=== PATIENT | female | born 1970 ===

== ENCOUNTER 2017-02-28 10:36 | Emergency (ER) | payer BC ==
[2017-02-28 10:37] VITALS: BMI 26.6
--- NOTE | 2017-02-28 11:01 | ED PDOC ---
Arrival/HPI - General Historian: Patient - History of Present Illness Time/Duration: 24 hours Symptom Course: Intermittent Quality: Stabbing, Cramping Severity Level: 8 Context: Standing, Walking - General Chief Complaint: Abdominal Pain Time Seen by Provider: 02/28/17 10:41 - History of Present Illness Narrative History of Present Illness (Text): 02/28/17 11:10 46 yo F w h/o pancreatic CA s/p Whipple procedure May 2016 presented to ER with c/o BRBPR and lower abdominal pain. Patient states she was discharged from [facility] on Saturday after having endoscopically clipped gastric wall tear. Patient was well following discharge until yesterday when she started having sharp, occasionally cramping lower abdominal pain and BRBPR. Last BM was last night, which reportedly contained small bright red clots and mucus. Patient denies CP, SOB, fevers, chills, melena, hematemesis, dizziness, confusion. Patient denies previous colonoscopy. (Felisha Redd) Past Medical History - Provider Review Nursing Documentation Reviewed: Yes - Travel History Have you recently traveled outside [place] w/in the past 3 mons?: No - Infectious Disease Hx of Infectious Diseases: None - Tetanus Immunization Tetanus Immunization: Unknown - Past Medical History Past Medical History: No Previous - Pulmonary Hx Asthma: Yes - Endocrine/Metabolic Other/Comment: Pancreatic CA - s/p chemo - Hematological/Oncological Hx Cancer: Yes (Pancreatic CA) - Psychiatric Hx Depression: No Hx Emotional Abuse: No Hx Physical Abuse: No Hx Substance Use: No - Past Surgical History Past Surgical History: No Previous - Surgical History Hx Section: Yes - Anesthesia Hx Anesthesia: Yes Hx Anesthesia Reactions: No Hx Malignant Hyperthermia: No - Suicidal Assessment Feels Threatened In Home Enviroment: No Family/Social History - Physician Review Nursing Documentation Reviewed: Yes Family/Social History: Diabetes, CAD/MA Smoking Status: Current Some Days Smoker Hx Alcohol Use: No Hx Substance Use: No Hx Substance Use Treatment: No Allergies/Home Meds Allergies/Adverse Reactions: Allergies No Known Allergies Allergy (Verified 02/28/17 11:03) Review of Systems - Physician Review All systems were reviewed & negative as marked: Yes - Review of Systems Constitutional: Fatigue. absent: Fevers Eyes: absent: Vision Changes ENT: absent: Hearing Changes Respiratory: absent: SOB, Cough, Sputum Cardiovascular: Edema (BL LEs). absent: Chest Pain Gastrointestinal: Abdominal Pain (lower), Hematochezia. absent: Constipation, Diarrhea, Nausea, Vomiting, Hematemesis Genitourinary Female: absent: Dysuria Skin: absent: Rash, Skin Lesions Neurological: absent: Headache, Dizziness, Focal Weakness Endocrine: absent: Diaphoresis, Polyuria, Polydipsia Hemo/Lymphatic: absent: Adenopathy, Easy Bleeding, Easy Bruising Psychiatric: absent: Anxiety, Depression Physical Exam Temperature: Afebrile Blood Pressure: Normal Pulse: Regular Respiratory Rate: Normal Appearance: Positive for: Well-Appearing, Comfortable Pain Distress: Mild Mental Status: Positive for: Alert and Oriented X 3 - Systems Exam Head: Present: Atraumatic, Normocephalic Pupils: Present: PERRL. No: Sluggish Extroacular Muscles: Present: EOMI. No: Gaze Palsy Mouth: Present: Moist Mucous Membranes Nose (External): Present: Atraumatic. No: Abrasion Nose (Internal): Present: Normal Inspection Neck: Present: Normal Range of Motion. No: Meningeal Signs, JVD Respiratory/Chest: Present: Clear to Auscultation, Good Air Exchange. No: Respiratory Distress, Accessory Muscle Use Cardiovascular: Present: Regular Rate and Rhythm, Normal S1, S2 Abdomen: Present: Tenderness (lower abdomen), Normal Bowel Sounds, Scars. No: Distention, Peritoneal Signs, Rebound, Guarding Upper Extremity: Present: Normal Inspection. No: Cyanosis, Edema Lower Extremity: Present: Edema (1+ BL LE pitting ). No: CALF TENDERNESS, Cyanosis, Toan's Sign Neurological: Present: GCS=15, CN II-XII Intact, Speech Normal Skin: Present: Warm, Dry. No: Rashes Psychiatric: Present: Alert, Oriented x 3, Normal Insight, Normal Concentration Vital Signs Temp Pulse Resp BP Pulse Ox 02/28/17 15:44 94 H 16 93/53 L 99 02/28/17 11:43 79 18 104/65 100 02/28/17 10:56 98.9 F 86 18 95/67 L 100 02/28/17 10:37 98.2 F 83 18 105/58 L 97 Medical Decision Making Re-evaluation Time: 15:02 Reassessment Condition: Re-examined, Improved - Lab Interpretations I have reviewed the lab results: Yes - RAD Interpretation [facility] Examiner: Radiologist - EKG Interpretation Interpreted by ED Physician: Yes Type: 12 lead EKG ED Course and Treatment: Patient seen and examined with resident Came up with treatment and disposition plan with resident A 46 year old female with rectal bleeding and lower abdominal pain. In agreement with resident note, which includes further HPI details. (AuroraantionetteColeman) 02/28/17 11:30 46 yo F w h/o pancreatic cancer s/p whipple presented with BRBPR and lower abdominal pain. Labs, EKG, CT A/P with IV and PO contrast, EKG, Type and Screen. IV protonix, IVF. Records requested from [facility]. Called GI, Dr. Turner for evaluation. 02/28/17 11:[address] Turner in ER. Requests CT A/P with PO and IV contrast if kidney function ok on labwork. 02/28/17 13:34 Patient re-evaluated. Denies abdominal pain at this time. Patient refuses CT A/P , states she recently had one done at [facility], requests transfer to [facility] since they have not yet sent us her old records. [facility] contacted, awaiting call back from potential accepting physician (Dr. Quezada as per patient). 02/28/17 14:14 Patient re-examined. NAD. Denies any further abd pain. Denies BRBPR since this AM, had small BM, normal formed. Currently drinking PO contrast. Patient agreeable to admission here and potential transfer at a later time if [facility] physician cannot be contacted. 02/28/17 14:[address] Quezada at [facility], where the patient was recently admitted. Case discussed in-depth. He recommends outpatient GI followup with the patient's deaf interpreter at [facility]. Patient agreeable with plan, finishing PO contrast for CT A/P. 02/28/17 18:[address] Turner regarding CT results. (see full report). Concerned re: colonoscopy prep given uncertain location of recent gastric bleed/tear. Willing to do flex sig if family is agreeable. Spoke with patient and her , who is at bedside. They prefer to see GI in AM in office. Patient denies any abdominal pain currently, abdomen is soft, nontender, nondistended, no rebound, guarding or rigidity. Patient able to tolerate PO intake without abdominal pain, nausea, or any problems. Patient and extensively counseled regarding need for immediate GI followup, continue iron and protonix meds given at [facility] (patient states she has all prescriptions and does not want new ones). Patient also instructed to maintain clear liquid diet, as suggested by Dr. Turner until she can followup with GI in the office. Patient counseled to return to ER immediately if she starts having rectal bleeding again, fevers, chills, CP, SOB, or any concerning symptoms. Patient and her are agreeable and request discharge. (Felisha Redd) - Lab Interpretations Lab Results: 02/28/17 12:00 02/28/17 12:00 Lab Results 02/28/17 12:00: WBC 6.6, RBC 2.79 L, Hgb 8.6 L, Hct 26.0 L, MCV 93.2, MCH 30.8, MCHC 33.1, RDW 18.6 H, Plt Count 159, MPV 11.9 H, Gran % 80.0 H, Lymph % (Auto) 11.8 L, Pine % (Auto) 7.4 H, Eos % (Auto) 0.8 L, Baso % (Auto) 0.0, Gran # 5.30 , Lymph # 0.8 L, Pine # 0.5, Eos # 0.1, Baso # 0.00, Sodium 136, Potassium 3.8, Chloride 107, Carbon Dioxide 24, Anion Gap 9 L, BUN 11, Creatinine 0.6, Est GFR ( Amer) > 60, Est GFR (Non-Af Amer) > 60, Random Glucose 97, Calcium 7.6 L, Magnesium 2.0, Iron 56, TIBC 212 L, % Saturation 26, Ferritin Pending, Total Bilirubin 2.7 H, AST 94 H, ALT 45, Alkaline Phosphatase 148 H, Troponin I < 0.01 , Total Protein 6.5, Albumin 2.2 L, Globulin 4.3, Albumin/Globulin Ratio 0.5 L, Blood Type O POSITIVE, Antibody Screen Negative, BBK History Checked No verified bt - RAD Interpretation Narrative RAD Interpretations (Text): 02/28/17 18:11 CT A/P with PO and IV contrast Vrad read -- marked hepatic steatosis and hepatosplenomegaly. Findings could be associated with chronic liver disease such as cirrhosis or liver failure. There is also mild ascites identified. There is fluid and edema in the mesentery and retroperitoneum, this could be in relation to liver failure although sequela of pancreatitis are also a consideration. Pancreas itself does not show any direct inflammatory changes. Please correlate with amylase and lipase level. Postsurgical changes. There is moderate thickening of the colonic loops as described. Presence of mild colitits cannot be excluded. Please correlate clinically. Bilateral ovarian cysts as described. Please followup with sonogram to ensure stability. (Felisha Redd) Radiology Orders: 02/28/17 13:01 ABD PELVIS PO & IV CONTRAST [CT] Stat - EKG Interpretation EKG Interpretation (Text): 02/28/17 14:15 NSR 83bpm, No St-T wave abnormalities. (Felisha Redd) - Medication Orders Current Medication Orders: Discontinued Medications Sodium Chloride (Sodium Chloride 0.9%) 1,000 mls @ 999 mls/hr IV .Q1H1M STA Stop: 02/28/17 12:18 Last Admin: 02/28/17 11:58 Dose: 999 MLS/HR eMAR Start Stop Document 02/28/17 11:58 MMA (Rec: 02/28/17 11:58 [facility] [id number]) Intravenous Solution Start Date 02/28/17 Start Time 11:58 End Date 02/28/17 End time 12:58 Total Infusion Time 60 Iohexol (Omnipaque 240 (50 Ml)) Confirm Administered Dose 50 ml .ROUTE .STK-MED ONE Stop: 02/28/17 13:06 Iohexol (Omnipaque 350 100 Ml) Confirm Administered Dose 350 mg .ROUTE .STK-MED ONE Stop: 02/28/17 13:12 Pantoprazole Sodium (Protonix Inj) 40 mg IVP STAT STA Stop: 02/28/17 11:19 Last Admin: 02/28/17 11:57 Dose: 40 MG IVP Administration Document 02/28/17 11:57 MMA (Rec: 02/28/17 11:58 MMA [id number]) Charges for Administration # of IVP Administrations 1 Pantoprazole Sodium (Protonix Inj) 40 mg IVP STAT STA Stop: 02/28/17 18:40 Disposition/Present on Arrival - Present on Arrival Any Indicators Present on Arrival: No History of DVT/PE: No History of Uncontrolled Diabetes: No Urinary Catheter: No History of Decub. Ulcer: No History Surgical Site Infection Following: None - Disposition Have Diagnosis and Disposition been Completed?: Yes Disposition Time: 18:39 Patient Plan: Discharge - Disposition Diagnosis: Abdominal pain Disposition: HOME/ ROUTINE Patient Problems: Current Active Problems Problem Status Diagnosed Abdominal pain Acute Condition: STABLE Discharge Instructions (ExitCare): Abdominal Pain (ED) Print Language: S[place]ORE[place] Additional Instructions: Please followup with your primary care physician within 1-3 days. Please followup with your deaf interpreter at [facility] within 1-3 days. Please maintain a clear liquid diet until you followup with your deaf interpreter. Referrals: Nagi Damon MD [Primary Care Provider] - Follow up with primary Forms: WORK NOTE, MTDTS
[2017-02-28 11:03] VITALS: TEMP 98.9
[2017-02-28] MEDS ORDERED: Sodium Chloride 0.9% 1,000 ML IV STA (11:18)
[2017-02-28 12:08] LABS: ADD MANUAL DIFF? NO
[2017-02-28 12:16] LABS: EOS # 0.1 (0.0-0.7); EOS % 0.8 % (1.5-5.0); LYMPH # 0.8 (1.2-3.4); LYMPH % 11.8 % (22.0-35.0); MEAN CELL VOLUME 93.2 fL (80.0-105.0); MEAN CORPUSCULAR HEMOGLOBIN 30.8 pg (25.0-35.0); MEAN CORPUSCULAR HGB CONC 33.1 g/dl (31.0-37.0); MEAN PLATELET VOLUME 11.9 fl (7.0-11.0); MONO # 0.5 (0.1-0.6); MONO % 7.4 % (1.0-6.0); PLATELET COUNT 159 10^3/uL (120.0-450.0); RED CELL DISTRIBUTION WIDTH 18.6 % (11.5-14.5); WHITE BLOOD COUNT 6.6 10^3/ul (4.5-11.0)
[2017-02-28 12:23] LABS: ALB/GLOB RATIO 0.5 (1.1-1.8); ALKALINE PHOSPHATASE 148 U/L (38-133); ALT/SGPT 45 U/L (7-56); AST/SGOT 94 U/L (15-39); BILIRUBIN,TOTAL 2.7 mg/dL (0.2-1.3); BLOOD UREA NITROGEN 11 mg/dL (7-21); CALCIUM 7.6 mg/dL (8.4-10.5); CARBON DIOXIDE 24 mmol/L (21-33); CHLORIDE 107 mmol/L (98-107); GFR AFRICAN-AMERICAN > 60; GLUCOSE,RANDOM 97 mg/dL (70-110); POTASSIUM 3.8 mmol/L (3.6-5.0); SODIUM 136 mmol/L (132-148); TOTAL PROTEIN 6.5 g/dL (5.8-8.3)
[2017-02-28 12:31] LABS: IRON 56 ug/dL (45-180)
[2017-02-28 12:45] LABS: TROPONIN I < 0.01 ng/mL
[2017-02-28] MEDS ORDERED: Iohexol 240 (50 ml) ONE (13:05)
[2017-02-28] MEDS ORDERED: Iohexol 350 MG/100 ML VIAL ONE (13:11)
--- NOTE | 2017-02-28 14:55 | CP.PCM.CON ---
History of Present Illness - History of Present Illness History of Present Illness: Seen and examined earlier this afternoon in the ER with family at bedside. Request for consult is for BRBPR. HPI: This is a 46 year old female with history of Pancreatic Cancer, s/p chemotherapy, s/p Whipple in 05/2016 at [facility] comes to the ER with complaints of BRBPR and lower abdominal pain. Her daughter is at the bedside reports that it started started yesterday, noted small amount of blood with stool and today she had another episode with mucous and bloody stool. She has pain lower abdomen to her back. She was recently at [facility] for gastric wall tear which was endocopically clipped. Patient never had colonoscopy. She denies SOB, CP, N/V, fever chills, dizziness. PMH: Pancreatic Cancer, s/p chemo, Gastric wall tear s/p clipping, Asthma SHX: Whipple (05/2016), EGD for gastric wall tear, FHX: DM, CAD Social (+) smoking, denies ETOH, drugs MEDS: reviewed as per MAR ALLERGIES: NKDA ROS: systems reviewed with positive findings, see HPI Past Patient History - Infectious Disease Hx of Infectious Diseases: None - Tetanus Immunizations Tetanus Immunization: Unknown - Past Social History Smoking Status: Current Some Days Smoker - PULMONARY Hx Asthma: Yes - ENDOCRINE/METABOLIC Other/Comment: Pancreatic CA - s/p chemo - HEMATOLOGICAL/ONCOLOGICAL Hx Cancer: Yes (Pancreatic CA) - PSYCHIATRIC Hx Depression: No Hx Emotional Abuse: No Hx Physical Abuse: No Hx Substance Use: No - SURGICAL HISTORY Hx Section: Yes - ANESTHESIA Hx Anesthesia: Yes Hx Anesthesia Reactions: No Hx Malignant Hyperthermia: No Meds Allergies/Adverse Reactions: Allergies Allergy/AdvReac Type Severity Reaction Status Date / Time No Known Allergies Allergy Verified 02/28/17 11:03 Physical Exam - Constitutional Appears: No Acute Distress - Head Exam Head Exam: NORMAL INSPECTION - Eye Exam Eye Exam: Normal appearance, PERRL. absent: Scleral icterus - ENT Exam ENT Exam: Mucous Membranes Moist - Neck Exam Neck exam: Positive for: Normal Inspection - Respiratory Exam Respiratory Exam: Clear to Auscultation Bilateral, NORMAL BREATHING PATTERN. absent: Respiratory Distress - Cardiovascular Exam Cardiovascular Exam: +S1, +S2 - GI/Abdominal Exam GI & Abdominal Exam: Normal Bowel Sounds, Soft, Tenderness (bilat lower abodmen) . absent: Guarding, Rebound - Extremities Exam Extremities exam: Positive for: normal inspection, pedal pulses present. Negative for: calf tenderness, pedal edema - Neurological Exam Neurological exam: Alert, Oriented x3 - Skin Skin Exam: Dry, Warm Results - Vital Signs Recent Vital Signs: Last Vital Signs Temp 98.9 F 02/28/17 10:56 Pulse 79 02/28/17 11:43 Resp 18 02/28/17 11:43 BP 104/65 02/28/17 11:43 Pulse Ox 100 02/28/17 11:43 - Labs Result Diagrams: 02/28/17 12:00 02/28/17 12:00 Labs: Laboratory Results - last 24 hr 02/28/17 12:00 WBC 6.6 RBC 2.79 L Hgb 8.6 L Hct 26.0 L MCV 93.2 MCH 30.8 MCHC 33.1 RDW 18.6 H Plt Count 159 MPV 11.9 H Gran % 80.0 H Lymph % (Auto) 11.8 L [place] % (Auto) 7.4 H Eos % (Auto) 0.8 L Baso % (Auto) 0.0 Gran # 5.30 Lymph # 0.8 L [place] # 0.5 Eos # 0.1 Baso # 0.00 Sodium 136 Potassium 3.8 Chloride 107 Carbon Dioxide 24 Anion Gap 9 L BUN 11 Creatinine 0.6 Est GFR ( Amer) > 60 Est GFR (Non-Af Amer) > 60 Random Glucose 97 Calcium 7.6 L Magnesium 2.0 Iron 56 TIBC 212 L % Saturation 26 Total Bilirubin 2.7 H AST 94 H ALT 45 Alkaline Phosphatase 148 H Troponin I < 0.01 Total Protein 6.5 Albumin 2.2 L Globulin 4.3 Albumin/Globulin Ratio 0.5 L Blood Type O POSITIVE Antibody Screen Negative BBK History Checked No verified bt Assessment & Plan - Assessment and Plan (Free Text) Assessment: ASSESSMENT: 46 year old female with PMH of Pancreatic cancer s/p Whipple and chemo, recent gastric wall tear with endoscopic clipping comes with c/o BRBPR and lower abdominal pain. R/O Colitis R/O Diverticular bleed R/O angiodysplasia R/O Hemorrhoids H/O Asthma PLAN: request for ct scan abdomen and pelvis with oral and IV contrast, renal functions stable monitor H/H, bleeding NPO, continue IVF Request records form [facility] for review may benefit from colonoscopy in view of bleeding but will await to review ct scan A&P. Thank you for this consult and for allowing us to participate in y our patients care, will make further recommendations after review of ct scan and based upon patient clinical course. Seen and discussed with Dr. Turner. Spoke to ER Resident.
[2017-02-28 15:45] VITALS: BP 93/53; PULSE 94; RESP 16; O2SAT 99
--- NOTE | 2017-02-28 15:45 | CARD ---
APPROVED REPORT EKG Measurement Heart [id number] <Conclusion> Normal sinus rhythm Normal ECG
--- NOTE | 2017-03-01 07:37 | CT ---
PROCEDURE: CT Abdomen and Pelvis with contrast HISTORY: rectal bleed, h/o pancreatic CA s/p whipple COMPARISON: None. TECHNIQUE: Contrast dose: Radiation dose: Total exam DLP = 100 mL Omnipaque 350 mGy-cm. This CT exam was performed using one or more of the following dose reduction techniques: Automated exposure control, adjustment of the mA and/or kV according to patient size, and/or use of iterative reconstruction technique. FINDINGS: LOWER THORAX: Unremarkable LIVER: Extensive hepatic steatosis. No mass. No biliary dilatation. Biliary stents are noted. Hepatomegaly. Liver measures 22.2 cm craniocaudal. GALLBLADDER AND BILE DUCTS: Status post cholecystectomy. PANCREAS: Status post Whipple procedure. Pancreatic tail and distal body appear intact. No fluid/ edema surrounding residual pancreatic tissue. SPLEEN: Splenomegaly. The spleen measures 14.6 cm greatest dimension. No mass. ADRENALS: Unremarkable. No mass. KIDNEYS AND URETERS: Unremarkable. No hydronephrosis. No solid mass. VASCULATURE: Unremarkable. No aortic aneurysm. BOWEL: Mild circumferential mural thickening involving hepatic flexure, transverse, descending and rectosigmoid colon, sparing the ascending colon to the level of the flexure. Nonspecific but may indicate infectious or inflammatory colitis. No evidence of bowel obstruction. Status post partial gastrectomy with gastrojejunostomy. APPENDIX: Unremarkable PERITONEUM: Mild ascites with fluid in the pericolic gutters and about the liver and spleen. Nonspecific. There is edema of the small bowel mesenteric. There are numerous shotty subcentimeter nodes seen within the small bowel mesenteric common nonspecific. LYMPH NODES: Few mildly enlarged retroperitoneal nodes. No pelvic lymphadenopathy. BLADDER: Unremarkable. REPRODUCTIVE: Unremarkable uterus. Left ovarian cyst, 2.5 x 3.7 cm. BONES: No acute fracture. OTHER FINDINGS: None. IMPRESSION: Status post Whipple procedure. Extensive hepatic steatosis. Two biliary stents. Hepatosplenomegaly. Mild ascites. Edema within the small bowel mesentery as well as numerous subcentimeter mesenteric lymph nodes, nonspecific. Circumferential mural thickening of the colon from the hepatic flexure to the rectosigmoid colon. Consistent with nonspecific colitis. Additional nonacute findings as above. Preliminary interpretation of this examination was reported by Therio at 6:09 p.m. on 02/28/2017. There is concurrence of this report with the preliminary interpretation.
== END 2017-02-28 19:18 | disposition home or self-care (01) ==
LOC: ED 10:36
DX: R10.30 Lower abdominal pain, unspecified (principal); F17.210 Nicotine dependence, cigarettes, uncomplicated
CPT/HCPCS: 74177; 80053; 82728; 83735; 84466; 84484; 85025; 86850; 86900; 93005; 96361; 96374; 99283; C9113; J7040; Q9966; Q9967

== ENCOUNTER 2017-03-19 14:48 | Inpatient (IN) | payer BC ==
[2017-03-19] MEDS ORDERED: Morphine 2 mg/ml ISec IVP STA (15:49)
--- NOTE | 2017-03-19 15:56 | ED PDOC ---
Arrival/HPI - General Chief Complaint: Medical Clearance Time Seen by Provider: 03/19/17 14:49 Historian: Patient - History of Present Illness Narrative History of Present Illness (Text): 03/19/17 15:49 A 46 year old female, whose past medical history includes pancreatic cancer s/p whipple in 2016, presents to the emergency department complaining of progressively worsening lower extremity swelling over the past 7-10 days. Patient notes an increase in abdominal girth, as well, abdominal pain radiating to her back. Patient reports she was recently seen at [facility] for elevated ammonia levels. Family states they noticed patient appeared jaundice 2 days ago. Patient was seen by PMD today who found patients blood pressure to be low and sent her in for further evaluation and treatment. Patient denies any fever, chills, nausea, vomiting, diarrhea, urinary symptoms, chest pain, shortness of breath or any other complaints. PMD: Dr. Damon Time/Duration: Other (7-10 days) Symptom Course: Worsening Quality: Other Context: Home Past Medical History - Provider Review Nursing Documentation Reviewed: Yes - Infectious Disease Hx of Infectious Diseases: None - Tetanus Immunization Tetanus Immunization: Unknown - Past Medical History Past Medical History: No Previous - Pulmonary Hx Asthma: Yes - Endocrine/Metabolic Other/Comment: Pancreatic CA - s/p chemo - Hematological/Oncological Hx Cancer: Yes (Pancreatic CA) - Gastrointestinal Other/Comment: Pancreatic Cancer. Liver Problems (Pt states new problem and is unclear as to what is going on). - Psychiatric Hx Depression: No Hx Emotional Abuse: No Hx Physical Abuse: No Hx Substance Use: No - Past Surgical History Past Surgical History: No Previous - Surgical History Hx Section: Yes (x2) Other/Comment: Whipple Surgery - Anesthesia Hx Anesthesia: Yes Hx Anesthesia Reactions: No Hx Malignant Hyperthermia: No - Suicidal Assessment Feels Threatened In Home Enviroment: No Family/Social History - Physician Review Nursing Documentation Reviewed: Yes Family/Social History: No Known Family HX Smoking Status: Current Some Days Smoker Hx Alcohol Use: No Hx Substance Use: No Hx Substance Use Treatment: No Allergies/Home Meds Allergies/Adverse Reactions: Allergies No Known Allergies Allergy (Verified 03/19/17 15:12) Home Medications: Home Meds Medication Instructions Recorded Confirmed Ferrous Sulfate [Feosol] 325 mg PO DAILY 03/19/17 03/19/17 Furosemide [Lasix] 40 mg PO DAILY 03/19/17 03/19/17 Lactulose [Generlac] 30 ml PO Q12 03/19/17 03/19/17 Lipase/Protease/Amylase [Zenpep Dr 5,000 unit PO TID 03/19/17 03/19/17 10,000 Units Capsule] Ondansetron 4 mg PO Q6 03/19/17 03/19/17 Pantoprazole [Protonix] 40 mg PO DAILY 03/19/17 03/19/17 Spironolactone [Aldactone] 0.5 tab PO DAILY 03/19/17 03/19/17 Sucralfate [Carafate] 1 gm PO Q6 03/19/17 03/19/17 Review of Systems - Physician Review All systems were reviewed & negative as marked: Yes - Review of Systems Constitutional: absent: Fevers, Night Sweats Respiratory: absent: SOB Cardiovascular: absent: Chest Pain Gastrointestinal: Abdominal Pain (radiating to back), Other (Abdominal girth). absent: Diarrhea, Nausea, Vomiting Genitourinary Female: absent: Dysuria, Frequency, Hematuria, Urine Output Changes Musculoskeletal: Other (Bilateral lower extremity swelling) Skin: Other (Jaundice) Physical Exam Vital Signs Reviewed: Yes Vital Signs Temp Pulse Resp BP Pulse Ox 03/19/17 15:57 86 18 102/61 99 03/19/17 14:53 98.2 F 95 H 18 100/58 L 99 Temperature: Afebrile Blood Pressure: Hypotensive Pulse: Tachycardic Respiratory Rate: Normal Appearance: Positive for: Comfortable, Other (Jaundiced 46 y.o. female) Pain Distress: None Mental Status: Positive for: Alert and Oriented X 3 - Systems Exam Head: Present: Atraumatic, Normocephalic Pupils: Present: PERRL Conjunctiva: Present: Other (scleral icterus) Mouth: Present: Moist Mucous Membranes Pharnyx: Present: Normal. No: ERYTHEMA, EXUDATE Neck: Present: Normal Range of Motion Respiratory/Chest: Present: Clear to Auscultation, Good Air Exchange. No: Respiratory Distress, Accessory Muscle Use Cardiovascular: Present: Regular Rate and Rhythm, Normal S1, S2. No: Murmurs Abdomen: Present: Distention (Mild distension), Normal Bowel Sounds. No: Tenderness, Peritoneal Signs Back: Present: Normal Inspection Upper Extremity: Present: Normal Inspection. No: Cyanosis, Edema Lower Extremity: Present: Normal Inspection, Edema (+2 edema bilaterally) Neurological: Present: GCS=15, CN II-XII Intact, Speech Normal Skin: Present: Warm, Dry, Normal Color. No: Rashes Psychiatric: Present: Alert, Oriented x 3, Normal Insight, Normal Concentration Medical Decision Making ED Course and Treatment: 03/19/17 15:49 Impression: A 46 year old female with worsening lower extremity swelling. Patient notes abdominal girth, abdominal pain radiating to back and jaundice. Plan: -- Chest xray -- Labs -- Blood and Urine culture -- Urinalysis -- Morphine -- Reassess and disposition Prior Visits: Notes and results from previous visits were reviewed. Patient last seen in the ED on 02/28/17 for abdominal pain. Progress Notes: 03/19/17 17:15 Patient pancreatic cancer with recurrence of jaundice now as well as edema. Will need GI and oncology eval. Labs showing anemia with bili up to 8.7 - will need to be admitted for further eval and treatment. Case was previously discussed with Dr. Damon who sent the patient to the ED. Case endorsed to resident Dr. Whitmore for admission orders. - Lab Interpretations Lab Results: 03/19/17 15:58 03/19/17 15:52 Lab Results 03/19/17 16:10: Urine Color Dark yellow, Urine Appearance Sl cloudy, Urine pH 6.0, Ur Specific [place] 1.025, Urine Protein 30 H, Urine Glucose (UA) Negative , Urine Ketones 15 H, Urine Blood Negative, Urine Nitrate Positive H, Urine Bilirubin Large H, Urine Urobilinogen 1.0 H, Ur Leukocyte Esterase Trace H, Urine RBC Tntc, Urine WBC 0 - 2, Ur Epithelial Cells 1 - 3, Urine Bacteria Mod 03/19/17 15:58: WBC 7.5, RBC 2.38 L, Hgb 7.8 L, Hct 22.8 L, MCV 95.8, MCH 32.8, MCHC 34.2, RDW 20.7 H, Plt Count 177, MPV 10.8, Gran % 79.2 H, Lymph % (Auto) 12.3 L, [place] % (Auto) 8.0 H, Eos % (Auto) 0.4 L, Baso % (Auto) 0.1, Gran # 5.93 , Lymph # 0.9 L, [place] # 0.6, Eos # 0.0, Baso # 0.01 03/19/17 15:52: Sodium 136, Potassium 3.9, Chloride 101, Carbon Dioxide 27, Anion Gap 12, BUN 9, Creatinine 0.7, Est GFR ( Amer) > 60, Est GFR (Non- Af Amer) > 60, Random Glucose 85, Calcium 7.3 L, Total Bilirubin 8.7 H, Direct Bilirubin Pending, AST 134 H, ALT 51, Alkaline Phosphatase 141 H, Total Protein 6.8, Albumin 2.0 L, Globulin 4.7, Albumin/Globulin Ratio 0.4 L, Amylase < 30 L, Lipase < 10 L 03/19/17 15:52: PT 22.0 H, INR 2.04 H, APTT 46.9 H I have reviewed the lab results: Yes - RAD Interpretation Radiology Orders: 03/19/17 15:15 CHEST PORTABLE [RAD] Stat - Medication Orders Current Medication Orders: Discontinued Medications Ceftriaxone Sodium (Rocephin 1 Gram Ivpb) 1 gm in 100 mls @ 200 mls/hr IV ONCE STA PRN Reason: Protocol Stop: 03/19/17 17:13 Last Admin: 03/19/17 16:56 Dose: 200 mls/hr Morphine Sulfate (Morphine) 2 mg IVP STAT STA Stop: 03/19/17 15:50 Last Admin: 03/19/17 16:21 Dose: 2 mg - Scribe Statement The provider has reviewed the documentation as recorded by the Dylanibdequan Chance Provider Scribe Attestation: All medical record entries made by the Dylanibdequan were at my direction and personally dictated by me. I have reviewed the chart and agree that the record accurately reflects my personal performance of the history, physical exam, medical decision making, and the department course for this patient. I have also personally directed, reviewed, and agree with the discharge instructions and disposition. Disposition/Present on Arrival - Present on Arrival Any Indicators Present on Arrival: No History of DVT/PE: No History of Uncontrolled Diabetes: No Urinary Catheter: No History of Decub. Ulcer: No History Surgical Site Infection Following: None - Disposition Have Diagnosis and Disposition been Completed?: Yes Diagnosis: Jaundice, Urinary tract infection Disposition: HOSPITALIZED Disposition Time: 16:40 Patient Plan: Admission Condition: FAIR Referrals: Nagi Damon MD [Primary Care Provider] - Follow up with primary
[2017-03-19 16:09] LABS: ADD MANUAL DIFF? NO
[2017-03-19 16:15] LABS: BASO # 0.01 K/mm3 (0.0-2.0); BASO % 0.1 % (0.0-3.0); EOS % 0.4 % (1.5-5.0); GRAN # 5.93 (1.4-6.5); GRAN % 79.2 % (50.0-68.0); LYMPH # 0.9 (1.2-3.4); LYMPH % 12.3 % (22.0-35.0); MEAN CELL VOLUME 95.8 fL (80.0-105.0); MEAN CORPUSCULAR HEMOGLOBIN 32.8 pg (25.0-35.0); MEAN CORPUSCULAR HGB CONC 34.2 g/dl (31.0-37.0); MEAN PLATELET VOLUME 10.8 fl (7.0-11.0); MONO # 0.6 (0.1-0.6); PLATELET COUNT 177 10^3/uL (120.0-450.0); RED CELL DISTRIBUTION WIDTH 20.7 % (11.5-14.5); WHITE BLOOD COUNT 7.5 10^3/ul (4.5-11.0)
[2017-03-19 16:23] LABS: INR 2.04 (0.93-1.08); PARTIAL THROMBOPLASTIN TIME 46.9 Seconds (23.7-30.8)
[2017-03-19 16:28] LABS: URINE BILIRUBIN LARGE (NEGATIVE); URINE BLOOD NEGATIVE (NEGATIVE); URINE GLUCOSE (UA) NEGATIVE (NEGATIVE); URINE KETONE 15 mg/dL (NEGATIVE); URINE LEUKOCYTE ESTERASE TRACE Leu/uL (NEGATIVE); URINE PROTEIN 30 mg/dL (<30 mg/dL)
[2017-03-19 16:29] LABS: HEMATOCRIT 22.8 % (36.0-48.0)
[2017-03-19 16:30] LABS: ALB/GLOB RATIO 0.4 (1.1-1.8); ALKALINE PHOSPHATASE 141 U/L (38-133); ALT/SGPT 51 U/L (7-56); AST/SGOT 134 U/L (15-39); BILIRUBIN,TOTAL 8.7 mg/dL (0.2-1.3); BLOOD UREA NITROGEN 9 mg/dL (7-21); CALCIUM 7.3 mg/dL (8.4-10.5); CARBON DIOXIDE 27 mmol/L (21-33); CHLORIDE 101 mmol/L (98-107); GFR AFRICAN-AMERICAN > 60; GLUCOSE,RANDOM 85 mg/dL (70-110); POTASSIUM 3.9 mmol/L (3.6-5.0); SODIUM 136 mmol/L (132-148); TOTAL PROTEIN 6.8 g/dL (5.8-8.3)
[2017-03-19 16:30] LABS: URINE APPEARANCE SL CLOUDY (CLEAR); URINE COLOR DARK YELLOW (YELLOW)
[2017-03-19 16:33] LABS: AMYLASE < 30 U/L (35-125); LIPASE < 10 U/L (23-300)
[2017-03-19 16:42] LABS: URINE BACTERIA MOD (NEG); URINE RBC TNTC /hpf (0-2); URINE WBC 0 - 2 /hpf (0-6)
[2017-03-19] MEDS ORDERED: cefTRIAXone 1 gm 1 GM/100 ML BAG IV STA (16:44)
[2017-03-19] MEDS: Morphine 2 mg/ml ISec IVP PRN (18:35)
--- NOTE | 2017-03-19 19:23 | US ---
EXAM: US Abdomen Complete CLINICAL HISTORY: 46 years old, female; Pain; Abdominal pain; Generalized; Prior surgery; Surgery date: 6+ months; Surgery type: Whipple; Additional info: R/O cirrhosis TECHNIQUE: Real-time ultrasound of the abdomen (complete) with image documentation. EXAM DATE/TIME: 03/19/2017 6:08 PM COMPARISON: CT - ABD PELVIS PO IV CONTRAST 02/28/2017 4:57:45 PM FINDINGS: Liver: There is diffuse increased echogenicity to the liver. Liver is enlarged.There is hepatopedal flow in the main portal vein. There is color flow in hepatic veins. Gallbladder: Gallbladder is surgically absent. Common bile duct: Common bile duct measures 5 mm in diameter. Pancreas: Pancreas is obscured by bowel gas. Kidneys: Kidneys are unremarkable. Spleen: Spleen is at lower 17.6 cm in length. Aorta: Aorta and inferior vena cava are not well demonstrated. Inferior vena cava: See above. Free fluid: There is ascites in all 4 quadrants of the abdomen, greatest in the right upper quadrant. IMPRESSION: Hepatosplenomegaly; fatty infiltration the liver; ascites; cholecystectomy, no ductal dilatation, biliary stent seen on CT 02/28/17 not definitely identified; nonvisualization of pancreas Patient was not tender over the gallbladder
[2017-03-19] MEDS: Albumin Human 25% (25 gm/100 ml) IV SCH (19:31)
[2017-03-19 20:56] VITALS: BMI 27.4
--- NOTE | 2017-03-19 21:46 | CP.PCM.HP ---
<Golden Whitmore - Last Filed: 03/20/17 09:46> History of Present Illness - History of Present Illness History of Present Illness: HPI: Patient is a 46yo female with past medical history of Pancreatic Ca s/p whipple, gastric wall tear s/p repair and asthma that presents c/o yellowing of her skin and eyes. Patient reports that 4 weeks prior she began to notice swelling of her legs. She reported having been prescribed diuretics for the leg swelling however noted no improvement. Shortly thereafter she was admitted to [facility] for abdominal pain and reportedly had a "slight tear in the lining of my stomach." She reports that this was surgically repaired and she was subsequently discharged home. Shortly after being discharged home, she reported having abdominal pain and coming to [facility] for evaluation at which point a CT abd/pelvis was done and she reported being discharged home. Patient reported that last Saturday she was found to be confused and altered by her family and was taken to [facility] where she was treated for hepatic encephalopathy. She was subsequently discharged on lactulose and instructed to follow up with her PMD, Dr. Damon. Today, she presents on recommendation of her PMD for further workup of her jaundice and worsening lower extremity edema. Denies chest pain, palpitations, SOB, nausea, vomiting, fever, chills, cough. 12 point ROS as per HPI above, otherwise negative PMHx: Pancreatic Ca, gastric wall tear, asthma PSHx: Whipple (06/02), , repair of gastric wall tear Allergies: NKDA Medications: Reviewed and as per chart Family Hx: DM, CAD Social Hx: Former tobacco use (quit 1yr ago), denies alcohol and illicit drug use Present on Admission - Present on Admission Any Indicators Present on Admission: No Past Patient History - Infectious Disease Hx of Infectious Diseases: None - Tetanus Immunizations Tetanus Immunization: Unknown - Past Social History Smoking Status: Former Smoker - CARDIAC Hx Cardiac Disorders: No - PULMONARY Hx Respiratory Disorders: Yes Hx Asthma: Yes - NEUROLOGICAL Hx Neurological Disorder: No - HEENT Hx HEENT Problems: No - RENAL Hx Chronic Kidney Disease: No - ENDOCRINE/METABOLIC Hx Endocrine Disorders: No - HEMATOLOGICAL/ONCOLOGICAL Hx Blood Disorders: Yes Hx Anemia: Yes (current) Hx Cancer: Yes (pancrratic cancer) - INTEGUMENTARY Hx Dermatological Problems: No - MUSCULOSKELETAL/RHEUMATOLOGICAL Hx Falls: No - GASTROINTESTINAL Hx Gastrointestinal Disorders: Yes Hx Gall Bladder Disease: Yes (biliary stent) Hx Pancreatitis: Yes (pancreatic cancer) - GENITOURINARY/GYNECOLOGICAL Hx Genitourinary Disorders: No - PSYCHIATRIC Hx Psychophysiologic Disorder: Yes Hx Depression: Yes - SURGICAL HISTORY Hx Surgeries: Yes (whipple, x2, abd internal clamp) Hx Cholecystectomy: (biliary stent) - ANESTHESIA Hx Anesthesia: Yes Hx Anesthesia Reactions: No Hx Malignant Hyperthermia: No Meds Allergies/Adverse Reactions: Allergies Allergy/AdvReac Type Severity Reaction Status Date / Time No Known Allergies Allergy Verified 03/19/17 15:12 Physical Exam - Constitutional Appears: Non-toxic, No Acute Distress - Head Exam Head Exam: ATRAUMATIC, NORMAL INSPECTION, NORMOCEPHALIC - Eye Exam Additional comments: EOMI, PERRLA icteric sclera - ENT Exam ENT Exam: Mucous Membranes Moist - Neck Exam Neck exam: Positive for: Normal Inspection - Respiratory Exam Respiratory Exam: Clear to Auscultation Bilateral. absent: Rales, Rhonchi, Wheezes - Cardiovascular Exam Cardiovascular Exam: RRR, +S1, +S2. absent: Gallop, Rubs - GI/Abdominal Exam GI & Abdominal Exam: Distended (mild distention), Soft. absent: Firm, Guarding , Rebound, Tenderness Additional comments: hepatomegaly - Extremities Exam Extremities exam: Positive for: pedal edema (2+ pitting edema), pedal pulses present. Negative for: tenderness - Neurological Exam Neurological exam: Alert, CN II-XII Intact, Oriented x3 - Psychiatric Exam Psychiatric exam: Normal Affect, Normal Mood - Skin Skin Exam: Dry, Intact, Warm Additional comments: jaundice Results - Vital Signs Recent Vital Signs: Last Vital Signs Temp 98.1 F 03/19/17 19:20 Pulse 88 03/19/17 19:54 Resp 20 03/19/17 20:26 BP 95/50 L 03/19/17 19:54 Pulse Ox 98 03/19/17 19:54 - Labs Result Diagrams: 03/20/17 06:00 03/20/17 06:00 Labs: Laboratory Results - last 24 hr 03/19/17 16:42 Ammonia 39 H Assessment & Plan - Assessment and Plan (Free Text) Plan: 1. Jaundice -EKG reviewed; normal sinus rhythm, no acute ST-T wave changes -CXR reviewed -Elevated bilirubin, AST, ALKP, Ammonia, INR -Abdominal US pending -CT abd/pelvis pending -CA19-9 Pending -Continue lactulose; will titrate to 2-3 bowel movement per day -Pending: hepatitis panel, serum alcohol, HIRO, anti-SMA, Anti-Mitochondrial ab, ceruloplasmin, ferritin, transferrin -GI consulted - Dr. Turner 2. History of pancreatic ca -CT abd/pelvis pending -CA19-9 Pending -Heme/onc consulted - Dr. Smith 3. Anemia -Iron, Ferritin, TIBC pending -B12, folate pending -Will continue to monitor H/H closely 4. GI/DVT prophylaxis -Protonix/SCD's Patient discussed with attending, Dr. Damon - Date & Time Date: 03/19/17 Time: 21:53 <Nagi Damon - Last Filed: 03/22/17 09:01> Results - Vital Signs Recent Vital Signs: Last Vital Signs Temp 98.2 F 03/21/17 19:49 Pulse 90 03/21/17 19:49 Resp 20 03/21/17 19:49 BP 119/71 03/21/17 19:49 Pulse Ox 97 03/21/17 16:00 - Labs Result Diagrams: 03/21/17 06:30 03/21/17 06:30 Labs: Laboratory Results - last 24 hr 03/20/17 03/20/17 06:00 07:38 HIRO Screen Negative HIRO Titer TEST NOT PERFORMED HIRO Titer 2 TEST NOT PERFORMED HIRO Pattern TEST NOT PERFORMED HIRO Pattern 2 TEST NOT PERFORMED Anti-Mitochondrial Ab Negative Anti-Smooth Muscle Ab Negative Blood Type O POSITIVE Antibody Screen Negative Crossmatch See Detail BBK History Checked Patient has bt Attending/Attestation - Attestation I have personally seen and examined this patient.: Yes I have fully participated in the care of the patient.: Yes I have reviewed all pertinent clinical information: Yes Notes (Text): 03/22/17 09:01 Medical record note made by the resident after discussion with my direction and input after the patient was personally seen and examined by me. I have reviewed the chart and agree that the record accurately reflects by personal performance of the history, physical exam, data review, and medical decision-making, in the course for the patient. I have also personally directed the plan of care.
[2017-03-19 22:24] LABS: RETIC% 2.43 % (0.5-1.5)
[2017-03-19 22:26] LABS: IRON 100 ug/dL (45-180)
[2017-03-19 22:29] LABS: ALCOHOL SERUM < 10 mg/dL (0-10)
[2017-03-20 06:23] LABS: ADD MANUAL DIFF? NO
[2017-03-20 06:27] LABS: BASO # 0.01 K/mm3 (0.0-2.0); BASO % 0.1 % (0.0-3.0); EOS % 0.5 % (1.5-5.0); GRAN # 5.83 (1.4-6.5); GRAN % 78.5 % (50.0-68.0); LYMPH % 13.4 % (22.0-35.0); MEAN CELL VOLUME 96.2 fL (80.0-105.0); MEAN CORPUSCULAR HEMOGLOBIN 32.7 pg (25.0-35.0); MEAN PLATELET VOLUME 10.1 fl (7.0-11.0); MONO # 0.6 (0.1-0.6); MONO % 7.5 % (1.0-6.0); PLATELET COUNT 142 10^3/uL (120.0-450.0); RED CELL DISTRIBUTION WIDTH 20.9 % (11.5-14.5); WHITE BLOOD COUNT 7.4 10^3/ul (4.5-11.0)
[2017-03-20 06:37] LABS: HEMATOCRIT 20.3 % (36.0-48.0)
[2017-03-20] MEDS ORDERED: Sodium Chloride 0.9% 1,000 ML IV SCH (06:45)
[2017-03-20 06:46] LABS: ALB/GLOB RATIO 0.5 (1.1-1.8); ALKALINE PHOSPHATASE 99 U/L (38-133); ALT/SGPT 50 U/L (7-56); AST/SGOT 127 U/L (15-39); BILIRUBIN,TOTAL 10.6 mg/dL (0.2-1.3); BLOOD UREA NITROGEN 11 mg/dL (7-21); CALCIUM 7.5 mg/dL (8.4-10.5); CARBON DIOXIDE 28 mmol/L (21-33); CHLORIDE 104 mmol/L (98-107); GFR AFRICAN-AMERICAN > 60; GLUCOSE,RANDOM 80 mg/dL (70-110); POTASSIUM 3.9 mmol/L (3.6-5.0); SODIUM 137 mmol/L (132-148); TOTAL PROTEIN 6.5 g/dL (5.8-8.3)
[2017-03-20] MEDS ORDERED: Barium Sulfate Susp 2.1% w/v, 2.0% w/w 450 mL Bottle PO ONE (07:17)
[2017-03-20] MEDS ORDERED: Iohexol 350 MG/100 ML VIAL ONE (08:28)
[2017-03-20] MEDS: Amylase/Lipase/Protease 5,000 U ECC PO SCH ×3 (08:31→18:41)
--- NOTE | 2017-03-20 08:36 | RAD ---
HISTORY: jaundice COMPARISON: No prior. FINDINGS: LUNGS: No active pulmonary disease. PLEURA: No significant pleural effusion identified, no pneumothorax apparent. CARDIOVASCULAR: Normal heart size. Left anterior Port-A-Cath -tip estimated right atrium. OSSEOUS STRUCTURES: No significant abnormalities. VISUALIZED UPPER ABDOMEN: Normal. OTHER FINDINGS: None. IMPRESSION: No active disease.
[2017-03-20] MEDS: Morphine 2 mg/ml ISec IVP PRN ×3 (10:00→20:51)
--- NOTE | 2017-03-20 10:53 | CON ---
DATE: 03/20/2017 REASON FOR CONSULTATION: History of pancreatic cancer, status post gastric wall tear and severe anem ia. HISTORY OF PRESENT ILLNESS: The patient is a 46-year-old female with past medical history significan t for pancreatic cancer, status post Whipple in 06/2016. Subsequently, also received adjuvant chemot herapy, but no radiation. Recently, the patient was seen by her oncologist at [place] and was noted t o have a low hemoglobin. She was discovered to have a gastric wall tear, status post repair. Now pr esents to the PMD with complaints of bilateral lower extremity swelling and noted to be jaundiced. S he was subsequently admitted and now being worked up for her severe anemia as well as elevation of to grace bilirubin. She denies any abdominal pain. She does complain of abdominal swelling and increased girth as well as bilateral lower extremity swelling. She has been recently found to be confused and altered mental status, and was taken to [facility] where she was treated for hepatic encephalopathy, subsequently discharged on lactulose. She does deny any nausea, vomiting, diarrhea. Denies any weight loss, but she has gained about 20 pounds of water weight. PAST MEDICAL HISTORY: As above. Significant for pancreatic cancer, gastric wall tear, asthma. PAST SURGICAL HISTORY: Significant for a Whipple's procedure in 2016, repair of gastric wall. ALLERGIES: No known drug allergies. MEDICATIONS: As per the chart. FAMILY HISTORY: Positive for diabetes, coronary artery disease. SOCIAL HISTORY: Positive for smoking in the past. Denies any alcohol or illicit drug use. REVIEW OF SYSTEMS: As per the HPI. PHYSICAL EXAMINATION: VITAL SIGNS: Reveal a temperature of 98.1, pulse of 88, respiratory rate of 20, and a blood pressure of 95/50. GENERAL: The patient is a middle-aged female sitting up in bed, in no acute distress. She is obviously jaundiced. HEAD AND NECK: Normocephalic, atraumatic. EYES: Pupils equal, round, reactive to light and accommodation. There is marked pallor. There is a lso icterus. NECK: Supple with no adenopathy, no JVD, no thyromegaly. LUNGS: Decreased breath sounds bilaterally at the bases. CARDIOVASCULAR: S1, S2 is heard. ABDOMEN: Ascites is palpable. EXTREMITIES: She has bilateral 3+ pitting edema. LABORATORY DATA: Reveal a white count of 7.4, hemoglobin 6.9, hematocrit 20.3, MCV of 96.2 and a karin telet count of 142. Chemistries reveal a BUN and creatinine of 11 and 0.7. Her total bilirubin is e levated at 10.6, AST is 127. Ammonia is high at 59. CA 19-9 is pending. Her iron studies are also pending. Coag studies reveal INR of 2.0. Tox report is negative for alcohol. Her UA is positive fo r leukocyte esterase as well as nitrites. ASSESSMENT AND PLAN: Middle-aged female with recent history of pancreatic cancer, status post resect ion with Whipple procedure, status post adjuvant chemotherapy. [facility] Also, the patient is currently getting a CT scan to rule out any active bleed ing as her hemoglobin has once again dropped to 6.9. Transfuse 2 units of PRBC. Hemolysis workup is also in process. She will need a complete staging workup once again to rule out recurrent disease. GI is also on consult. Thank you for this very complicated patient. Rajiv Smith MD cc: [id number] TT: 03/20/2017 10:52:49 Confirmation # [id number] Dictation # [id number] frances
[2017-03-20 11:02] LABS: TRANSFERRIN 83.33 mg/dL (206-381)
[2017-03-20] MEDS: Albumin Human 25% (25 gm/100 ml) IV SCH ×2 (11:22→18:41)
[2017-03-20] MEDS: Pantoprazole 40 mg EC Tab PO SCH (11:23)
--- NOTE | 2017-03-20 11:25 | CP.PCM.PN ---
<Golden Whitmore - Last Filed: 03/20/17 11:19> Subjective - Date & Time of Evaluation Date of Evaluation: 03/20/17 Time of Evaluation: 11:19 - Subjective Subjective: Medicine progress note - Golden Whitmore PGY 1 Patient seen and examined at bedside. No acute overnight events or new complaints. Discussed current workup/plan with patient in detail. Hgb was noted to be 6.9 this morning. Discussed with patient need for transfusion and consent was obtained. Will be transfused 2units pRBC's. Pending anemia workup to find the source of the blood loss. Denies chest pain, palpitations, SOB. Will continue to follow this complicated patient closely. Objective - Vital Signs/Intake and Output Vital Signs (last 24 hours): Temp Pulse Resp BP Pulse Ox 97.8 F 90 18 97/53 L 95 03/20/17 06:00 03/20/17 06:00 03/20/17 06:00 03/20/17 06:00 03/20/17 06:00 Intake and Output: 03/20/17 03/20/17 06:59 18:59 Intake Total 240 Balance 240 - Medications Medications: Current Medications Amylase (Pancrease 13521 U-5000 U-69811 U) 5,000 u PO WM TK Last Admin: 03/20/17 08:31 Dose: 5,000 u Ferrous Sulfate (Feosol) 324 mg PO DAILY TK Furosemide (Lasix) 40 mg PO DAILY TK Sodium Chloride (Sodium Chloride 0.9%) 1,000 mls @ 100 mls/hr IV .Q10H TK Lactulose (Enulose) 30 gm PO TID TK Morphine Sulfate (Morphine) 1 mg IVP Q4H PRN PRN Reason: Pain, severe (8-10) Last Admin: 03/19/17 18:35 Dose: 1 mg Pantoprazole Sodium (Protonix Ec Tab) 40 mg PO DAILY TK Spironolactone (Aldactone) 12.5 mg PO DAILY TK Sucralfate (Carafate Tab) 1 gm PO Q6 TK Last Admin: 03/20/17 05:30 Dose: 1 gm - Labs Labs: 03/20/17 06:00 03/20/17 06:00 PT 22.0 Seconds (9.9-11.8) H 03/19/17 15:52 INR 2.04 (0.93-1.08) H 03/19/17 15:52 APTT 46.9 Seconds (23.7-30.8) H 03/19/17 15:52 - Constitutional Appears: Non-toxic, No Acute Distress - Head Exam Head Exam: ATRAUMATIC, NORMAL INSPECTION, NORMOCEPHALIC - Eye Exam Eye Exam: EOMI, PERRL, Scleral icterus - ENT Exam ENT Exam: Mucous Membranes Moist - Neck Exam Neck Exam: Normal Inspection - Respiratory Exam Respiratory Exam: Decreased Breath Sounds. absent: Rales, Rhonchi, Wheezes - Cardiovascular Exam Cardiovascular Exam: RRR, +S1, +S2. absent: Gallop, Rubs - GI/Abdominal Exam GI & Abdominal Exam: Distended, Soft, Tenderness, Organomegaly. absent: Firm, Guarding, Rigid, Mass Additional comments: hepatomegaly - Extremities Exam Extremities Exam: Pedal Edema Additional comments: 3+bilateral pitting edema - Neurological Exam Neurological Exam: Alert, Awake, Oriented x3 - Psychiatric Exam Psychiatric exam: Normal Affect, Normal Mood - Skin Skin Exam: Dry, Intact, Warm Additional comments: visible jaundice Assessment and Plan - Assessment and Plan (Free Text) Plan: 1. Jaundice -EKG reviewed; normal sinus rhythm, no acute ST-T wave changes -CXR reviewed -Elevated bilirubin, AST, ALKP, Ammonia, INR -Abdominal US reviewed; hepatosplenomegaly; fatty infiltration of the liver; CBD within normal limits; see full report -CT abd/pelvis pending -MRI contraindicated due to patients history of metal gastric wall clips -Continue lactulose; will titrate to 2-3 bowel movement per day -Pending: hepatitis panel, serum alcohol, HIRO, anti-SMA, Anti-Mitochondrial ab, ceruloplasmin, ferritin, transferrin -GI consulted - Dr. Turner 2. Pancreatic ca s/p whipple -CT abd/pelvis pending -CA19-9 and alpha-fetoprotein pending -Per Dr. Smith, patient's records from her oncologist at [facility] will be obtained -Heme/onc consulted - Dr. Smith 3. Anemia -Iron, Ferritin, TIBC pending -B12, folate pending -Hgb dropped to 6.9 today from 7.8 on admission, consent was obtained for 2units pRBC's and patient will be transfused today -Source of the anemia yet to be determined, will continue thorough workup 4. GI/DVT prophylaxis -Protonix/SCD's Patient discussed with attending, Dr. Salcedo <Mirza Salcedo - Last Filed: 04/19/17 08:31> Objective - Vital Signs/Intake and Output Vital Signs (last 24 hours): Temp Pulse Resp BP Pulse Ox 98.2 F 90 20 119/71 97 03/21/17 19:49 03/21/17 19:49 03/21/17 19:49 03/21/17 19:49 03/21/17 16:00 - Labs Labs: 03/21/17 06:30 03/21/17 06:30 PT 26.3 Seconds (9.9-11.8) H 03/21/17 06:30 INR 2.44 (0.93-1.08) H 03/21/17 06:30 APTT 46.9 Seconds (23.7-30.8) H 03/19/17 15:52 Attending/Attestation - Attestation I have personally seen and examined this patient.: Yes I have fully participated in the care of the patient.: Yes I have reviewed all pertinent clinical information, including history, physical exam and plan: Yes Notes (Text): 04/19/17 08:31 Medical record note made by the resident after discussion with my direction and input after the patient was personally seen and examined by me. I have reviewed the chart and agree that the record reflects my personal performance of history, physical, data review and course for the patient that I have planned.
[2017-03-20 11:31] LABS: CA 19-9 45.9 U/mL (0-37)
[2017-03-20 12:01] LABS: FOLATE 10.8 ng/mL
--- NOTE | 2017-03-20 14:56 | CT ---
PROCEDURE: CT Abdomen and Pelvis with contrast HISTORY: history of pancreatic ca. History of prior Whipple's procedure. COMPARISON: 02/28/2017 TECHNIQUE: Contrast dose: 100 mL Omnipaque 350 Radiation dose: Total exam DLP = 891 mGy-cm. This CT exam was performed using one or more of the following dose reduction techniques: Automated exposure control, adjustment of the mA and/or kV according to patient size, and/or use of iterative reconstruction technique. FINDINGS: LOWER THORAX: Unremarkable. LIVER: Diffuse hepatic steatosis as before. No interval liver lesions noted. Biliary stents in place -as before. Enlarged liver GALLBLADDER AND BILE DUCTS: Status post cholecystectomy PANCREAS: Status post Whipple procedure. The pancreatic tail appears grossly unremarkable SPLEEN: Splenic size 14 cm borderline prominent -unchanged ADRENALS: Unremarkable. No mass. KIDNEYS AND URETERS: Unremarkable. No hydronephrosis. No solid mass. VASCULATURE: Unremarkable. No aortic aneurysm. BOWEL: The previously referenced mild circumferential mural thickening of the colon is less apparent on this exam. Some of the small bowel loops appear adherent to the anterior abdominal wall probably related to adhesions. Excluding any concomitant peritoneal implants here is problematic. No interval obstruction. No interval mural thickening suggested. APPENDIX: Nonvisualized. No gross pericecal inflammatory change PERITONEUM: Interval increased ascites. No free air. LYMPH NODES: The periportal and retroperitoneal and few mesenteric georgina densities similar in appearance as well as being nonspecific. No interval suspect change here is perceived BLADDER: Unremarkable. REPRODUCTIVE: The previously referenced left ovarian cystic appearance is similar. Another consideration would be a similar-appearing loculated left ascitic pocket No interval changes perceived. An interval small right ovarian follicular 1.8 cm cyst is suggested. BONES: No acute fracture. The benign a sclerotic focus at the inferior thoracic spine/disc level is unchanged OTHER FINDINGS: Interval increased anasarca IMPRESSION: Interval increased anasarca and interval increased ascites. Other findings as above.
--- NOTE | 2017-03-20 19:19 | PN ---
DATE: 03/20/2017 GASTROINTESTINAL FOLLOWUP NOTE Seen and examined at the bedside earlier today. The patient complains of abdominal pain, but slightly better. No nausea or vomiting. She tolerated the liquid diet. No fever or chills. VITAL SIGNS: Temperature is 98.1, blood pressure 100/60, pulse 90, respirations 18, 95 on room air. LABORATORY DATA: WBC 7.4, her H and H is 6.9 and 20.3, platelets 142. Sodium is 137, K 3.9. BUN 11, creatinine is 0.7, total bilirubin is 10.6, AST 127, ALT 50, alkaline phosphatase is 99. Ammonia is 59, alpha-fetoprotein is 5.6. PHYSICAL EXAMINATION: HEENT: Sclerae is icteric. NECK: Supple. CARDIAC: S1, S2. LUNGS: With decreased breath sounds, but good air entry, no rales or wheeze. ABDOMEN: With bowel sounds, is distended, but soft with positive tenderness, no rebound, guarding, positive hepatomegaly. EXTREMITIES: Positive bilateral pitting edema. SKIN: Positive for jaundice. ASSESSMENT: This is a 46-year-old female with pancreatic cancer status post Whipple, comes with complaints of worsening lower extremity edema and abdominal girth, as well as jaundice. ? Biliary Obstruction,elevated bilirubin. The patient is status post recent gastrointestinal bleed with clipping, anemia. The patient also with elevated ammonia level. PLAN: The patient is going to get a blood transfusion. Discussed with the patient regarding request for MRI, MRCP. The patient has history of biliary stent and hemoclip clip. She is on iron supplements. On lactulose t.i.d., on Protonix, Aldactone, and Carafate. The patient's diet has been advanced to heart healthy. Trend LFTs. She is also being followed by oncology and urology. We will continue to follow. The patient was seen and case discussed with Dr. Turner. Radha Tiwaries GALLITO cc: [id number] TT: 03/20/2017 19:19:48 Confirmation # [id number] Dictation # [id number] frances OLIVAS
[2017-03-20] MEDS: Sucralfate 1 gm/10 ml Oral Susp UD PO SCH (20:58)
[2017-03-21] MEDS: Morphine 2 mg/ml ISec IVP PRN ×3 (04:37→21:35)
[2017-03-21 06:44] LABS: BASO # 0.01 K/mm3 (0.0-2.0); BASO % 0.1 % (0.0-3.0); EOS # 0.1 (0.0-0.7); GRAN # 5.41 (1.4-6.5); GRAN % 74.2 % (50.0-68.0); LYMPH # 1.1 (1.2-3.4); LYMPH % 15.6 % (22.0-35.0); MEAN CELL VOLUME 93.6 fL (80.0-105.0); MEAN CORPUSCULAR HEMOGLOBIN 32.4 pg (25.0-35.0); MEAN CORPUSCULAR HGB CONC 34.6 g/dl (31.0-37.0); MEAN PLATELET VOLUME 9.9 fl (7.0-11.0); MONO # 0.7 (0.1-0.6); MONO % 9.1 % (1.0-6.0); PLATELET COUNT 139 10^3/uL (120.0-450.0); RED CELL DISTRIBUTION WIDTH 20.9 % (11.5-14.5); WHITE BLOOD COUNT 7.3 10^3/ul (4.5-11.0)
[2017-03-21 06:55] LABS: INR 2.44 (0.93-1.08)
[2017-03-21 07:03] LABS: HEMATOCRIT 23.4 % (36.0-48.0)
[2017-03-21 07:04] LABS: ADD MANUAL DIFF? NO
[2017-03-21 07:10] LABS: ALB/GLOB RATIO 0.6 (1.1-1.8); ALKALINE PHOSPHATASE 81 U/L (38-133); ALT/SGPT 50 U/L (7-56); AST/SGOT 116 U/L (15-39); BILIRUBIN,TOTAL 13.1 mg/dL (0.2-1.3); BLOOD UREA NITROGEN 11 mg/dL (7-21); CALCIUM 7.8 mg/dL (8.4-10.5); CARBON DIOXIDE 27 mmol/L (21-33); CHLORIDE 102 mmol/L (98-107); GFR AFRICAN-AMERICAN > 60; GLUCOSE,RANDOM 82 mg/dL (70-110); POTASSIUM 3.5 mmol/L (3.6-5.0); SODIUM 137 mmol/L (132-148); TOTAL PROTEIN 6.7 g/dL (5.8-8.3)
[2017-03-21 07:28] LABS: FIBRINOGEN 70.7 mg/dL (187-400)
[2017-03-21 08:55] VITALS: RESP 20
[2017-03-21] MEDS ORDERED: Potassium Chloride 20 mEq ER Tab PO STA (09:33)
[2017-03-21] MEDS: Sucralfate 1 gm/10 ml Oral Susp UD PO SCH ×2 (09:37→17:20)
[2017-03-21] MEDS: Albumin Human 25% (25 gm/100 ml) IV SCH (09:37)
[2017-03-21] MEDS: Amylase/Lipase/Protease 5,000 U ECC PO SCH ×3 (09:38→17:20)
[2017-03-21] MEDS: Pantoprazole 40 mg EC Tab PO SCH (09:38)
[2017-03-21] MEDS ORDERED: cefTRIAXone 1 gm 1 GM/100 ML BAG IVPB SCH (10:00)
[2017-03-21] MEDS ORDERED: Phytonadione 10 mg/ml Inj (Adult) SC SCH (12:00)
--- NOTE | 2017-03-21 14:08 | CON ---
DATE: 03/21/2017 CHIEF COMPLAINT: Jaundice. HISTORY OF PRESENT ILLNESS: This is a 46-year-old female seen in her room at [facility]. The patient has a history of pancreatic cancer. She is about a year and a half status post a Whipp le resection. She presents complaining of worsening jaundice and lower extremity edema. A consul tation was requested regarding hematuria. The patient is awake, alert, answering questions. She den ies any dysuria, urinary frequency, urgency or gross hematuria. She denies any colicky type of flank pain. She does report having a recent urinary infection which she reports was treated when she was at [facility]. She is being transfused with multiple units of red blood cells for an emia and reports she is currently feeling better. PAST MEDICAL HISTORY: Significant for pancreatic cancer, anemia, hepatic encephalopathy, gastric wal l tear and asthma. PAST SURGICAL HISTORY: Whipple resection, , repair of gastric wall tear. ALLERGIES: No known drug allergies. MEDICATIONS: Currently include Aldactone, Carafate, Enulose, morphine, ____, Protonix, Rocephin, Tyl enol, and vitamin K. REVIEW OF SYSTEMS: A 12-point review of systems was obtained. Positive for weakness. Positive for lower extremity swelling. Positive for diarrhea. Denies any fevers or chills. Denies any chest trish ns or palpitations. Denies any cough or shortness of breath. Other systems are negative. PHYSICAL EXAMINATION: GENERAL: The patient is awake and alert. She is in no acute distress. She is answering questions. She is seen in her bed at [facility]. She is afebrile. VITAL SIGNS: Temp 98.4, pulse of 100. BP 118/80, respirations 20. NECK: Supple. There is no obvious adenopathy. CHEST: Reveals a normal inspiratory effort. CARDIAC: Shows positive S1, S2. There is 2+ to 3+ peripheral edema noted. ABDOMEN: Soft, somewhat distended. There is no obvious mass, but there does appear to be likely asc ites with an ascitic wave. There is no costovertebral angle tenderness. EXTREMITIES: There is no cyanosis but there is 2-3+ pitting edema noted. LABORATORY EXAMINATION: Urinalysis showed positive for protein, positive for ketones, positive for n itrites, too numerous to count RBCs, 0-2 WBCs, trace leukocyte esterase, moderate bacteria. Urine cu lture is positive for E. coli. Blood cultures showed no growth. WBC count was 7.3. Hemoglobin 6.9 yesterday, up to 8.1 this morning. GFR greater than 60. On radiologic exam, patient had a CT scan of the abdomen and pelvis from 03/19, which showed there is b iliary stents in the liver with diffuse hepatic steatosis, borderline enlarged spleen, kidneys were u nremarkable, no hydronephrosis or solid mass, bladder was unremarkable. Impression was increased susan sarca and increased ascites. IMPRESSION AND PLAN: This is a 46-year-old female with pancreatic cancer, anemia and worsening ascit es and edema. Urologically, patient has no symptoms at this time. The urine does appear infected an d the urine culture did grow E. coli. That is likely the source of her hematuria. Her kidneys appea r normal on CT scan. There is no stone or evidence of mass. Urologically, I would treat her for the urinary tract infection. Inpatient treatment will be as per oncology and medicine. If patient does well, I would plan on repeating a urine culture in a few weeks as well as a urinalysis. If patient persists to have hematuria, we can consider a cystoscopy at some point. However, given her other muc h more severe underlying medical causes, I would not actively pursue the hematuria at this time. Thank you for allowing us to participate in the care of this patient. We will follow her with you. Tone Umanzor MD cc: [id number] TT: 03/21/2017 14:07:53 Confirmation # [id number] Dictation # [id number] sn
[2017-03-21 17:28] VITALS: O2SAT 97
--- NOTE | 2017-03-21 17:46 | CP.PCM.PN ---
Subjective - Date & Time of Evaluation Date of Evaluation: 03/21/17 Time of Evaluation: 10:00 - Subjective Subjective: Seen and examined earlier today. No acute overnight events reported. No N/V, no SOB or chest pain. Does get abdominal pain. No distress. No reports of bleeding. Objective - Vital Signs/Intake and Output Vital Signs (last 24 hours): Temp Pulse Resp BP Pulse Ox 98.2 F 84 20 116/68 97 03/21/17 17:00 03/21/17 17:00 03/21/17 17:00 03/21/17 17:00 03/21/17 16:00 Intake and Output: 03/21/17 03/21/17 06:59 18:59 Intake Total 540 350 Balance 540 350 - Medications Medications: Current Medications Acetaminophen (Tylenol 325mg Tab) 650 mg PO Q6H PRN PRN Reason: Pain, Mild (1-3) Amylase (Pancrease 33266 U-5000 U-37831 U) 5,000 u PO WM [facility] Last Admin: 03/21/17 17:20 Dose: 5,000 u Ceftriaxone Sodium (Rocephin 1 Gram Ivpb) 1 gm in 100 mls @ 100 mls/hr IVPB DAILY [facility] PRN Reason: Protocol Last Admin: 03/21/17 10:00 Dose: 100 mls/hr Lactulose (Enulose) 30 gm PO TID [facility] Last Admin: 03/21/17 17:20 Dose: 30 gm Morphine Sulfate (Morphine) 1 mg IVP Q4H PRN PRN Reason: Pain, severe (8-10) Last Admin: 03/21/17 15:09 Dose: 1 mg Pantoprazole Sodium (Protonix Ec Tab) 40 mg PO DAILY [facility] Last Admin: 03/21/17 09:38 Dose: 40 mg Phytonadione (Vitamin K Inj) 5 mg SC DAILY [facility] Stop: 03/23/17 12:00 Last Admin: 03/21/17 12:05 Dose: 5 mg Spironolactone (Aldactone) 25 mg PO BID [facility] Sucralfate (Carafate Oral Susp) 1 gm PO BID [facility] Last Admin: 03/21/17 17:20 Dose: 1 gm - Labs Labs: 03/21/17 06:30 03/21/17 06:30 PT 26.3 Seconds (9.9-11.8) H 03/21/17 06:30 INR 2.44 (0.93-1.08) H 03/21/17 06:30 APTT 46.9 Seconds (23.7-30.8) H 03/19/17 15:52 - Constitutional Appears: No Acute Distress - Head Exam Head Exam: NORMOCEPHALIC - Eye Exam Eye Exam: Scleral icterus - ENT Exam ENT Exam: Mucous Membranes Moist - Neck Exam Neck Exam: Normal Inspection - Respiratory Exam Respiratory Exam: Clear to Ausculation Bilateral, NORMAL BREATHING PATTERN. absent: Respiratory Distress - Cardiovascular Exam Cardiovascular Exam: +S1, +S2 - GI/Abdominal Exam GI & Abdominal Exam: Distended, Tenderness, Normal Bowel Sounds. absent: Guarding, Rebound - Extremities Exam Extremities Exam: Pedal Edema - Neurological Exam Neurological Exam: Alert, Awake, Oriented x3 - Skin Additional comments: Jaundice Assessment and Plan - Assessment and Plan (Free Text) Assessment: ASSESSMENT: Pancreatic Cancer, s/p Whipple, biliary stent Jaundice, r/o biliary stent obstruction, increasing TB Lower extremity Edema H/O GIB, s/p clip Anemia Hepatic Encepholapathy Hematuria PLAN: Receive blood transfusion Continue Lactulose, FUu ammonia continue PPI, Carafate Diet as tolerated as per oncology, urology monitor LFT, H/H , overt GI bleed Originally plan to request for MRCP/MRI, patient has metal clip, on hold Speak to Dr. Gauthier [phone] , GI from [facility] regarding metal clip and procedure done FYI: her surgical oncologist: Dr. Barlow: [phone] Seen and discussed with Dr. Turner.
--- NOTE | 2017-03-21 18:37 | US ---
HISTORY: Leg pain and swelling. Evaluate for DVT PHYSICIAN(S): Nadir Potts MD. TECHNIQUE: Duplex sonography and color-flow Doppler with graded compression were used to evaluate the deep venous systems of both lower extremities. The exam is somewhat limited by edema. FINDINGS: The visualized deep venous systems of both lower extremities are sonographically normal and compressible. Normal wave forms and augmentation are seen. There is no sonographic evidence for deep venous thrombosis in the visualized segments of both lower extremities. IMPRESSION: No sonographic evidence for deep venous thrombosis in the visualized segments of both lower extremities.
[2017-03-21 19:50] VITALS: BP 119/71; PULSE 90; TEMP 98.2
--- NOTE | 2017-03-21 20:58 | PN ---
DATE: 03/20/2017 ADDENDUM SUBJECTIVE: This patient was seen and evaluated earlier. This is an addendum to the progress report dictated by Radha Mckeon APN. Discussed with Dr. Patel and also with the primary physician, Dr. Damon. The patient discussed with also family members. The patient did receive transfusion. CT scans reviewed. We discussed with the patient's oncologist and also the cloth winder machine operator. MRI could not be done in view of the recent clips which were placed for the GI bleeding. Thank you very much for allowing us to participate in the care of the patient. We will continue to closely follow up her care and suggest further management based on the clinical course. Jacinta Turner MD cc: [id number] TT: 03/21/2017 20:57:17 Confirmation # [id number] Dictation # [id number] katalina OLIVAS
--- NOTE | 2017-03-21 21:10 | PN ---
DATE: 03/21/2017 ADDENDUM This is an addendum to the GI progress report dictated by Radha Mckeon APN. Discussed with Dr. Patel, oncologist, patient, with the patient's family at length. I also discussed with the patient's surgeon who performed the procedure , Dr. Barlow at [facility] and also with the stock sorter, Dr. Rojas. The patient apparently had a complete resection of the tumor and no evidence of pancreatic cancer noticed by the followup evaluations by the oncologist. The patient did complete the chemotherapy. The patient had a biliary stent placed by the patient's oncologist per the surgeon at the time of the Whipple. I spoke with the stock sorter who mentioned that the patient did have bleeding in February from the anastomotic margin, on the gastric site, 2 clips were placed. As per the stock sorter, patient's liver function was normal at the time of the bleeding, when she was hospitalized at the time of bleeding. PHYSICAL EXAMINATION: GENERAL: The patient still appears jaundiced. ABDOMEN: Abdominal distention with increased ascites noticed. IMPRESSION AND PLAN: The etiology of her acute liver failure is unclear. Her MELD score was 28. The real concern is acute worsening of the hepatic dysfunction and increased INR and also total bilirubin. I discussed at length with the stock sorter who also prefers the patient to be transferred to a tertiary liver center. I spoke with the family who also wants her to be transferred to the liver center. Discussed with the hepatology fellow who accepted the patient for transfer. Thank you very much for allowing us to participate in the care of the patient. Jacinta Turner MD cc: [id number] TT: 03/21/2017 21:10:19 Confirmation # [id number] Dictation # [id number] katalina OLIVAS
--- NOTE | 2017-03-21 22:24 | CP.PCM.PN ---
<Golden Whitmore - Last Filed: 03/21/17 22:25> Subjective - Date & Time of Evaluation Date of Evaluation: 03/21/17 Time of Evaluation: 22:21 - Subjective Subjective: Medicine progress note - Golden Whitmore PGY 1 Patient seen and examined at bedside this morning. No acute overnight events or new complaints. Patient is being evaluated by GI and hematology/oncology. Discussion of potential transfer to tertiary care center pending per GI/ Hematology for further evaluation and treatment given the complexity of her case and the need for continuity of care. Otherwise, no acute events. Will continue to follow this complex patient closely. Denies chest pain, palpitations , SOB. Objective - Vital Signs/Intake and Output Vital Signs (last 24 hours): Temp Pulse Resp BP Pulse Ox 98.2 F 90 20 119/71 97 03/21/17 19:49 03/21/17 19:49 03/21/17 19:49 03/21/17 19:49 03/21/17 16:00 Intake and Output: 03/21/17 03/22/17 18:59 06:59 Intake Total 350 25 Balance 350 25 - Medications Medications: Current Medications Acetaminophen (Tylenol 325mg Tab) 650 mg PO Q6H PRN PRN Reason: Pain, Mild (1-3) Amylase (Pancrease 06630 [id number] [id number] U) 5,000 u PO WM [facility] Last Admin: 03/21/17 17:20 Dose: 5,000 u Ceftriaxone Sodium (Rocephin 1 Gram Ivpb) 1 gm in 100 mls @ 100 mls/hr IVPB DAILY TK PRN Reason: Protocol Last Admin: 03/21/17 10:00 Dose: 100 mls/hr Lactulose (Enulose) 30 gm PO TID [facility] Last Admin: 03/21/17 17:20 Dose: 30 gm Morphine Sulfate (Morphine) 1 mg IVP Q4H PRN PRN Reason: Pain, severe (8-10) Last Admin: 03/21/17 21:35 Dose: 1 mg Pantoprazole Sodium (Protonix Ec Tab) 40 mg PO DAILY [facility] Last Admin: 03/21/17 09:38 Dose: 40 mg Phytonadione (Vitamin K Inj) 5 mg SC DAILY [facility] Stop: 03/23/17 12:00 Last Admin: 03/21/17 12:05 Dose: 5 mg Spironolactone (Aldactone) 25 mg PO BID [facility] Last Admin: 03/21/17 21:35 Dose: 25 mg Sucralfate (Carafate Oral Susp) 1 gm PO BID [facility] Last Admin: 03/21/17 17:20 Dose: 1 gm - Labs Labs: 03/21/17 06:30 03/21/17 06:30 PT 26.3 Seconds (9.9-11.8) H 03/21/17 06:30 INR 2.44 (0.93-1.08) H 03/21/17 06:30 APTT 46.9 Seconds (23.7-30.8) H 03/19/17 15:52 - Constitutional Appears: Non-toxic, No Acute Distress - Head Exam Head Exam: ATRAUMATIC, NORMAL INSPECTION, NORMOCEPHALIC - Eye Exam Eye Exam: EOMI, Scleral icterus Pupil Exam: PERRL - ENT Exam ENT Exam: Mucous Membranes Moist - Respiratory Exam Respiratory Exam: Clear to Ausculation Bilateral. absent: Rales, Rhonchi, Wheezes - Cardiovascular Exam Cardiovascular Exam: RRR, +S1, +S2. absent: Gallop, Rubs - GI/Abdominal Exam GI & Abdominal Exam: Distended, Soft, Tenderness, Organomegaly. absent: Firm, Guarding, Rigid Additional comments: hepatomegaly - Neurological Exam Neurological Exam: Alert, Awake, Oriented x3 - Psychiatric Exam Psychiatric exam: Normal Affect, Normal Mood - Skin Skin Exam: Dry, Intact, Warm Additional comments: jaundice Assessment and Plan - Assessment and Plan (Free Text) Plan: 46yo female with history of pancreatic cancer s/p whipple and biliary stent placement, anemia, hepatic encephalopathy, history of GI bleed s/p surgical clip placement presents c/o yellowing of her skin, eyes and swelling of her legs that started over 4 weeks ago 1. Jaundice -EKG reviewed; normal sinus rhythm, no acute ST-T wave changes -CXR reviewed -Elevated bilirubin, AST, ALKP, Ammonia, INR -Abdominal US reviewed; hepatosplenomegaly; fatty infiltration of the liver; CBD within normal limits; see full report -CT abd/pelvis reviewed; see report -MRI contraindicated due to patients history of metal gastric wall clips -Continue lactulose; will titrate to 2-3 bowel movement per day -GI consulted - Dr. Turner 2. Pancreatic ca s/p whipple -CT abd/pelvis reviewed; see report -CA19-9 elevated -Per GI, case was discussed with her gastroenterology at [facility] (Dr. Gauthier); Patient was accepted for transfer to a tertiary liver center for further evaluation of the etiology of her acute liver failure -Heme/onc consulted - Dr. Patel 3. Anemia -Hgb dropped to 6.9 from 7.8 on admission previously, consent was obtained for transfusion and she has as of now received a total of 4units of pRBC's -Will continue to follow the H/H closely 4. GI/DVT prophylaxis -Protonix/SCD's Patient discussed with attending, Dr. Damon <Nagi Damon - Last Filed: 03/22/17 09:03> Objective - Vital Signs/Intake and Output Vital Signs (last 24 hours): Temp Pulse Resp BP Pulse Ox 98.2 F 90 20 119/71 97 03/21/17 19:49 03/21/17 19:49 03/21/17 19:49 03/21/17 19:49 03/21/17 16:00 Intake and Output: 03/22/17 03/22/17 06:59 18:59 Intake Total 25 Balance 25 - Labs Labs: 03/21/17 06:30 03/21/17 06:30 PT 26.3 Seconds (9.9-11.8) H 03/21/17 06:30 INR 2.44 (0.93-1.08) H 03/21/17 06:30 APTT 46.9 Seconds (23.7-30.8) H 03/19/17 15:52 Attending/Attestation - Attestation I have personally seen and examined this patient.: Yes I have fully participated in the care of the patient.: Yes I have reviewed all pertinent clinical information, including history, physical exam and plan: Yes Notes (Text): 03/22/17 09:03 Medical record note made by the resident after discussion with my direction and input after the patient was personally seen and examined by me. I have reviewed the chart and agree that the record accurately reflects by personal performance of the history, physical exam, data review, and medical decision-making, in the course for the patient. I have also personally directed the plan of care.
--- NOTE | 2017-03-21 22:46 | CON ---
DATE: 03/21/[address] aPtel. CHIEF COMPLAINT: Abdominal pain, history of pancreatic cancer. HISTORY OF PRESENT ILLNESS: The patient is a 46-year-old female seen sitting up in a chair with re russ at the bedside reported to have a past history significant for pancreatic cancer status post Whipp le procedure by Dr. Hilliard at the [facility] with patient receiving adjuvant chemotherapy with no r adiation at that time. Also noted to have a gastric wall tear, status post repair. She is now admit irvin as per her primary medical doctor for evaluation of pedal edema, abdominal pain on the right, diamante ng with icteric changes to her sclerae and skin. [facility] and is now [facility] to [facility] with a significant anemic indices, hemoglobin 2 days prior was 7.8; yesterday's was 6.9 after transfusion of 2 units of packed red blood cells. Hemoglobin earlier today was 8.1 with an ad ditional 2 units to be transfused as per Dr. Patel's recommendations. With this, she is in no acut e distress, reporting that she is tolerating her diet well, with the patient otherwise awake and aler t at this visit. PAST MEDICAL HISTORY: Significant for asthma, status post Whipple procedure for pancreatic cancer in 2015, earlier this year gastric wall care status post repair this with the patient otherwise denying any other significant history. ALLERGIES: No known allergies. MEDICATIONS: At this point include IV albumin, which has been discontinued after 25 grams given on 2 occasions, with Lasix afterwards. Spironolactone 12.5 mg, which was put on hold. We will restart i t. Carafate, lactulose, ferrous sulfate which was discontinued as the patient's percent saturation o f iron is significantly elevated, Lasix 40 mg daily which was also put on hold, morphine as needed fo r pain, pancrease with meals, Protonix, Rocephin 1 gram was given 1 time with IV 100 mL an hour of no rmal saline which was also discontinued as per Dr. Patel's recommendation. At this point, she is a lso getting vitamin K 5 mg subQ daily for 3 days as her INR is elevated despite being not on anticoag ulation. FAMILY HISTORY AND SOCIAL HISTORY: Her daughter works for Dr. Patel's office as a nurse receptionist. P ositive history of smoking in the past. Denies alcohol use. Otherwise, noncontributory. REVIEW OF SYSTEMS: Essentially negative to questioning except as above. PHYSICAL EXAMINATION: VITAL SIGNS: Temperature 98.2, pulse 90, respirations 20, blood pressure 119/71 with a pulse ox of 9 7%. HEENT: The patient has icteric sclerae. NECK: Supple. HEART: Regular rate. LUNGS: Clear. ABDOMEN: Minimal tenderness to gentle palpation in the right upper quadrant with minimal distention. Positive ascitic fluid wave. EXTREMITIES: +1 edema of the feet bilaterally. NEUROLOGIC: Awake and alert. SKIN: Icteric. No ecchymotic changes appreciated. LABORATORY DATA: The patient's labs were done, white blood cell count of 7.3, hemoglobin 8.1 this mo rning it was 6.9 yesterday with 2 units of packed red blood cells being given. On admission she had a hemoglobin of 7.8, which was 2 days prior. Her hematocrit is 23.4, platelet count 139,000. A hapt oglobin was done, it was less than 15. Her chem metabolic panel showing a potassium of 3.5 earlier t leesa with a T-bili of 13 rising from the original T-bili of 8.7 on admission 2 days prior. AST is 1 16. Her CA 19-9 is 45.9, alpha fetoprotein of 5.6. Her iron percent saturation is at 62 with a portillo sferrin saturation of 83. Urinalysis showed positive nitrite, large amount of bilirubin. Her HIRO sc reen was negative, antimitochondrial antibody was negative. Hepatitis A, B, C were negative. The anurag perez's other testing included a chest x-ray from 03/19/2017. The patient's other testing included a chest x-ray from 03/19/2017 showing no active disease. She had abdominal ultrasound done on 03/19, it was read as hepatosplenomegaly, fatty infiltration of liver, asc ites, cholecystectomy, no ductal dilatation, biliary stent seen on CT 02/28/2017 not definitely identi fied, nonvisualization of the pancreas. CT scan of the abdomen and pelvis was done on 03/19/2017. It was read as interval increase anasarca, interval increased ascites with mural thickening of the colon , status post Whipple procedure. She had a Doppler ultrasound of lower extremities which was read as negative. The patient's other testing included an INR which on admission 03/19 was 2.04, today's valu e is 2.44 with fibrinogen value of 70.7, fibrous blood products within normal range. ASSESSMENT: Symptomatic anemia status post transfusion, abnormal clotting factors vitamin K given, a bdominal pain, jaundice, history of pancreatic cancer status post Whipple procedure with stenting/obs truction, pedal edema, deep venous thrombosis ruled out, hepatic encephalopathy improved, hematuria h istory. PLAN: After conversation with Dr. Patel, we will continue present medical regimen with the consult with Dr. Turner appreciated. We will discontinue her iron, discontinue IV fluids, give vitamin K 5 mg subQ daily for 3 days, monitor her labs including INR. Continue lactulose, continue spironolact one, Carafate, morphine for pain, Protonix for history of gastric tear, with transfusion as indicated for her anemic indices. Oxygen 2 liters nasal cannula. After conversation with Dr. Patel, we alexandr l also ask for a urine hemosiderin, factor V levels, and antithrombin time. We will also request grabiel luation, possibly to transfer as per Dr. Tunrer to Dr. Larkin at [facility] the prognosis for this patient guarded. Floyd Dallas MD cc: [id number] TT: 03/21/2017 22:45:59 Confirmation # [id number] Dictation # [id number] jn
--- NOTE | 2017-03-21 22:57 | CON ---
DATE: 03/21/2017 This patient was seen and evaluated earlier. HISTORY OF PRESENT ILLNESS: This 46-year-old patient with a history of pancreatic cancer status post Whipple's resection done in 05/2016 at [facility]. h/o sp chemotherapy done. The patient has been followed closely there, had an episode of GI bleeding in February. She was found to have an anastomotic ulcer bleeding, for which clipping was done. The patient was seen in [facility] Emergency Room on 02/28 with dark stool. The patient's hemoglobin was stable. Advised the patient to follow up with a machinist set up who had done the procedure a few days ago at the request of the patient. The patient subsequently was hospitalized in [facility] with hepatic encephalopathy and jaundice. The patient was recently discharged from [facility], presented to the Emergency Room in [place] on 03/19/2017 after being found jaundiced and very weak at doctor's office. No question of vomiting blood. No history of any bright red blood per rectum or melena this admission. No fever. Complains of band-like pain across the upper abdomen. PAST MEDICAL HISTORY: Significant as above, history of asthma. SURGICAL HISTORY: Significant as above. ALLERGIES: No known drug allergy. FAMILY HISTORY: Positive for diabetes, coronary artery disease. SOCIAL HISTORY: Positive for smoking in the past. No alcohol use. REVIEW OF SYSTEMS: Positive as above, patient has no chest pain. Complains of abdominal pain. No fever. Complains of weakness. Other systems reviewed. PHYSICAL EXAMINATION: GENERAL: The patient is lying on the bed, not in acute distress. VITAL SIGNS: She had a temperature is 98.1, blood pressure is 92/50, pulse 89, respirations 18, O2 saturation 96. HEENT: Atraumatic. The patient is jaundiced. NECK: Supple. HEART: S1, S2 heard. LUNGS: Bilateral air entry present. ABDOMEN: Softly distended, mild tenderness present at the epigastric area. Surgical scar noted. EXTREMITIES: Mild edema present. LABORATORY DATA: Total bilirubin 8.7, direct bilirubin 6.0. AST 131, AST 51, alkaline phosphatase 141, amylase less than 30. Hemoglobin is 7.8, hematocrit 22.8, WBC 7.5, platelets 177. The patient's INR 2.04. CT scan of the abdomen and pelvis done was reviewed, suggestion of some small bowel loops in the anterior abdominal wall, ascites, anasarca, had a biliary stent noticed. Also noticed to have a small ____ densities. IMPRESSION: This is a 46-year-old patient with a pancreatic cancer status post Whipple's resection, admitted with elevated liver function tests, coagulopathy, rule out biliary obstruction. The patient has a history of hepatic encephalopathy, liver failure, etiology is unclear, anemia, history of gastrointestinal bleeding before, ascites, rule out recurrence. RECOMMENDATIONS: 1. Followup of the hemoglobin, hematocrit and transfuse. 2. Followup of the LFTs. 3. Will discuss with the patient's machinist set up at [facility] and also oncologist and the surgeon. We will continue to closely follow up her care and suggest further management based on the clinical course. Jacinta Turner MD cc: [id number] TT: 03/21/2017 22:56:17 Confirmation # [id number] Dictation # [id number] jn DEISY
--- NOTE | 2017-03-22 02:51 | PN ---
DATE: 03/21/2017 REASON FOR CONSULTATION: The patient's family has requested a second opinion to see the patient. Th e patient had already been seen by my associate earlier on. HISTORY OF PRESENT ILLNESS: This is a 46-year-old female with history of pancreatic cancer status po st Whipple procedure done on 06/06/2016 at [facility], [place], received postoperative chemotherapy with X eloda and Abraxane, and was being followed up closely there. Had 1 episode of GI bleeding in 02/2017 . She was found to have anastomotic ulcer bleeding, for which clipping was done. The patient was se en in [facility] Emergency Room on 02/28 with dark stools. The patient's hemoglobin was stable . The patient was advised to see her electric spot welder, who had done the procedure at [facility] a few days ago, at the request of the patient. The patient subsequently was admitted to [facility] with hepatic encephalopathy and jaundice. The patient was recently discharged from [facility] and presented to the ER of [facility] on 03/19/2017, after be ing found jaundice and very weak in the doctor's office. No history of vomiting. No history of any bright red blood per rectum or melena, no fever, complains of a band-like pain across the upper abdom en. Workup in the hospital shows the patient to have obstructive jaundice. In addition, the patient has anasarca with hypoalbuminemia. The patient also was noted a low fibrinogen and has an elevated INR, all suggestive of significant liver dysfunction with the patient going into hepatic encephalopat hy. ASSESSMENT NOTES AND PLAN: I had a long discussion with the patient's treating oncologist, Dr. Hilliard, at [facility], [place]. I left a message for the surgeon, Dr. Copeland, also at [facility], [place], to call me; I have not received his call yet, but Dr. Turner, who I spoke with, had spoken to the surgeon as won brooks, and who felt that the reasons for the rising bilirubin could be in the hepatic failure was not p robably related to the surgery and could be something else. I instructed Dr. Turner, after talking to the family; specifically the daughter, that in view of the worsening liver dysfunction, it could be most prudent for the patient to be seen by one of the liver specialists at [facility] so that they could further analyze the situation and try to help this young woman. It does not appear to be secondary to metastatic disease on the differential diagnosis with the patient developin g a -like syndrome, which can also progressively cause hepatic dysfunction. The patient , and this may have to also be addressed, as the anatomy could have been complicated after the Whipple procedure. After discussing with the patient's daughter, I advised Dr. Turner to proceed and go ah ead and see if we can get the patient to a liver center for now, so that we can address all these iss ues at the same time. Danilo Patel MD cc: [id number] TT: 03/22/2017 02:50:40 Confirmation # [id number] Dictation # [id number]
--- NOTE | 2017-03-22 06:52 | CP.PCM.DIS ---
<Golden Whitmore - Last Filed: 03/23/17 06:59> Provider - Provider Date of Admission: 03/19/17 16:40 Attending physician: Mirza Salcedo MD Primary care physician: Nagi Damon MD Consults: Hematology/Oncology - Dr. Patel Gastroenterology - Dr. Turner Time Spent in preparation of Discharge (in minutes): 30 Hospital Course - Lab Results Lab Results: Most Recent Lab Values WBC 7.3 10^3/ul (4.5-11.0) 03/21/17 06:30 RBC 2.50 10^6/uL (3.5-6.1) L 03/21/17 06:30 Hgb 8.1 gm/dL (12.0-16.0) L 03/21/17 06:30 Hct 23.4 % (36.0-48.0) L 03/21/17 06:30 MCV 93.6 fL (80.0-105.0) 03/21/17 06:30 MCH 32.4 pg (25.0-35.0) 03/21/17 06:30 MCHC 34.6 g/dl (31.0-37.0) 03/21/17 06:30 RDW 20.9 % (11.5-14.5) H 03/21/17 06:30 Plt Count 139 10^3/uL (120.0-450.0) 03/21/17 06:30 MPV 9.9 fl (7.0-11.0) 03/21/17 06:30 Gran % 74.2 % (50.0-68.0) H 03/21/17 06:30 Lymph % (Auto) 15.6 % (22.0-35.0) L 03/21/17 06:30 Casey % (Auto) 9.1 % (1.0-6.0) H 03/21/17 06:30 Eos % (Auto) 1.0 % (1.5-5.0) L 03/21/17 06:30 Baso % (Auto) 0.1 % (0.0-3.0) 03/21/17 06:30 Gran # 5.41 (1.4-6.5) 03/21/17 06:30 Lymph # 1.1 (1.2-3.4) L 03/21/17 06:30 Casey # 0.7 (0.1-0.6) H 03/21/17 06:30 Eos # 0.1 (0.0-0.7) 03/21/17 06:30 Baso # 0.01 K/mm3 (0.0-2.0) 03/21/17 06:30 Retic Count 2.43 % (0.5-1.5) H 03/19/17 15:58 Haptoglobin <15 mg/dL (43-212) L 03/20/17 06:30 PT 26.3 Seconds (9.9-11.8) H 03/21/17 06:30 INR 2.44 (0.93-1.08) H 03/21/17 06:30 APTT 46.9 Seconds (23.7-30.8) H 03/19/17 15:52 Fibrinogen 70.7 mg/dL (187-400) L* 03/21/17 06:30 Fibrin Degrad Products >10 <40 ug/ml (< 10 ug/mL) 03/21/17 06:30 Sodium 137 mmol/L (132-148) 03/21/17 06:30 Potassium 3.5 mmol/L (3.6-5.0) L 03/21/17 06:30 Chloride 102 mmol/L (98-107) 03/21/17 06:30 Carbon Dioxide 27 mmol/L (21-33) 03/21/17 06:30 Anion Gap 12 (10-20) 03/21/17 06:30 BUN 11 mg/dL (7-21) 03/21/17 06:30 Creatinine 0.7 mg/dL (0.5-1.4) 03/21/17 06:30 Est GFR ( Amer) > 60 03/21/17 06:30 Est GFR (Non-Af Amer) > 60 03/21/17 06:30 Random Glucose 82 mg/dL (70-110) 03/21/17 06:30 Calcium 7.8 mg/dL (8.4-10.5) L 03/21/17 06:30 Iron 100 ug/dL (45-180) 03/19/17 15:58 TIBC 161 ug/dL (265-497) L 03/19/17 15:58 % Saturation 62 % (20-55) H 03/19/17 15:58 Transferrin 83.33 mg/dL (206-381) L 03/19/17 15:58 Ferritin 41.7 ng/mL 03/20/17 06:00 Total Bilirubin 13.1 mg/dL (0.2-1.3) H 03/21/17 06:30 Direct Bilirubin 6.0 mg/dL (0.0-0.4) H 03/19/17 15:52 AST 116 U/L (15-39) H 03/21/17 06:30 ALT 50 U/L (7-56) 03/21/17 06:30 Alkaline Phosphatase 81 U/L (38-133) 03/21/17 06:30 Ammonia 59 umol/L (9-33) H 03/20/17 06:00 Lactate Dehydrogenase 411 U/L (333-699) 03/20/17 06:00 Total Protein 6.7 g/dL (5.8-8.3) 03/21/17 06:30 Albumin 2.4 g/dL (3.0-4.8) L 03/21/17 06:30 Globulin 4.3 gm/dL 03/21/17 06:30 Albumin/Globulin Ratio 0.6 (1.1-1.8) L 03/21/17 06:30 Amylase < 30 U/L (35-125) L 03/19/17 15:52 Lipase < 10 U/L (23-300) L 03/19/17 15:52 Alpha Fetoprotein 5.6 ng/mL (0.0-7.5) 03/20/17 06:30 CA 19-9 Antigen 45.9 U/mL (0-37) H 03/20/17 06:00 Vitamin B12 925 pg/mL (239-931) 03/20/17 06:00 Folate 10.8 ng/mL 03/20/17 06:00 Urine Color Dark yellow (YELLOW) 03/19/17 16:10 Urine Appearance Sl cloudy (CLEAR) 03/19/17 16:10 Urine pH 6.0 (4.7-8.0) 03/19/17 16:10 Ur Specific [place] 1.025 (1.005-1.035) 03/19/17 16:10 Urine Protein 30 mg/dL (<30 mg/dL) H 03/19/17 16:10 Urine Glucose (UA) Negative mg/dL (NEGATIVE) 03/19/17 16:10 Urine Ketones 15 mg/dL (NEGATIVE) H 03/19/17 16:10 Urine Blood Negative (NEGATIVE) 03/19/17 16:10 Urine Nitrate Positive (NEGATIVE) H 03/19/17 16:10 Urine Bilirubin Large (NEGATIVE) H 03/19/17 16:10 Urine Urobilinogen 1.0 E.U./dL (<1 E.U./dL) H 03/19/17 16:10 Ur Leukocyte Esterase Trace Jordana/uL (NEGATIVE) H 03/19/17 16:10 Urine RBC Tntc /hpf (0-2) 03/19/17 16:10 Urine WBC 0 - 2 /hpf (0-6) 03/19/17 16:10 Ur Epithelial Cells 1 - 3 /hpf (0-5) 03/19/17 16:10 Urine Bacteria Mod (NEG) 03/19/17 16:10 Alcohol, Quantitative < 10 mg/dL (0-10) 03/19/17 15:58 HIRO Screen Negative (Negative) 03/20/17 06:00 HIRO Titer TEST NOT PERFORMED 03/20/17 06:00 HIRO Titer 2 TEST NOT PERFORMED 03/20/17 06:00 HIRO Pattern TEST NOT PERFORMED 03/20/17 06:00 HIRO Pattern 2 TEST NOT PERFORMED 03/20/17 06:00 Anti-Mitochondrial Ab Negative (Negative) 03/20/17 06:00 Anti-Smooth Muscle Ab Negative (Negative) 03/20/17 06:00 Hepatitis A IgM Ab Negative (NEGATIVE) 03/19/17 15:58 Hep Bs Antigen Negative (NEGATIVE) 03/19/17 15:58 Hep B Core IgM Ab Negative (NEGATIVE) 03/19/17 15:58 Hepatitis C Antibody Negative (NEGATIVE) 03/19/17 15:58 Blood Type O POSITIVE 03/20/17 07:38 Antibody Screen Negative 03/20/17 07:38 Crossmatch See Detail 03/20/17 07:38 BBK History Checked Patient has bt 03/20/17 07:38 - Hospital Course Hospital Course: Patient is a 46yo female with past medical history of Pancreatic Ca s/p whipple , gastric wall tear s/p repair and asthma that presents c/o yellowing of her skin and eyes associated with pruritis. Patient reports that 4 weeks prior she began to notice swelling of her legs. She was admitted to [facility] ([facility] for abdominal pain and reportedly had a "slight tear in the lining of my stomach." She reports that this was surgically repaired and she was subsequently discharged home. Patient reported that last Saturday she was found to be confused and altered by her family and was taken to [facility] where she was treated for hepatic encephalopathy. She was subsequently discharged on lactulose and instructed to follow up with her PMD, Dr. Damon. On day of admission, patient presented to [facility] upon recommendation of her PMD for further workup of her jaundice and worsening lower extremity edema. EKG reviewed and revealed normal sinus rhythm, no acute ST-T wave changes. CXR was negative for active disease. Abdominal US revealed hepatosplenomegaly with fatty infiltration of the liver, CBD within normal limits(see full report). CT abd/pelvis with IV contrast revealed diffuse hepatic steatosis, biliary stents in place, pancreatic tail appeared grossly unremarkable; impression was interval increased anasarca and interval increased ascites. MRI was contraindicated due to patients history of metal gastric wall clips. Lactulose was restarted and titrated to 2-3 bowel movements per day. GI and hematology/oncology were consulted. Patient required a total of 4 units of pRBC's due to downtrending H/H with a robert of 6.9. She had a theurapeutic INR of 2.44 despite not being on anticoagulation. Her MELD score on admission was 28. GI discussed her case with her internet consultant at [facility] ([facility] (Dr. Gauthier) and it was agreed upon that the patient should be transferred to a tertiary liver center for further evaluation of her acute liver failure. The plan for transfer was discussed with the patient and she agreed to be transferred to a tertiary liver center for further workup/treatment. She was subsequently successfully transferred. Discharge Exam - Head Exam Head Exam: ATRAUMATIC, NORMAL INSPECTION, NORMOCEPHALIC - Eye Exam Eye Exam: EOMI, PERRL, Scleral icterus - ENT Exam ENT Exam: Mucous Membranes Moist - Neck Exam Neck exam: Normal Inspection - Respiratory Exam Respiratory Exam: Clear to PA & Lateral. absent: Rales, Rhonchi, Wheezes - Cardiovascular Exam Cardiovascular Exam: RRR, +S1, +S2. absent: Gallop, JVD, Rubs - GI/Abdominal Exam GI & Abdominal Exam: Organomegaly, Soft, Tenderness. absent: Firm, Guarding, Rebound Additional comments: hepatomegaly - Extremities Exam Extremities exam: pedal edema Additional comments: 2-3+ pedal edema - Neurological Exam Neurological exam: Alert, Oriented x3 - Psychiatric Exam Psychiatric exam: Normal Affect, Normal Mood - Skin Skin Exam: Dry, Intact, Warm Additional comments: jaundice Discharge Plan - Follow Up Plan Condition: FAIR Disposition: Trans to Other Acute Care Hosp Referrals: Nagi Damon MD [Primary Care Provider] - <Nagi Damon - Last Filed: 03/29/17 09:16> Provider - Provider Date of Admission: 03/19/17 16:40 Attending physician: Mirza Salcedo MD Primary care physician: Nagi Damon MD Hospital Course - Lab Results Lab Results: Most Recent Lab Values WBC 7.3 10^3/ul (4.5-11.0) 03/21/17 06:30 RBC 2.50 10^6/uL (3.5-6.1) L 03/21/17 06:30 Hgb 8.1 gm/dL (12.0-16.0) L 03/21/17 06:30 Hct 23.4 % (36.0-48.0) L 03/21/17 06:30 MCV 93.6 fL (80.0-105.0) 03/21/17 06:30 MCH 32.4 pg (25.0-35.0) 03/21/17 06:30 MCHC 34.6 g/dl (31.0-37.0) 03/21/17 06:30 RDW 20.9 % (11.5-14.5) H 03/21/17 06:30 Plt Count 139 10^3/uL (120.0-450.0) 03/21/17 06:30 MPV 9.9 fl (7.0-11.0) 03/21/17 06:30 Gran % 74.2 % (50.0-68.0) H 03/21/17 06:30 Lymph % (Auto) 15.6 % (22.0-35.0) L 03/21/17 06:30 Casey % (Auto) 9.1 % (1.0-6.0) H 03/21/17 06:30 Eos % (Auto) 1.0 % (1.5-5.0) L 03/21/17 06:30 Baso % (Auto) 0.1 % (0.0-3.0) 03/21/17 06:30 Gran # 5.41 (1.4-6.5) 03/21/17 06:30 Lymph # 1.1 (1.2-3.4) L 03/21/17 06:30 Casey # 0.7 (0.1-0.6) H 03/21/17 06:30 Eos # 0.1 (0.0-0.7) 03/21/17 06:30 Baso # 0.01 K/mm3 (0.0-2.0) 03/21/17 06:30 Retic Count 2.43 % (0.5-1.5) H 03/19/17 15:58 Haptoglobin <15 mg/dL (43-212) L 03/20/17 06:30 PT 26.3 Seconds (9.9-11.8) H 03/21/17 06:30 INR 2.44 (0.93-1.08) H 03/21/17 06:30 APTT 46.9 Seconds (23.7-30.8) H 03/19/17 15:52 Fibrinogen 70.7 mg/dL (187-400) L* 03/21/17 06:30 Fibrin Degrad Products >10 <40 ug/ml (< 10 ug/mL) 03/21/17 06:30 Sodium 137 mmol/L (132-148) 03/21/17 06:30 Potassium 3.5 mmol/L (3.6-5.0) L 03/21/17 06:30 Chloride 102 mmol/L (98-107) 03/21/17 06:30 Carbon Dioxide 27 mmol/L (21-33) 03/21/17 06:30 Anion Gap 12 (10-20) 03/21/17 06:30 BUN 11 mg/dL (7-21) 03/21/17 06:30 Creatinine 0.7 mg/dL (0.5-1.4) 03/21/17 06:30 Est GFR ( Amer) > 60 03/21/17 06:30 Est GFR (Non-Af Amer) > 60 03/21/17 06:30 Random Glucose 82 mg/dL (70-110) 03/21/17 06:30 Calcium 7.8 mg/dL (8.4-10.5) L 03/21/17 06:30 Iron 100 ug/dL (45-180) 03/19/17 15:58 TIBC 161 ug/dL (265-497) L 03/19/17 15:58 % Saturation 62 % (20-55) H 03/19/17 15:58 Transferrin 83.33 mg/dL (206-381) L 03/19/17 15:58 Ferritin 41.7 ng/mL 03/20/17 06:00 Total Bilirubin 13.1 mg/dL (0.2-1.3) H 03/21/17 06:30 Direct Bilirubin 6.0 mg/dL (0.0-0.4) H 03/19/17 15:52 AST 116 U/L (15-39) H 03/21/17 06:30 ALT 50 U/L (7-56) 03/21/17 06:30 Alkaline Phosphatase 81 U/L (38-133) 03/21/17 06:30 Ammonia 59 umol/L (9-33) H 03/20/17 06:00 Lactate Dehydrogenase 411 U/L (333-699) 03/20/17 06:00 Total Protein 6.7 g/dL (5.8-8.3) 03/21/17 06:30 Albumin 2.4 g/dL (3.0-4.8) L 03/21/17 06:30 Globulin 4.3 gm/dL 03/21/17 06:30 Albumin/Globulin Ratio 0.6 (1.1-1.8) L 03/21/17 06:30 Ceruloplasmin 9 mg/dL (18-53) L 03/20/17 06:00 Amylase < 30 U/L (35-125) L 03/19/17 15:52 Lipase < 10 U/L (23-300) L 03/19/17 15:52 Alpha Fetoprotein 5.6 ng/mL (0.0-7.5) 03/20/17 06:30 CA 19-9 Antigen 45.9 U/mL (0-37) H 03/20/17 06:00 Vitamin B12 925 pg/mL (239-931) 03/20/17 06:00 Folate 10.8 ng/mL 03/20/17 06:00 Urine Color Dark yellow (YELLOW) 03/19/17 16:10 Urine Appearance Sl cloudy (CLEAR) 03/19/17 16:10 Urine pH 6.0 (4.7-8.0) 03/19/17 16:10 Ur Specific [place] 1.025 (1.005-1.035) 03/19/17 16:10 Urine Protein 30 mg/dL (<30 mg/dL) H 03/19/17 16:10 Urine Glucose (UA) Negative mg/dL (NEGATIVE) 03/19/17 16:10 Urine Ketones 15 mg/dL (NEGATIVE) H 03/19/17 16:10 Urine Blood Negative (NEGATIVE) 03/19/17 16:10 Urine Nitrate Positive (NEGATIVE) H 03/19/17 16:10 Urine Bilirubin Large (NEGATIVE) H 03/19/17 16:10 Urine Urobilinogen 1.0 E.U./dL (<1 E.U./dL) H 03/19/17 16:10 Ur Leukocyte Esterase Trace Jordana/uL (NEGATIVE) H 03/19/17 16:10 Urine RBC Tntc /hpf (0-2) 03/19/17 16:10 Urine WBC 0 - 2 /hpf (0-6) 03/19/17 16:10 Ur Epithelial Cells 1 - 3 /hpf (0-5) 03/19/17 16:10 Urine Bacteria Mod (NEG) 03/19/17 16:10 Alcohol, Quantitative < 10 mg/dL (0-10) 03/19/17 15:58 HIRO Screen Negative (Negative) 03/20/17 06:00 HIRO Titer TEST NOT PERFORMED 03/20/17 06:00 HIRO Titer 2 TEST NOT PERFORMED 03/20/17 06:00 HIRO Pattern TEST NOT PERFORMED 03/20/17 06:00 HIRO Pattern 2 TEST NOT PERFORMED 03/20/17 06:00 Anti-Mitochondrial Ab Negative (Negative) 03/20/17 06:00 Anti-Smooth Muscle Ab Negative (Negative) 03/20/17 06:00 Hepatitis A IgM Ab Negative (NEGATIVE) 03/19/17 15:58 Hep Bs Antigen Negative (NEGATIVE) 03/19/17 15:58 Hep B Core IgM Ab Negative (NEGATIVE) 03/19/17 15:58 Hepatitis C Antibody Negative (NEGATIVE) 03/19/17 15:58 Blood Type O POSITIVE 03/20/17 07:38 Antibody Screen Negative 03/20/17 07:38 Crossmatch See Detail 03/20/17 07:38 BBK History Checked Patient has bt 03/20/17 07:38 Attending/Attestation - Attestation I have personally seen and examined this patient.: Yes I have fully participated in the care of the patient.: Yes I have reviewed all pertinent clinical information, including history, physical exam and plan: Yes Notes (Text): 03/29/17 09:16 Medical record note made by the resident after discussion with my direction and input after the patient was personally seen and examined by me. I have reviewed the chart and agree that the record accurately reflects by personal performance of the history, physical exam, data review, and medical decision-making, in the course for the patient. I have also personally directed the plan of care.
== END 2017-03-21 22:38 | disposition short-term general hospital (02) | DRG 445 ==
LOC: ED 14:48 → ERH 16:40 → 3RSO 19:59
PROVIDERS: ADMIT Internal Medicine; ATTEND Internal Medicine
PROC: 30233N1 Transfusion of Nonautologous Red Blood Cells into Peripheral Vein, Percutaneous Approach (ICD-10-PCS; principal; 2017-03-20)
DX: K83.1 Obstruction of bile duct (principal); N39.0 Urinary tract infection, site not specified; R18.8 Other ascites; K76.0 Fatty (change of) liver, not elsewhere classified; K72.90 Hepatic failure, unspecified without coma; E88.09 Other disorders of plasma-protein metabolism, not elsewhere classified; R16.0 Hepatomegaly, not elsewhere classified; R16.1 Splenomegaly, not elsewhere classified; Z85.07 Personal history of malignant neoplasm of pancreas; J45.909 Unspecified asthma, uncomplicated; D64.9 Anemia, unspecified; R31.9 Hematuria, unspecified; Z82.49 Family history of ischemic heart disease and other diseases of the circulatory system; Z83.3 Family history of diabetes mellitus; Z87.891 Personal history of nicotine dependence; Z90.411 Acquired partial absence of pancreas; Z90.49 Acquired absence of other specified parts of digestive tract; R00.0 Tachycardia, unspecified; R40.2412 Glasgow coma scale score 13-15, at arrival to emergency department; B96.20 Unspecified Escherichia coli [E. coli] as the cause of diseases classified elsewhere; Z92.21 Personal history of antineoplastic chemotherapy

== ENCOUNTER 2017-04-02 16:54 | Inpatient (IN) | payer BC ==
[2017-04-02 17:24] VITALS: BMI 26.6
[2017-04-02] MEDS ORDERED: Sodium Chloride 0.9% 1,000 ML IV STA (18:39)
[2017-04-02] MEDS ORDERED: Piperacill/Tazo 4.5gm in NS 4.5 GM/100 ML BAG IVPB STA (18:40)
[2017-04-02 19:47] LABS: ADD MANUAL DIFF? NO
[2017-04-02 19:54] LABS: BASO # 0.01 K/mm3 (0.0-2.0); BASO % 0.1 % (0.0-3.0); EOS % 0.1 % (1.5-5.0); GRAN # 11.94 (1.4-6.5); GRAN % 86.9 % (50.0-68.0); HEMATOCRIT 25.4 % (36.0-48.0); LYMPH # 0.9 (1.2-3.4); LYMPH % 6.3 % (22.0-35.0); MEAN CELL VOLUME 100.4 fL (80.0-105.0); MEAN CORPUSCULAR HEMOGLOBIN 33.6 pg (25.0-35.0); MEAN CORPUSCULAR HGB CONC 33.5 g/dl (31.0-37.0); MEAN PLATELET VOLUME 10.5 fl (7.0-11.0); MONO # 0.9 (0.1-0.6); MONO % 6.6 % (1.0-6.0); PLATELET COUNT 132 10^3/uL (120.0-450.0); RED CELL DISTRIBUTION WIDTH 21.7 % (11.5-14.5); WHITE BLOOD COUNT 13.7 10^3/ul (4.5-11.0)
[2017-04-02 19:58] LABS: ALB/GLOB RATIO 0.5 (1.1-1.8); ALKALINE PHOSPHATASE 93 U/L (38-133); ALT/SGPT 48 U/L (7-56); AST/SGOT 116 U/L (15-39); BILIRUBIN,TOTAL 17.5 mg/dL (0.2-1.3); BLOOD UREA NITROGEN 8 mg/dL (7-21); CALCIUM 8.8 mg/dL (8.4-10.5); CARBON DIOXIDE 35 mmol/L (21-33); CHLORIDE 94 mmol/L (98-107); GFR AFRICAN-AMERICAN > 60; GLUCOSE,RANDOM 84 mg/dL (70-110); POTASSIUM 3.9 mmol/L (3.6-5.0); SODIUM 137 mmol/L (132-148); TOTAL PROTEIN 7.7 g/dL (5.8-8.3)
[2017-04-02 19:59] LABS: LIPASE < 10 U/L (23-300)
[2017-04-02 20:02] LABS: INR 1.95 (0.93-1.08); PARTIAL THROMBOPLASTIN TIME 41.8 Seconds (23.7-30.8)
[2017-04-02] MEDS ORDERED: Lactulose 10 gm/15 ml (Rectal Use) PR ONE (20:29)
--- NOTE | 2017-04-02 20:48 | ED PDOC ---
Arrival/HPI - General Chief Complaint: Weakness/Neurological Deficit Time Seen by Provider: 04/02/17 17:58 EM Caveat: Altered Mental Status, Uncooperative - History of Present Illness Narrative History of Present Illness (Text): 04/02/17 20:44 46-year-old female with a history of pancreatic cancer status post Whipple procedure, presents the emergency department with lethargy and altered mental status as per her family. They report that she was discharged from [facility] round 8 PM last evening, and has not taken her medication since. Past Medical History - Provider Review Nursing Documentation Reviewed: Yes - Infectious Disease Hx of Infectious Diseases: None - Tetanus Immunization Tetanus Immunization: Unknown - Past Medical History Past Medical History: No Previous - Cardiac Hx Cardiac Disorders: No - Pulmonary Hx Respiratory Disorders: Yes Hx Asthma: Yes - Neurological Hx Neurological Disorder: No - HEENT Hx HEENT Disorder: No - Renal Hx Renal Disorder: No - Endocrine/Metabolic Hx Endocrine Disorders: No - Hematological/Oncological Hx Blood Disorders: Yes Hx Anemia: Yes (current) Hx Cancer: Yes (pancrratic cancer) - Integumentary Hx Dermatological Disorder: No - Musculoskeletal/Rheumatological Hx Falls: No - Gastrointestinal Hx Gastrointestinal Disorders: Yes Hx Gall Bladder Disease: Yes (biliary stent) Hx Pancreatitis: Yes (pancreatic cancer) - Genitourinary/Gynecological Hx Genitourinary Disorders: No - Psychiatric Hx Psychophysiologic Disorder: Yes Hx Depression: Yes Hx Substance Use: No - Past Surgical History Past Surgical History: No Previous - Surgical History Hx Section: Yes - Anesthesia Hx Anesthesia: Yes Hx Anesthesia Reactions: No Hx Malignant Hyperthermia: No - Suicidal Assessment Feels Threatened In Home Enviroment: No Family/Social History Family/Social History: Unknown Family HX Smoking Status: Former Smoker Hx Alcohol Use: No Hx Substance Use: No Hx Substance Use Treatment: No Allergies/Home Meds Allergies/Adverse Reactions: Allergies No Known Allergies Allergy (Verified 04/02/17 17:24) Home Medications: Home Meds Medication Instructions Recorded Confirmed Ferrous Sulfate [Feosol] 325 mg PO DAILY 03/19/17 03/19/17 Furosemide [Lasix] 40 mg PO DAILY 03/19/17 03/19/17 Lactulose [Generlac] 30 ml PO Q12 03/19/17 03/19/17 Lipase/Protease/Amylase [Zenpep Dr 5,000 unit PO TID 03/19/17 03/19/17 10,000 Units Capsule] Ondansetron 4 mg PO Q6 03/19/17 03/19/17 Pantoprazole [Protonix] 40 mg PO DAILY 03/19/17 03/19/17 Spironolactone [Aldactone] 0.5 tab PO DAILY 03/19/17 03/19/17 Sucralfate [Carafate] 1 gm PO Q6 03/19/17 03/19/17 Review of Systems - Review of Systems Systems not reviewed;Unavailable: Altered Mental Status Physical Exam - Physical Exam Physical Exam Limitations: Altered Mental Status Vital Signs Reviewed: Yes Vital Signs Temp Pulse Resp BP Pulse Ox 04/02/17 18:51 98.1 F 104 H 18 144/89 95 04/02/17 17:44 115 H 18 146/97 H 95 Temperature: Afebrile Blood Pressure: Hypertensive Pulse: Tachycardic Respiratory Rate: Normal Appearance: Positive for: Ill-Appearing, Cachectic Pain Distress: None Mental Status: Positive for: Confused, Agitated - Systems Exam Head: Present: Atraumatic, Normocephalic Pupils: Present: PERRL. No: Sluggish, Pinpoint Conjunctiva: Present: Icteric Mouth: Present: Dry. No: Drooling, Trismus Neck: No: Meningeal Signs, MIDLINE TENDERNESS, Paraspinal Tenderness Respiratory/Chest: Present: Clear to Auscultation, Good Air Exchange. No: Respiratory Distress, Accessory Muscle Use Cardiovascular: Present: Tachycardic. No: Irregular Rhythm Abdomen: Present: Tenderness. No: Distention, Rebound, Guarding Lower Extremity: Present: Edema, NORMAL PULSES, Swelling (b/l, no assymetry) Neurological: Present: Other (pt responsive to tactile stimuli only) Skin: Present: Other (jaundice) Medical Decision Making ED Course and Treatment: 04/02/17 20:55 46-year-old female with lethargy and altered mental status, family state that she has not taking any of her medications including her lactulose since her discharge from the hospital yesterday. Patient is lethargic and obtunded on examination. Patient is however protecting her airway, breathing is unlabored, not in respiratory distress. informed by RN pt is attempting to take out her IV and is combative ativan ordered pt in no distress on reeval lactulose ordered dw Dr. Collier from MICU, [facility] will evaluate EKG shows sinus tachycardia, 160/m, no ST segment elevations, normal intervals. Interpreted by me. 04/02/17 23:[address] Collier, [facility] pt can be admitted to telemetry Dr. Denisse Scherer, resident, aware of admission pt received lactulose 04/02/17 23:[address] Mcelroy, covering for Dr. Salcedo, accepted admission family aware of and agree with plan - Lab Interpretations Lab Results: 04/02/17 19:30 04/02/17 19:30 Lab Results 04/02/17 21:00: pCO2 36, pO2 65.0 L, HCO3 32.2 H, ABG pH 7.56 H, ABG Total CO2 33.3 H, ABG O2 Saturation 98.8 H, ABG O2 Content 10.5 L, ABG Base Excess 9.3 H, ABG Hemoglobin 7.8 L, ABG Carboxyhemoglobin 3.7 H, POC ABG HHb (Measured) 1.2, ABG Methemoglobin 0.0, ABG O2 Capacity 10.6 L, Hgb O2 Saturation 95.1, FiO2 21.0 04/02/17 19:30: Sodium 137, Potassium 3.9, Chloride 94 L, Carbon Dioxide 35 H, Anion Gap 12, BUN 8, Creatinine 0.7, Est GFR ( Amer) > 60, Est GFR (Non- Af Amer) > 60, Random Glucose 84, Calcium 8.8, Total Bilirubin 17.5 H, AST 116 H , ALT 48, Alkaline Phosphatase 93, Total Protein 7.7, Albumin 2.7 L, Globulin 5.0, Albumin/Globulin Ratio 0.5 L, Lipase < 10 L 04/02/17 19:30: PT 21.1 H, INR 1.95 H, APTT 41.8 H 04/02/17 19:30: WBC 13.7 H D, RBC 2.53 L, Hgb 8.5 L, Hct 25.4 L, MCV 100.4, MCH 33.6, MCHC 33.5, RDW 21.7 H, Plt Count 132, MPV 10.5, Gran % 86.9 H, Lymph % ( Auto) 6.3 L, [place] % (Auto) 6.6 H, Eos % (Auto) 0.1 L, Baso % (Auto) 0.1, Gran # 11.94 H, Lymph # 0.9 L, [place] # 0.9 H, Eos # 0.0, Baso # 0.01 04/02/17 19:30: Blood Type O POSITIVE, Antibody Screen Negative, BBK History Checked Patient has bt 04/02/17 19:30: Ammonia 131 H - RAD Interpretation Radiology Orders: 04/02/17 CHEST PORTABLE [RAD] Stat - Medication Orders Current Medication Orders: Discontinued Medications Sodium Chloride (Sodium Chloride 0.9%) 1,000 mls @ 1,000 mls/hr IV .Q1H STA Stop: 04/02/17 19:38 Last Admin: 04/02/17 19:50 Dose: 1,000 mls/hr Piperacillin Sod/Tazobactam Sod (Zosyn 4.5 Gm In Ns 100ml) 4.5 gm in 100 mls @ 200 mls/hr IVPB STAT STA PRN Reason: Protocol Stop: 04/02/17 19:09 Last Admin: 04/02/17 19:50 Dose: 200 mls/hr Lactulose (Generlac) 200 gm IA ONCE ONE Stop: 04/02/17 20:30 Last Admin: 04/02/17 22:02 Dose: 200 gm Lorazepam (Ativan) 2 mg IVP ONCE ONE Stop: 04/02/17 20:28 Last Admin: 04/02/17 20:32 Dose: 2 mg Disposition/Present on Arrival - Present on Arrival Any Indicators Present on Arrival: No History of DVT/PE: No History of Uncontrolled Diabetes: No Urinary Catheter: No History of Decub. Ulcer: No History Surgical Site Infection Following: None - Disposition Have Diagnosis and Disposition been Completed?: Yes Diagnosis: Serum ammonia increased Disposition: HOSPITALIZED Disposition Time: 23:07 Patient Plan: Admission Condition: FAIR Referrals: Nagi Damon MD [Primary Care Provider] - Follow up with primary
[2017-04-02 21:06] LABS: ARTERIAL BLOOD GAS HCO3 32.2 mmol/L (21-28); ARTERIAL BLOOD GAS O2 CAPACITY 10.6 mL/dl (16-24); ARTERIAL BLOOD GAS O2 CONTENT 10.5 ML/dl (15-23); ARTERIAL BLOOD GAS PH 7.56 (7.35-7.45); ARTERIAL BLOOD HGB O2 SAT 95.1 % (95.0-98.0); CARBOXYHEMOGLOBIN 3.7 % (0.5-1.5); HHB 1.2 % (0-5)
--- NOTE | 2017-04-02 23:19 | CP.PCM.CON ---
History of Present Illness - History of Present Illness History of Present Illness: Reason for ICU Consult: Altered mental status HPI: 46 y/o female with a PMHx Pancreatic Ca (dx'ed 01/2016) s/p whipple surgery and chemotherapy, who was recently discharged home yesterday from [facility]. As per her family members, they were unable to get her lactulose from the pharmacy and she became increasingly confused today to the point where she began walking into chen so she was brought to the ED. While in the ED the patient was agitated and received sedation with ativan 2mg IV x 1. Currently the patient is awake, not alert or communicative; she does not offer any history and most of the history is obtained through a combination of discussion with family members and chart review. She did not offer any complaints earlier this morning prior to her becoming increasingly altered and lethargic. 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 Allergies: NKDA Fam Hx: reviewed and noncontributory Soc Hx: prior smoker; no history of etoh or illicit drug use Meds: DSS 100mg po bid lasix 40mg po bid lactulose 30ml po tid Pancrelipase 5000 units tid protonix 40mg po daily aldactone 100mg po bid carafate 10mg po qid ursodiol 300mg po tid Review of Systems - Review of Systems Review of Systems: unable to obtain ROS due to altered mental status Past Patient History - Infectious Disease Hx of Infectious Diseases: None - Tetanus Immunizations Tetanus Immunization: Unknown - Past Social History Smoking Status: Former Smoker Alcohol: None Drugs: Denies Home Situation {Lives}: With Family - CARDIAC Hx Cardiac Disorders: No - PULMONARY Hx Respiratory Disorders: Yes Hx Asthma: Yes - NEUROLOGICAL Hx Neurological Disorder: No - HEENT Hx HEENT Problems: No - RENAL Hx Chronic Kidney Disease: No - ENDOCRINE/METABOLIC Hx Endocrine Disorders: No - HEMATOLOGICAL/ONCOLOGICAL Hx Blood Disorders: Yes Hx Anemia: Yes (current) Hx Cancer: Yes (pancrratic cancer) - INTEGUMENTARY Hx Dermatological Problems: No - MUSCULOSKELETAL/RHEUMATOLOGICAL Hx Falls: No - GASTROINTESTINAL Hx Gastrointestinal Disorders: Yes Hx Gall Bladder Disease: Yes (biliary stent) Hx Pancreatitis: Yes (pancreatic cancer) - GENITOURINARY/GYNECOLOGICAL Hx Genitourinary Disorders: No - PSYCHIATRIC Hx Psychophysiologic Disorder: Yes Hx Depression: Yes Hx Substance Use: No - SURGICAL HISTORY Hx Section: Yes - ANESTHESIA Hx Anesthesia: Yes Hx Anesthesia Reactions: No Hx Malignant Hyperthermia: No Meds Allergies/Adverse Reactions: Allergies Allergy/AdvReac Type Severity Reaction Status Date / Time No Known Allergies Allergy Verified 04/02/17 17:24 Physical Exam - Constitutional Appears: Confused, Cachectic, Chronically Ill - Head Exam Head Exam: ATRAUMATIC, NORMOCEPHALIC - Eye Exam Eye Exam: Scleral icterus Pupil Exam: NORMAL ACCOMODATION - ENT Exam ENT Exam: Mucous Membranes Dry - Respiratory Exam Respiratory Exam: Clear to Auscultation Bilateral, NORMAL BREATHING PATTERN. absent: Rales, Rhonchi, Wheezes, Respiratory Distress - Cardiovascular Exam Cardiovascular Exam: REGULAR RHYTHM, +S1, +S2 - GI/Abdominal Exam GI & Abdominal Exam: Soft. absent: Guarding, Rebound, Tenderness - Rectal Exam Rectal Exam: Deferred - Extremities Exam Extremities exam: Positive for: normal inspection. Negative for: calf tenderness - Neurological Exam Neurological exam: Altered (responds to physical or painful stimulus ) - Skin Additional comments: generalized jaundice Results - Vital Signs Recent Vital Signs: Last Vital Signs Temp 98.1 F 04/02/17 18:51 Pulse 104 H 04/02/17 18:51 Resp 18 04/02/17 18:51 BP 144/89 04/02/17 18:51 Pulse Ox 95 04/02/17 18:51 - Labs Result Diagrams: 04/02/17 19:30 04/02/17 19:30 Labs: Laboratory Results - last 24 hr 04/02/17 04/02/17 04/02/17 19:30 19:30 19:30 WBC 13.7 H D RBC 2.53 L Hgb 8.5 L Hct 25.4 L MCV 100.4 MCH 33.6 MCHC 33.5 RDW 21.7 H Plt Count 132 MPV 10.5 Gran % 86.9 H Lymph % (Auto) 6.3 L [place] % (Auto) 6.6 H Eos % (Auto) 0.1 L Baso % (Auto) 0.1 Gran # 11.94 H Lymph # 0.9 L [place] # 0.9 H Eos # 0.0 Baso # 0.01 PT INR APTT pCO2 pO2 HCO3 ABG pH ABG Total CO2 ABG O2 Saturation ABG O2 Content ABG Base Excess ABG Hemoglobin ABG Carboxyhemoglobin POC ABG HHb (Measured) ABG Methemoglobin ABG O2 Capacity Hgb O2 Saturation FiO2 Sodium Potassium Chloride Carbon Dioxide Anion Gap BUN Creatinine Est GFR ( Amer) Est GFR (Non-Af Amer) Random Glucose Calcium Total Bilirubin AST ALT Alkaline Phosphatase Ammonia 131 H Total Protein Albumin Globulin Albumin/Globulin Ratio Lipase Blood Type O POSITIVE Antibody Screen Negative BBK History Checked Patient has bt 04/02/17 04/02/17 04/02/17 19:30 19:30 21:00 WBC RBC Hgb Hct MCV MCH MCHC RDW Plt Count MPV Gran % Lymph % (Auto) [place] % (Auto) Eos % (Auto) Baso % (Auto) Gran # Lymph # [place] # Eos # Baso # PT 21.1 H INR 1.95 H APTT 41.8 H pCO2 36 pO2 65.0 L HCO3 32.2 H ABG pH 7.56 H ABG Total CO2 33.3 H ABG O2 Saturation 98.8 H ABG O2 Content 10.5 L ABG Base Excess 9.3 H ABG Hemoglobin 7.8 L ABG Carboxyhemoglobin 3.7 H POC ABG HHb (Measured) 1.2 ABG Methemoglobin 0.0 ABG O2 Capacity 10.6 L Hgb O2 Saturation 95.1 FiO2 21.0 Sodium 137 Potassium 3.9 Chloride 94 L Carbon Dioxide 35 H Anion Gap 12 BUN 8 Creatinine 0.7 Est GFR ( Amer) > 60 Est GFR (Non-Af Amer) > 60 Random Glucose 84 Calcium 8.8 Total Bilirubin 17.5 H AST 116 H ALT 48 Alkaline Phosphatase 93 Ammonia Total Protein 7.7 Albumin 2.7 L Globulin 5.0 Albumin/Globulin Ratio 0.5 L Lipase < 10 L Blood Type Antibody Screen BBK History Checked - EKG Data EKG Interpreted by: Myself EKG shows normal: Sinus rhythm Rate: Tachycardia Assessment & Plan - Assessment and Plan (Free Text) Assessment: 46 y/o female with a PMHx pancreatic CA s/p chemo and whipples, fulminant hepatic failure presents to the ED with altered mental status x 1 day due to being unable to get her lactulose. Patient currently is lethargic due to hepatic encephalopathy which needs to be cleared with repeated administrations of lactulose. She carries a MELD score of 25. An ABG was performed to asses whether or not she was adequately protecting her airway; when viewed in conjunction with her clinical picture, she is able to protect her airway, does not have any signs of respiratory distress or impending respiratory failure and may be kept on nasal cannula. At this time she does not require aggressive ICU level care for her hepatic encephalopathy, rather requires at least another lactulose enema followed by lactulose po/via ngt Q4-6H until she is more awake and alert. I also discussed the patient's wishes with the family and there was conflicting stories between the mother and her boyfriend; discussed the case with her daughter who states the patient is a full code as per her discussion with the physicians at [facility] yesterday, however they are considering comfort care as a possible option. Rec: continue lactulose via NGT or PO monitor oxygen saturation consider palliative care eval, however I will defer to the primary to initiate this consultation. In the event that the patient's condition worsens or she becomes hemodynamically unstable overnight, I will be available in house for re- evaluation as needed.
[2017-04-03] MEDS: Piperacillin/Tazobact 3.375 gm 100 ML IVPB SCH ×3 (02:53→12:24)
--- NOTE | 2017-04-03 04:34 | CP.PCM.HP ---
History of Present Illness - History of Present Illness History of Present Illness: 46 y/o F with PMH of Pancreatic cancer s/p whipple procedure and chemotherapy, liver cirrhosis, gastric wall tear, and asthma presents with AMS for the past day. Pt was recently admitted at [facility] for AMS secondary to newly diagnosed liver cirrhosis. Pt was altered during interview, information provided was from family, boyfriend, and previous medical records. Pt was discharged yesterday evening. Pts family was unable to fill prescriptions due to timing and patient did not receive any lactulose. By the time the prescriptions were filled the next day, pt became altered. She was at home walking around the house not knowing where she was going. At this point, the family brought her to the hospital for further evaluation. Of note, pt was admitted to the hospital earlier this month for similar complaints. Pt was eventually transferred out to tertiary care facility for further workup for liver condition. ROS not available due to patients mental status. PMHx: Pancreatic Ca, gastric wall tear, asthma, liver cirrhosis PSHx: Whipple (06/02), , repair of gastric wall tear Family Hx: DM, CAD Social Hx: Former tobacco use, denies alcohol and illicit drug use Allergies: NKDA Medications: See MAR Present on Admission - Present on Admission Any Indicators Present on Admission: No Review of Systems - Review of Systems Systems not reviewed;Unavailable: Altered Mental Status Past Patient History - Infectious Disease Hx of Infectious Diseases: None - Tetanus Immunizations Tetanus Immunization: Unknown - Past Social History Smoking Status: Former Smoker - CARDIAC Hx Cardiac Disorders: No - PULMONARY Hx Respiratory Disorders: Yes Hx Asthma: Yes - NEUROLOGICAL Hx Neurological Disorder: No - HEENT Hx HEENT Problems: No - RENAL Hx Chronic Kidney Disease: No - ENDOCRINE/METABOLIC Hx Endocrine Disorders: No - HEMATOLOGICAL/ONCOLOGICAL Hx Blood Disorders: Yes Hx Anemia: Yes (current) Hx Cancer: Yes - INTEGUMENTARY Hx Dermatological Problems: No - MUSCULOSKELETAL/RHEUMATOLOGICAL Hx Falls: No - GASTROINTESTINAL Hx Gastrointestinal Disorders: Yes Hx Gall Bladder Disease: Yes (biliary stent) Hx Pancreatitis: Yes (pancreatic cancer) - GENITOURINARY/GYNECOLOGICAL Hx Genitourinary Disorders: No - PSYCHIATRIC Hx Substance Use: No - SURGICAL HISTORY Hx Surgeries: Yes (whipple, x2, abd internal clamp) Hx Cholecystectomy: (biliary stent) - ANESTHESIA Hx Anesthesia: Yes Hx Anesthesia Reactions: No Hx Malignant Hyperthermia: No Meds Allergies/Adverse Reactions: Allergies Allergy/AdvReac Type Severity Reaction Status Date / Time No Known Allergies Allergy Verified 04/02/17 17:24 Physical Exam - Constitutional Appears: Toxic, No Acute Distress - Head Exam Head Exam: ATRAUMATIC, NORMAL INSPECTION, NORMOCEPHALIC - Eye Exam Eye Exam: Scleral icterus - ENT Exam ENT Exam: Mucous Membranes Dry - Neck Exam Neck exam: Positive for: Normal Inspection. Negative for: Lymphadenopathy - Respiratory Exam Respiratory Exam: Decreased Breath Sounds, NORMAL BREATHING PATTERN. absent: Rales, Rhonchi, Wheezes - Cardiovascular Exam Cardiovascular Exam: Tachycardia, REGULAR RHYTHM, +S1, +S2 - GI/Abdominal Exam GI & Abdominal Exam: Normal Bowel Sounds, Organomegaly (Liver felt 3 cm below costal margin), Soft. absent: Tenderness - Extremities Exam Extremities exam: Positive for: pedal edema (+2 pitting edema b/l). Negative for: calf tenderness - Neurological Exam Neurological exam: Altered - Skin Skin Exam: Dry, Intact Additional comments: Jaundice Results - Vital Signs Recent Vital Signs: Last Vital Signs Temp 98.1 F 04/02/17 18:51 Pulse 123 H 04/02/17 23:55 Resp 18 04/03/17 03:09 BP 110/63 04/02/17 23:55 Pulse Ox 94 L 04/02/17 23:55 - Labs Result Diagrams: 04/02/17 19:30 04/02/17 19:30 Assessment & Plan - Assessment and Plan (Free Text) Plan: 46 y/o F with PMH of Pancreatic cancer s/p whipple procedure and chemotherapy, liver cirrhosis presents with AMS. Pt will be started on lactulose enemas every 6 hours. Oral medications will be restarted once pt is more alert. Pt will also be started on empiric therapy for infection as her WBC is elevated. GI and ID will be consulted. ICU evaluated pt and determined pt was not a candidate for ICU as she is adequately protecting her airway. Pt is full code at this time. Family is considering comfort care as per discussion with shoe stitcher odd. 1. AMS Likely secondary to liver cirrhosis Lactulose enemas q6h Monitor mental status closesly 2. Sepsis Zosyn given in ED and will continue abx Procal ordered ID consulted, Dr. Solis 3. Liver Cirrhosis s/p pancreatic cancer chemotherapy Lactulose enemas q6h until pt is able to tolerate PO or NGT placed Ammonia levels daily GI Consulted, Dr. Turner 4. PPX Protonix Heparin Shaun, PGY-1
[2017-04-03] MEDS: Lactulose 10 gm/15 ml (Rectal Use) PR SCH ×3 (06:02→07:52)
[2017-04-03 06:40] LABS: INR 2.11 (0.93-1.08)
[2017-04-03] MEDS ORDERED: Sodium Chloride 0.9% 1,000 ML IV SCH (07:30)
[2017-04-03 07:59] LABS: HEMATOCRIT 24.7 % (36.0-48.0); MEAN CELL VOLUME 100.8 fL (80.0-105.0); MEAN CORPUSCULAR HEMOGLOBIN 33.9 pg (25.0-35.0); MEAN CORPUSCULAR HGB CONC 33.6 g/dl (31.0-37.0); MEAN PLATELET VOLUME 10.5 fl (7.0-11.0); RED CELL DISTRIBUTION WIDTH 22.2 % (11.5-14.5); WHITE BLOOD COUNT 12.8 10^3/ul (4.5-11.0)
[2017-04-03 08:13] LABS: ALKALINE PHOSPHATASE 84 U/L (38-133); ALT/SGPT 49 U/L (7-56); AST/SGOT 105 U/L (15-39); BILIRUBIN,TOTAL 16.7 mg/dL (0.2-1.3); BLOOD UREA NITROGEN 11 mg/dL (7-21); CALCIUM 8.6 mg/dL (8.4-10.5); CARBON DIOXIDE 32 mmol/L (21-33); CHLORIDE 100 mmol/L (95-110); GFR AFRICAN-AMERICAN > 60; GLUCOSE,RANDOM 74 mg/dL (70-110); POTASSIUM 3.6 mmol/L (3.6-5.0); SODIUM 143 mmol/L (132-148); TOTAL PROTEIN 6.9 g/dL (5.8-8.3)
[2017-04-03 08:21] LABS: ALB/GLOB RATIO 0.5 (1.1-1.8)
[2017-04-03] MEDS ORDERED: Sodium Chloride 0.9% 1,000 ML IV STA (10:10)
--- NOTE | 2017-04-03 10:19 | CP.PCM.CON ---
History of Present Illness - History of Present Illness History of Present Illness: Seen and examined at bedside and chart was reviewed this morning. Request for consult is for Liver Failure/ H/O Pancreatic Cancer. HPI: This is a 46 y.o female with a PMH of Pancreatic Cancer s/p Whipple about 11 months ago at [facility]. She also over a month had GIB for for gastric wall tear and had EGD with clips. She was last seen by our service a few weeks ago for Jaundice and was found to be in Acute Liver Failure and transferred to [facility]. There she was treated, had a Paracentesis r/o SBP and according to family was discharged on oral antibiotics. Also had a trans jugular liver BX. She was discharged yesterday evening on Lactulose, the patient when at home had altered mental status, not been given meds because unable to fill RX as DC late last night. On review of labs the patient was found to have elevated ammonia level, patient unable to take oral secondary to lethargy was being given Lactulose enema rectally. She was reported to have multiple BM, no report of melena or BRBPR. The patient is very lethargic but moving a bit in the bed. The patient mother and Aunt is at the bedside. History obtained from family, medical staff and chart. No reports of SOB, CP, N/V, overt GIB or abdominal pain. No fever or chills. PMH: Pancreatic Cancer, s/p chemo, Gastric wall tear s/p clipping, Asthma, Liver Cirrhosis SHX: Whipple (05/2016) with biliary stent, EGD for gastric wall tear, FHX: DM, CAD Social (+) smoking, denies ETOH, drugs MEDS: reviewed as per [facility]GIES: NKDA ROS:unable to review with patient lethargic. See HPI Past Patient History - Infectious Disease Hx of Infectious Diseases: None - Tetanus Immunizations Tetanus Immunization: Unknown - Past Social History Smoking Status: Former Smoker - CARDIAC Hx Cardiac Disorders: No - PULMONARY Hx Respiratory Disorders: Yes Hx Asthma: Yes - NEUROLOGICAL Hx Neurological Disorder: No - HEENT Hx HEENT Problems: No - RENAL Hx Chronic Kidney Disease: No - ENDOCRINE/METABOLIC Hx Endocrine Disorders: No - HEMATOLOGICAL/ONCOLOGICAL Hx Blood Disorders: Yes Hx Anemia: Yes (current) Hx Cancer: Yes - INTEGUMENTARY Hx Dermatological Problems: No - MUSCULOSKELETAL/RHEUMATOLOGICAL Hx Falls: No - GASTROINTESTINAL Hx Gastrointestinal Disorders: Yes Hx Gall Bladder Disease: Yes (biliary stent) Hx Pancreatitis: Yes (pancreatic cancer) - GENITOURINARY/GYNECOLOGICAL Hx Genitourinary Disorders: No - PSYCHIATRIC Hx Substance Use: No - SURGICAL HISTORY Hx Surgeries: Yes (whipple, x2, abd internal clamp) Hx Cholecystectomy: (biliary stent) - ANESTHESIA Hx Anesthesia: Yes Hx Anesthesia Reactions: No Hx Malignant Hyperthermia: No Meds Allergies/Adverse Reactions: Allergies Allergy/AdvReac Type Severity Reaction Status Date / Time No Known Allergies Allergy Verified 04/02/17 17:24 - Medications Medications: Current Medications Heparin Sodium (Porcine) (Heparin) 5,000 units SC Q12 TK PRN Reason: Protocol Piperacillin Sod/Tazobactam Sod (Zosyn 3.375 In Ns 100ml) 100 mls @ 200 mls/hr IVPB Q6 TK PRN Reason: Protocol Stop: 04/10/17 02:01 Last Admin: 04/03/17 06:10 Dose: 200 mls/hr Dextrose (Dextrose 5% In Water 1000 Ml) 1,000 mls @ 200 mls/hr IV .Q5H TK Last Admin: 04/03/17 08:30 Dose: 200 mls/hr Lactulose (Generlac) 200 gm LA Q6H TK Last Admin: 04/03/17 07:52 Dose: 200 gm Ondansetron HCl (Zofran Inj) 4 mg IVP Q4H PRN PRN Reason: Nausea/Vomiting Pantoprazole Sodium (Protonix Inj) 40 mg IVP DAILY [facility] Pneumococcal Polyvalent Vaccine (Pneumovax 23 Vaccine) 0.5 ml IM .ONCE ONE Stop: 04/05/17 10:01 Physical Exam - Constitutional Appears: No Acute Distress Additional comments: Lethargic - Head Exam Head Exam: NORMOCEPHALIC - Eye Exam Eye Exam: Scleral icterus - ENT Exam ENT Exam: Mucous Membranes Moist - Neck Exam Neck exam: Positive for: Normal Inspection - Respiratory Exam Respiratory Exam: Decreased Breath Sounds, NORMAL BREATHING PATTERN. absent: Rales, Wheezes, Respiratory Distress - Cardiovascular Exam Cardiovascular Exam: +S1, +S2 - GI/Abdominal Exam GI & Abdominal Exam: Distended, Normal Bowel Sounds, Soft. absent: Guarding, Rebound, Tenderness Additional comments: Right sided dressing D&I ( had paracentesis [facility]) - Extremities Exam Extremities exam: Positive for: pedal edema, pedal pulses present - Neurological Exam Neurological exam: Altered - Skin Additional comments: Jaundice Results - Vital Signs Recent Vital Signs: Last Vital Signs Temp 98.1 F 04/02/17 18:51 Pulse 123 H 04/02/17 23:55 Resp 18 04/03/17 03:09 BP 110/63 04/02/17 23:55 Pulse Ox 94 L 04/02/17 23:55 - Labs Result Diagrams: 04/03/17 06:00 04/03/17 06:00 Labs: Laboratory Results - last 24 hr 04/03/17 04/03/17 04/03/17 05:15 06:00 06:00 WBC 12.8 H RBC 2.45 L Hgb 8.3 L Hct 24.7 L MCV 100.8 MCH 33.9 MCHC 33.6 RDW 22.2 H Plt Count 140 MPV 10.5 PT 22.8 H INR 2.11 H Sodium 143 Potassium 3.6 Chloride 100 Carbon Dioxide 32 Anion Gap 15 BUN 11 Creatinine 0.7 Est GFR ( Amer) > 60 Est GFR (Non-Af Amer) > 60 Random Glucose 74 Calcium 8.6 Total Bilirubin 16.7 H AST 105 H ALT 49 Alkaline Phosphatase 84 Ammonia Total Protein 6.9 Albumin 2.4 L Globulin 4.4 Albumin/Globulin Ratio 0.5 L 04/03/17 07:05 WBC RBC Hgb Hct MCV MCH MCHC RDW Plt Count MPV PT INR Sodium Potassium Chloride Carbon Dioxide Anion Gap BUN Creatinine Est GFR ( Amer) Est GFR (Non-Af Amer) Random Glucose Calcium Total Bilirubin AST ALT Alkaline Phosphatase Ammonia 84 H Total Protein Albumin Globulin Albumin/Globulin Ratio Assessment & Plan - Assessment and Plan (Free Text) Assessment: ASSESSMENT: Altered Mental Status, secondary to Hepatic Encephelopathy Liver Cirrhosis, MELD score: 25: 19.6% ,3 month mortality rate H/O Pancreatic Cancer, s/p Whipple with biliary stent Sepsis Anemia PLAN: restart fluids IVF 0.9%NS @ 200 cc/hr X 1 liter, then decrease to 100cc/hr NPO Neuro checks Q4 X24 hrs Monitor LFT, ammonia level, electrolytes currently on Lactulose enema, once OG is placed, Lactulose will be change to PO : recommend Lactulose 20 gm via OG Q4H till 2-3 soft BM, then Titrate Lactulose to 2BM/day Insert Orogastric tube for adminstration of lactulose, discuss with family that INR is elevated, risk for bleeding. ICU evaluation, DR Guzman in to evaluate patient, await transfer ID consult on IVF antibiotics Zosyn, recommend reduce dose secondary to liver functions GI Prophylaxsis: Protonix 40 IV daily DVT prophylaxsis, elevated INR, rec SCD Thank you for this consult and for allowing us to participate in your patient care, will recommendations based upon clinical course. Detailed discussion done with mother and aunt at the bedside. Seen and discussed with Dr. Turner.
--- NOTE | 2017-04-03 10:32 | CP.PCM.PN ---
<Claudia Snyder - Last Filed: 04/03/17 15:57> Subjective - Date & Time of Evaluation Date of Evaluation: 04/03/17 Time of Evaluation: 07:55 - Subjective Subjective: Patient's mental status worsened while on the tele floor, thus patient had to be transferred to ICU for further monitoring and management. Family aware. Objective - Vital Signs/Intake and Output Vital Signs (last 24 hours): Temp Pulse Resp BP Pulse Ox 98.1 F 123 H 18 110/63 94 L 04/02/17 18:51 04/02/17 23:55 04/03/17 03:09 04/02/17 23:55 04/02/17 23:55 Intake and Output: 04/03/17 04/03/17 06:59 18:59 Intake Total 0 Balance 0 - Medications Medications: Current Medications Heparin Sodium (Porcine) (Heparin) 5,000 units SC Q12 TK PRN Reason: Protocol Piperacillin Sod/Tazobactam Sod (Zosyn 3.375 In Ns 100ml) 100 mls @ 200 mls/hr IVPB Q6 TK PRN Reason: Protocol Stop: 04/10/17 02:01 Last Admin: 04/03/17 06:10 Dose: 200 mls/hr Sodium Chloride (Sodium Chloride 0.9%) 1,000 mls @ 200 mls/hr IV .Q5H STA Stop: 04/03/17 15:09 Lactulose (Generlac) 200 gm [place] Q6H TK Last Admin: 04/03/17 07:52 Dose: 200 gm Lactulose (Enulose) 20 gm NG Q4H TK Ondansetron HCl (Zofran Inj) 4 mg IVP Q4H PRN PRN Reason: Nausea/Vomiting Pantoprazole Sodium (Protonix Inj) 40 mg IVP DAILY TK Pneumococcal Polyvalent Vaccine (Pneumovax 23 Vaccine) 0.5 ml IM .ONCE ONE Stop: 04/05/17 10:01 - Labs Labs: 04/03/17 06:00 04/03/17 06:00 PT 22.8 Seconds (9.9-11.8) H 04/03/17 05:15 INR 2.11 (0.93-1.08) H 04/03/17 05:15 APTT 41.8 Seconds (23.7-30.8) H 04/02/17 19:30 <Nagi Damon - Last Filed: 04/21/17 18:57> Objective - Vital Signs/Intake and Output Vital Signs (last 24 hours): Temp Pulse Resp BP Pulse Ox 98.4 F 108 H 20 93/51 L 94 L 04/03/17 12:00 04/03/17 14:24 04/03/17 14:24 04/03/17 14:24 04/03/17 14:24 - Labs Labs: 04/03/17 06:00 04/03/17 06:00 PT 22.8 Seconds (9.9-11.8) H 04/03/17 05:15 INR 2.11 (0.93-1.08) H 04/03/17 05:15 APTT 41.8 Seconds (23.7-30.8) H 04/02/17 19:30 Attending/Attestation - Attestation I have personally seen and examined this patient.: Yes I have fully participated in the care of the patient.: Yes I have reviewed all pertinent clinical information, including history, physical exam and plan: Yes Notes (Text): 04/21/17 18:57 Medical record note made by the resident after discussion with my direction and input after the patient was personally seen and examined by me. I have reviewed the chart and agree that the record accurately reflects by personal performance of the history, physical exam, data review, and medical decision-making, in the course for the patient. I have also personally directed the plan of care.
[2017-04-03] MEDS ORDERED: Albumin Human 25% (12.5 gm/50 ml) IV SCH (11:15)
[2017-04-03 12:50] VITALS: TEMP 98.4
[2017-04-03] MEDS ORDERED: Morphine 2 mg/ml ISec IVP STA (12:53)
--- NOTE | 2017-04-03 12:57 | RAD ---
HISTORY: placement ngt COMPARISON: No prior. FINDINGS: LUNGS: No active pulmonary disease. Minimal atelectasis right lung base PLEURA: No significant pleural effusion identified, no pneumothorax apparent. CARDIOVASCULAR: Normal. OSSEOUS STRUCTURES: No significant abnormalities. VISUALIZED UPPER ABDOMEN: Nasogastric tube in the stomach OTHER FINDINGS: Left-sided Port-A-Cath IMPRESSION: Nasogastric tube in satisfactory position
--- NOTE | 2017-04-03 14:04 | CP.PCM.CON ---
History of Present Illness - History of Present Illness History of Present Illness: Palliative consult requested by Dr Je Damon Reason: gaols of care/hospice discussion 46 year female with history of pancreatic cancer, s/p Whipple procedure , liver cirrhosis who presented with altered mental status. PMHx: pancreatic cancer s/p Whipple procedure, s/p chemotherapy, liver cirrhosis , CAD, gastric wall tear s/p repair,asthma. Family History: Non contributory. Social History: Former smoker, no alcohol or drug use. Lives with significant other. Advance Care Planning: The patient does not have an Advance Directive. Patient' s daughter, Saman Mckeon is designated decision maker Past Patient History - Infectious Disease Hx of Infectious Diseases: None - Tetanus Immunizations Tetanus Immunization: Unknown - Past Social History Smoking Status: Former Smoker - CARDIAC Hx Cardiac Disorders: No - PULMONARY Hx Respiratory Disorders: Yes Hx Asthma: Yes - NEUROLOGICAL Hx Neurological Disorder: No - HEENT Hx HEENT Problems: No - RENAL Hx Chronic Kidney Disease: No - ENDOCRINE/METABOLIC Hx Endocrine Disorders: No - HEMATOLOGICAL/ONCOLOGICAL Hx Blood Disorders: Yes Hx Anemia: Yes (current) Hx Cancer: Yes - INTEGUMENTARY Hx Dermatological Problems: No - MUSCULOSKELETAL/RHEUMATOLOGICAL Hx Falls: No - GASTROINTESTINAL Hx Gastrointestinal Disorders: Yes Hx Gall Bladder Disease: Yes (biliary stent) Hx Pancreatitis: Yes (pancreatic cancer) - GENITOURINARY/GYNECOLOGICAL Hx Genitourinary Disorders: No - PSYCHIATRIC Hx Substance Use: No - SURGICAL HISTORY Hx Surgeries: Yes (whipple, x2, abd internal clamp) Hx Cholecystectomy: (biliary stent) - ANESTHESIA Hx Anesthesia: Yes Hx Anesthesia Reactions: No Hx Malignant Hyperthermia: No Meds Allergies/Adverse Reactions: Allergies Allergy/AdvReac Type Severity Reaction Status Date / Time No Known Allergies Allergy Verified 04/02/17 17:24 - Medications Medications: Current Medications Albumin Human (Albumin Human 25% (12.5 Gm/50 Ml)) 12.5 gm IV Q2H TK Stop: 04/03/17 21:16 Last Admin: 04/03/17 12:23 Dose: 12.5 gm Piperacillin Sod/Tazobactam Sod (Zosyn 3.375 In Ns 100ml) 100 mls @ 200 mls/hr IVPB Q6 TK PRN Reason: Protocol Stop: 04/10/17 02:01 Last Admin: 04/03/17 12:24 Dose: 200 mls/hr Sodium Chloride (Sodium Chloride 0.9%) 1,000 mls @ 200 mls/hr IV .Q5H STA Stop: 04/03/17 15:09 Last Admin: 04/03/17 10:00 Dose: 200 mls/hr Lactulose (Enulose) 20 gm NG Q4H [facility] Last Admin: 04/03/17 11:30 Dose: 20 gm Ondansetron HCl (Zofran Inj) 4 mg IVP Q4H PRN PRN Reason: Nausea/Vomiting Pantoprazole Sodium (Protonix Inj) 40 mg IVP DAILY [facility] Last Admin: 04/03/17 12:23 Dose: 40 mg Pneumococcal Polyvalent Vaccine (Pneumovax 23 Vaccine) 0.5 ml IM .ONCE ONE Stop: 04/05/17 10:01 Rifaximin (Xifaxan) 550 mg PO BID [facility] PRN Reason: Protocol Last Admin: 04/03/17 12:24 Dose: 550 mg Physical Exam - Constitutional Appears: Chronically Ill - Eye Exam Eye Exam: Scleral icterus - ENT Exam ENT Exam: Mucous Membranes Moist, Normal Oropharynx - Respiratory Exam Respiratory Exam: Decreased Breath Sounds, NORMAL BREATHING PATTERN - Cardiovascular Exam Cardiovascular Exam: Tachycardia, +S1, +S2 - GI/Abdominal Exam GI & Abdominal Exam: Diminished Bowel Sounds, Distended - Extremities Exam Additional comments: 2+ bilateral lower extremity edema - Back Exam Back exam: NORMAL INSPECTION - Neurological Exam Neurological exam: Altered - Skin Additional comments: jaundice - Additional Findings Additional findings: Palliative performances scale rating 30% Results - Vital Signs Recent Vital Signs: Last Vital Signs Temp 98.4 F 04/03/17 12:00 Pulse 106 H 04/03/17 13:40 Resp 19 04/03/17 13:40 BP 89/50 L 04/03/17 13:25 Pulse Ox 95 04/03/17 13:40 - Labs Result Diagrams: 04/03/17 06:00 04/03/17 06:00 Labs: Laboratory Results - last 24 hr 04/03/17 04/03/17 04/03/17 05:15 06:00 06:00 WBC 12.8 H RBC 2.45 L Hgb 8.3 L Hct 24.7 L MCV 100.8 MCH 33.9 MCHC 33.6 RDW 22.2 H Plt Count 140 MPV 10.5 PT 22.8 H INR 2.11 H Sodium 143 Potassium 3.6 Chloride 100 Carbon Dioxide 32 Anion Gap 15 BUN 11 Creatinine 0.7 Est GFR ( Amer) > 60 Est GFR (Non-Af Amer) > 60 POC Glucose (mg/dL) Random Glucose 74 Calcium 8.6 Total Bilirubin 16.7 H AST 105 H ALT 49 Alkaline Phosphatase 84 Ammonia Total Protein 6.9 Albumin 2.4 L Globulin 4.4 Albumin/Globulin Ratio 0.5 L Beta HCG, Quant 04/03/17 04/03/17 04/03/17 07:05 08:17 08:50 WBC RBC Hgb Hct MCV MCH MCHC RDW Plt Count MPV PT INR Sodium Potassium Chloride Carbon Dioxide Anion Gap BUN Creatinine Est GFR ( Amer) Est GFR (Non-Af Amer) POC Glucose (mg/dL) 108 Random Glucose Calcium Total Bilirubin AST ALT Alkaline Phosphatase Ammonia 84 H Total Protein Albumin Globulin Albumin/Globulin Ratio Beta HCG, Quant < 2.39 Assessment & Plan - Assessment and Plan (Free Text) Assessment: 46 year old female admitted with altered mental status, liver cirrhosis, elevated ammonia level, jaundice. History of pancreatic cancer, s/p Whipple procedure, s/p ventral wall repair,. Patient is altered, extremely restless,moaning in pain. Patients daughter, mother and boyfriend at bedside. Family had been considering transfer to [facility]. Family verbalizing that patient has suffered for a long time with this illness and that they want her to be kept comfortable. Family designated Saman aleman as decision maker.Option for comfort /hospice care discussed at length. All questions answered. Family decided that they want hospice care. Family requesting that all medical interventions be stopped with the exception of pain and symptom management. Family met with Jessika hospice clinical marketer. Hospice consent signed by love Davison for [facility] hospice care. Psychosocial support given. Spiritual support declined Time spent with family in goals of care discussion, end of life counseling, 75 minutes Plan: Plan discussed with Nelson Toledo who is in agreement, Hospice evaluation for [facility] services. Discontinue all procedure, testing, medications with the exception of Morphine for pain management and Ativan for restlessness /seizure activity
[2017-04-03 15:08] VITALS: BP 93/51; PULSE 108; RESP 20; O2SAT 94
--- NOTE | 2017-04-03 15:11 | CON ---
DATE: 04/03/2017 HISTORY OF PRESENT ILLNESS: This is a 46-year-old lady with history of pancreatic cancer status post Whipple procedure who presented yesterday with altered mental status and lethargy, due to likely nonadherence to her medication that she was taking for chronic liver insufficiency and included lactulose to prevent hepatic encephalopathy. The patient has end-stage liver disease of unclear etiology, which developed after Whipple procedure. Most of her workup in this regard was done in [facility] and all the records in this regard are in [facility] as well. Reportedly, patient was in the process of being evaluated for liver transplant. She had also undergone transjugular liver biopsy. The patient was admitted to med/surg floor; however, her mental status continued to deteriorate and ICU was called due to questionable patency and ability to protect her airways. Reportedly, the patient is cancer free after the Whipple procedure. Dr. Patel is following the patient as well. No nausea, no vomiting, no diarrhea, no chest pain, no shortness of breath. No fever, no chills, no sweats. PAST MEDICAL HISTORY: Asthma, history of pancreatic cancer, status post Whipple procedure, depression. SOCIAL HISTORY: The patient is an ex-smoker. No alcohol or illicit drug abuse. ALLERGIES: NKDA. MEDICATIONS AT HOME: Feosol, furosemide, lactulose, Zofran, Protonix, Aldactone , Sucralfate. FAMILY HISTORY: Noncontributory. MEDICATIONS: In the hospital, heparin subQ, lactulose, Zofran p.r.n., Protonix , normal saline at 200 mL per hour, Zosyn. REVIEW OF SYSTEMS: Review of 12-organ system, other than mentioned in history of present illness is negative. PHYSICAL EXAMINATION: GENERAL: The patient is responsive to deep touch stimuli. VITAL SIGNS: Blood pressure 106/66, oxygen saturation 97% on 4 liters per minute (dialed down to 2 liters per minute), heart rate 114. HEAD AND NECK: Atraumatic. LUNGS: Clear to auscultation bilaterally. HEART: Regular rate and rhythm. S1, S2 normal. ABDOMEN: Soft. Nontender, nondistended. MUSCULOSKELETAL: Skin is jaundiced. Trace to 1+ bilateral pedal and ankle edema. NEUROLOGIC: The patient was seen moving all extremities spontaneously. SKIN: Moist. PSYCHIATRIC: The patient is very lethargic and responsive only to deep touch stimuli. LABORATORY DATA: WBC 12.8, hemoglobin 8.3, platelet count 140. Sodium 143, potassium 3.6, chloride 100, carbon dioxide 32, BUN 11, creatinine 0.7, glucose 108. Ammonia 84, down from 131, albumin 2.4, AST 105, down from 116, ALT 49, down from 48. INR 2.11. ABG yesterday showed 7.56/36/65 on room air. PLAN: This is a 46-year-old lady with significant hepatic encephalopathy who has been evaluated in [facility] for liver transplant. Additional information from [facility] is pending. At present time, we will proceed with antibiotics, septic workup, procalcitonin, albumin supplementation and fluid resuscitation, CAT scan of the abdomen and pelvis and head. We will continue with serial ammonia level, and will trend lactic acid level. The patient did not have any overt signs of bleeding and her hemoglobin is relatively stable. Platelet count is relatively stable. NG tube was placed and rifaximin started. Hopefully, as her ammonia level goes down, her level of consciousness improves. We will continue to target euvolemia, euglycemia, normothermia and oxygen saturation more than 90%. We will continue with maintenance IV fluids. We will have low threshold for intubation for airway protection. ccm time 40 min José Miguel Guzman MD cc: [id number] TT: 04/03/2017 15:06:06 Confirmation # [id number] Dictation # [id number] katalina 04/03/2017 14:09:54 DEISY
--- NOTE | 2017-04-03 16:34 | CARD ---
APPROVED REPORT EKG Measurement Heart [id number] <Conclusion> Sinus tachycardia Cannot rule out Inferior infarct, age undetermined Cannot rule out Anterior infarct, age undetermined Abnormal ECG
--- NOTE | 2017-04-04 01:55 | CON ---
DATE: 04/03/2017 ADDENDUM: This is an addendum to the GI consultation report dictated by Radha Mckeon APN. HISTORY OF PRESENT ILLNESS: This patient was seen and evaluated earlier today. Discussed with the p deni's mother and also the patient's nephew, who is also a online project manager. A detailed discussion was made. The patient was recently in the [facility] with liver failure. Had status post transjugular liver biopsy done. Had sepsis, was treated with doxycycline. Admitted with change of mental status, hepatic enc ephalopathy, sepsis. The patient has a high MELD score. The patient was on lactulose enema. We karin nned OG-tube placement at that time with IV fluids. The detailed discussion was held with the patien t's mother and also with other family members. They were contemplating initially about transferring to [facility] versus hospice care. The patient discussed with the chief of vital statistics. The patient was planned t o be transferred to the [facility], but, however, the family decided to follow the comfort care. The prisca ent has history of pancreatic cancer, status post Whipple resection. Overall prognosis remains poor. I have also discussed with Dr. Patel, oncologist, at length. PHYSICAL EXAMINATION: The patient, at the time of examination, was encephalopathic, not responsive. Spontaneous movement of the extremities were present. Not responsive to verbal commands. Abdomen w as softly distended. There was a dressing present on the right side, appeared to be the site of the paracentesis. PLAN: Continue the supportive care. Thank you very much for allowing us to participate in the care of the patient. Jacinta Turner MD cc: [id number] TT: 04/04/2017 01:54:45 Confirmation # [id number] Dictation # [id number] frances
--- NOTE | 2017-04-04 07:34 | CON ---
DATE: 04/03/2017 The patient is in room 370, bed 2. The patient is being transferred to the unit. HISTORY OF PRESENT ILLNESS: This is a 46-year-old female with a history of pancreatic cancer. I hav e been asked to consult her regarding the overall prognosis in the background history of worsening li cheng failure. The patient has a history of pancreatic cancer status post Whipple procedure done at [facility] ([facility] being followed by Dr. Hilliard medical oncologist at [facility]. The patient apparent ly after the Whipple procedure had initially neoadjuvant chemotherapy followed by adjuvant chemothera py with I assume a drug called Xeloda/capecitabine. Prior to that, she received capecitabine and gem citabine. The patient also had a plastic stent in the common bile duct and the patient has had 2 adm issions to [facility], one admission to [facility] since 02/2017. Throug h these 3 admissions, the patient has gotten progressively worse as far as the liver dysfunction is c oncerned. Last admission, the patient was in [facility]. She was noted to be coagulopat hic with a PT/INR that was in the therapeutic range without being on anticoagulants, low fibrinogen a nd high . The patient was transferred to the liver unit at [facility] where workup was done for her including a transjugular liver biopsy, which I believe was told to show cirrhosis of the liver. The patient was discharged from [facility] 48 hours ago and was given a followup appointment to see them on or al medications. At the time of discharge, apparently, the patient was awake and alert and the patien t was told to make an appointment to see Dr. Hilliard at [facility] to make a decision whether the risk of the pancreatic cancer coming back would be increased by being assessed for liver transpla nt. In the meantime, the patient home, she started deteriorating, daughter had called me, who I know very well, and I advised the patient to be back in the Emergency Room where she was noted to b e in hepatic failure with a very high ammonia level. I had spoken to Dr. Turner through the night and the plan was to rapidly reduce the level by giving her oral through her nasogastric tube an d monitor her until we make some decision as to which direction to go, whether she was a candidate fo r liver transplant or not, even though metabolically speaking and physically speaking in my opinion i t was not the choice in order. I have spoken to Dr. Hilliard earlier today, the medical oncologist, who f elt that the cause of the liver failure at this time is unclear, even though there was no evidence of recurrence of cancer, the overwhelming incidence and progression with recurrence of pancreatic cance r despite . They did not want us to recommend a liver transplant, especially when the patient's overall prognosis from the liver failure is so dismal. The patient was transferred to the unit to lois hamilton sure we were aggressive with her management including the possibility of elective intubation, billy p her airways patent, as she was metabolically worsening and slipping into a coma. I have been follo wing the patient for the last 2 admissions and my recommendation after discussing with the transplant unit keeler polygraph operator and Dr. Turner who is the keeler polygraph operator following her here at the hospital, we fe lt that the overall prognosis was so poor that supportive care was in order. PAST MEDICAL HISTORY: Significant for asthma, history of pancreatic cancer status post Whipple proce dure, depression. SOCIAL HISTORY: The patient used to be a heavy smoker, but she is an ex-smoker, no alcohol or illici t drug abuse. ALLERGIES: No known allergies. HOME MEDICATIONS: Include Feosol, furosemide, lactulose, Zofran, Protonix, Aldactone, sucralfate. FAMILY HISTORY: Noncontributory. MEDICATIONS IN THE HOSPITAL: She has been started on heparin subQ, lactulose, Zofran p.r.n., Protoni x, normal saline at 200 mL an hour. REVIEW OF SYSTEMS: Twelve organ system other than mentioned in the HPI is negative. PHYSICAL EXAMINATION: GENERAL: The patient is responsive to deep touch stimuli. VITAL SIGNS: Reveal a blood pressure to be 106/66, O2 sats 97% on 4 liters of oxygen. HEENT: Head is normocephalic, atraumatic. The patient is deeply icteric. LUNGS: Clear to percussion and auscultation. OROPHARYNX: Examination of the oropharynx reveals the tongue to be dry. No oropharyngeal lesions ar e noted. No bleeding is noted. HEART: Reveals S1 and S2 to be normal. ABDOMEN: Soft, nontender, mildly distended. MUSCULOSKELETAL: Deeply jaundiced, has 1+ bilateral pedal and ankle edema. NEUROLOGIC: The patient is moving all extremities, but is semi-comatose. SKIN: Moist. PSYCHIATRIC: The patient is very lethargic, but does respond to deep touch stimuli. LABORATORY DATA: Reveals a white count of 12.8; hemoglobin 8.3; platelet count 140,000. Sodium is 1 43, K is 3.6, chloride is 100, CO2 is 32, BUN is 11, creatinine 0.7, glucose 108. Ammonia down from 131. Albumin 2.4, AST 105 down from 160, ALT 49 from 48. INR of 2.11. ABG shows a pH o f 7.56, pCO2 of 36, pO2 of 64 on room air. ASSESSMENT NOTES AND PLAN: The patient has significant hepatic encephalopathy with coagulopathy who has been recently in the [facility] liver unit for assessment of for liver transplant. Additional informa tion from [facility] is still pending and depending upon our consultation with Dr. Amato. In the meanti me, the patient has been started on antibiotics. Septic workup was done. Procalcitonin was ordered. Albumin supplementation and resuscitation done. CAT scan of the abdomen and pelvis were also order ed. We will continue to see the ammonia levels and lactic acid level. The patient does not have ove rt signs of bleeding at this time. Hemoglobin is stable, platelet count is stable. NG tube was plac ed and rifaximin started. Ammonia level has started to go down and level of consciousness hopefully will improve. The target will be to reach euvolemia, euglycemia, normothermia and O2 sats should be kept above 90%. I spoke to the family who are actively discussing the patient to be made a DNR /DNI and comfort measures alone. oncology, palliative nurse is going to be talking with the cyndi hilario as well. I spoke at length to the entire family and the daughter, , as well and explained to them the overall prognosis of the patient and in my opinion, I thought that the patient was so sic k at this point it was just a matter of time and I predicted that this could be somewhere between the next 14-16 hours. We will continue to monitor the patient. Overall prognosis is poor. Comfort dick sures would be in order at this point in time. I will speak to all the members of the team. Danilo Patel MD cc: [id number] TT: 04/04/2017 00:34:38 Confirmation # [id number] Dictation # [id number] nv 04/04/2017 06:33:38
[2017-04-05] MEDS ORDERED: Pneumococcal 23-Valent Vaccine IM ONE (10:00)
--- NOTE | 2017-04-05 11:52 | CP.PCM.DIS ---
<LillianClaudia - Last Filed: 04/05/17 11:48> Provider - Provider Date of Admission: 04/02/17 23:22 Attending physician: Joe Sanchez MD Primary care physician: Nagi Damon MD Consults: Palliative Gi- Dr Yue junior/onc: Dr Patel Time Spent in preparation of Discharge (in minutes): 60 Diagnosis - Discharge Diagnosis (1) SIRS (systemic inflammatory response syndrome) Status: Acute (2) Hepatic encephalopathy Status: Acute (3) End stage liver disease Status: Chronic (4) Pancreatic cancer Status: Chronic Hospital Course - Lab Results Lab Results: Most Recent Lab Values WBC 12.8 10^3/ul (4.5-11.0) H 04/03/17 06:00 RBC 2.45 10^6/uL (3.5-6.1) L 04/03/17 06:00 Hgb 8.3 gm/dL (12.0-16.0) L 04/03/17 06:00 Hct 24.7 % (36.0-48.0) L 04/03/17 06:00 MCV 100.8 fL (80.0-105.0) 04/03/17 06:00 MCH 33.9 pg (25.0-35.0) 04/03/17 06:00 MCHC 33.6 g/dl (31.0-37.0) 04/03/17 06:00 RDW 22.2 % (11.5-14.5) H 04/03/17 06:00 Plt Count 140 10^3/uL (120.0-450.0) 04/03/17 06:00 MPV 10.5 fl (7.0-11.0) 04/03/17 06:00 Gran % 86.9 % (50.0-68.0) H 04/02/17 19:30 Lymph % (Auto) 6.3 % (22.0-35.0) L 04/02/17 19:30 [place] % (Auto) 6.6 % (1.0-6.0) H 04/02/17 19:30 Eos % (Auto) 0.1 % (1.5-5.0) L 04/02/17 19:30 Baso % (Auto) 0.1 % (0.0-3.0) 04/02/17 19:30 Gran # 11.94 (1.4-6.5) H 04/02/17 19:30 Lymph # 0.9 (1.2-3.4) L 04/02/17 19:30 [place] # 0.9 (0.1-0.6) H 04/02/17 19:30 Eos # 0.0 (0.0-0.7) 04/02/17 19:30 Baso # 0.01 K/mm3 (0.0-2.0) 04/02/17 19:30 PT 22.8 Seconds (9.9-11.8) H 04/03/17 05:15 INR 2.11 (0.93-1.08) H 04/03/17 05:15 APTT 41.8 Seconds (23.7-30.8) H 04/02/17 19:30 pCO2 36 mm/Hg (35-45) 04/02/17 21:00 pO2 65.0 mm/Hg (80-100) L 04/02/17 21:00 HCO3 32.2 mmol/L (21-28) H 04/02/17 21:00 ABG pH 7.56 (7.35-7.45) H 04/02/17 21:00 ABG Total CO2 33.3 mmol.L (22-28) H 04/02/17 21:00 ABG O2 Saturation 98.8 % (95-98) H 04/02/17 21:00 ABG O2 Content 10.5 ML/dl (15-23) L 04/02/17 21:00 ABG Base Excess 9.3 mmol/L (-2.0-3.0) H 04/02/17 21:00 ABG Hemoglobin 7.8 g/dL (11.7-17.4) L 04/02/17 21:00 ABG Carboxyhemoglobin 3.7 % (0.5-1.5) H 04/02/17 21:00 POC ABG HHb (Measured) 1.2 % (0-5) 04/02/17 21:00 ABG Methemoglobin 0.0 % (0.0-3.0) 04/02/17 21:00 ABG O2 Capacity 10.6 mL/dl (16-24) L 04/02/17 21:00 Hgb O2 Saturation 95.1 % (95.0-98.0) 04/02/17 21:00 FiO2 21.0 % 04/02/17 21:00 Sodium 143 mmol/L (132-148) 04/03/17 06:00 Potassium 3.6 mmol/L (3.6-5.0) 04/03/17 06:00 Chloride 100 mmol/L (95-110) 04/03/17 06:00 Carbon Dioxide 32 mmol/L (21-33) 04/03/17 06:00 Anion Gap 15 (10-20) 04/03/17 06:00 BUN 11 mg/dL (7-21) 04/03/17 06:00 Creatinine 0.7 mg/dL (0.5-1.4) 04/03/17 06:00 Est GFR ( Amer) > 60 04/03/17 06:00 Est GFR (Non-Af Amer) > 60 04/03/17 06:00 POC Glucose (mg/dL) 108 mg/dL (65-110) 04/03/17 08:17 Random Glucose 74 mg/dL (70-110) 04/03/17 06:00 Calcium 8.6 mg/dL (8.4-10.5) 04/03/17 06:00 Total Bilirubin 16.7 mg/dL (0.2-1.3) H 04/03/17 06:00 AST 105 U/L (15-39) H 04/03/17 06:00 ALT 49 U/L (7-56) 04/03/17 06:00 Alkaline Phosphatase 84 U/L (38-133) 04/03/17 06:00 Ammonia 84 umol/L (9-33) H 04/03/17 07:05 Total Protein 6.9 g/dL (5.8-8.3) 04/03/17 06:00 Albumin 2.4 g/dL (3.0-4.8) L 04/03/17 06:00 Globulin 4.4 gm/dL 04/03/17 06:00 Albumin/Globulin Ratio 0.5 (1.1-1.8) L 04/03/17 06:00 Lipase < 10 U/L (23-300) L 04/02/17 19:30 Beta HCG, Quant < 2.39 mIU/mL (0-6.15) 04/03/17 08:50 Blood Type O POSITIVE 04/02/17 19:30 Antibody Screen Negative 04/02/17 19:30 BBK History Checked Patient has bt 04/02/17 19:30 - Hospital Course Hospital Course: Patient is a 46 y/o with pmh of pancreatic cancer s/p Whipple procedure, s/p chemotherapy, ESLD, CAD, gastric wall tear s/p repair, asthma, Hepatic encephalopathy presented with AMS secondary to hyperamonium. On admision patient 's ammonia level was elevated. As per patient's family patient was recently discharged from [facility] and didn't pecan picker her medications from pharmacy. On admission, patient was minimally responsive. Patient was stabilized, received IV hydration and suppository lactulose. Patient was also started on broad- spectrum antibiotics fro SIRS. Patient's mental status worsened in the AM and had to be transferred to ICU. In the ICU, patient's family decided to follow patient's wish and make patient DNI/DNR with hospice care only. On 04/04, patient was discharged to hospice care. - Date & Time of H&P Date of H&P: 04/03/17 Time of H&P: 04:04 Discharge Exam - Head Exam Head Exam: NORMOCEPHALIC - Eye Exam Eye Exam: Scleral icterus Pupil Exam: Fixed, Miosis - ENT Exam ENT Exam: Mucous Membranes Dry - Neck Exam Neck exam: Normal Inspection - Respiratory Exam Respiratory Exam: Clear to PA & Lateral, NORMAL BREATHING PATTERN, UNREMARKABLE. absent: Rales, Rhonchi, Wheezes, Respiratory Distress, Stridor - Cardiovascular Exam Cardiovascular Exam: REGULAR RHYTHM, +S1, +S2 - GI/Abdominal Exam GI & Abdominal Exam: Distended, Firm, Normal Bowel Sounds, Rigid, Unremarkable. absent: Guarding, Tenderness Additional comments: + fluid wave, clean gauze over the right side of the abdomen. - Extremities Exam Extremities exam: normal inspection - Neurological Exam Neurological exam: Altered Additional comments: obtunded, not a&ox3, response to deep chest rub. Non verbal. - Skin Skin Exam: Dry, Intact Additional comments: + jaundice Discharge Plan - Follow Up Plan Condition: FAIR Disposition: HOSPICE - MEDICAL FACILITY Instructions: Hospice (DC) Additional Instructions: follow orders in hospice care Referrals: Daniel RODRIGUEZ,MD Joe [Staff Provider] - <Nagi Damon - Last Filed: 04/21/17 19:01> Provider - Provider Date of Admission: 04/02/17 23:22 Attending physician: Joe Sanchez MD Primary care physician: Nagi Damon MD Hospital Course - Lab Results Lab Results: Most Recent Lab Values WBC 12.8 10^3/ul (4.5-11.0) H 04/03/17 06:00 RBC 2.45 10^6/uL (3.5-6.1) L 04/03/17 06:00 Hgb 8.3 gm/dL (12.0-16.0) L 04/03/17 06:00 Hct 24.7 % (36.0-48.0) L 04/03/17 06:00 MCV 100.8 fL (80.0-105.0) 04/03/17 06:00 MCH 33.9 pg (25.0-35.0) 04/03/17 06:00 MCHC 33.6 g/dl (31.0-37.0) 04/03/17 06:00 RDW 22.2 % (11.5-14.5) H 04/03/17 06:00 Plt Count 140 10^3/uL (120.0-450.0) 04/03/17 06:00 MPV 10.5 fl (7.0-11.0) 04/03/17 06:00 Gran % 86.9 % (50.0-68.0) H 04/02/17 19:30 Lymph % (Auto) 6.3 % (22.0-35.0) L 04/02/17 19:30 [place] % (Auto) 6.6 % (1.0-6.0) H 04/02/17 19:30 Eos % (Auto) 0.1 % (1.5-5.0) L 04/02/17 19:30 Baso % (Auto) 0.1 % (0.0-3.0) 04/02/17 19:30 Gran # 11.94 (1.4-6.5) H 04/02/17 19:30 Lymph # 0.9 (1.2-3.4) L 04/02/17 19:30 [place] # 0.9 (0.1-0.6) H 04/02/17 19:30 Eos # 0.0 (0.0-0.7) 04/02/17 19:30 Baso # 0.01 K/mm3 (0.0-2.0) 04/02/17 19:30 PT 22.8 Seconds (9.9-11.8) H 04/03/17 05:15 INR 2.11 (0.93-1.08) H 04/03/17 05:15 APTT 41.8 Seconds (23.7-30.8) H 04/02/17 19:30 pCO2 36 mm/Hg (35-45) 04/02/17 21:00 pO2 65.0 mm/Hg (80-100) L 04/02/17 21:00 HCO3 32.2 mmol/L (21-28) H 04/02/17 21:00 ABG pH 7.56 (7.35-7.45) H 04/02/17 21:00 ABG Total CO2 33.3 mmol.L (22-28) H 04/02/17 21:00 ABG O2 Saturation 98.8 % (95-98) H 04/02/17 21:00 ABG O2 Content 10.5 ML/dl (15-23) L 04/02/17 21:00 ABG Base Excess 9.3 mmol/L (-2.0-3.0) H 04/02/17 21:00 ABG Hemoglobin 7.8 g/dL (11.7-17.4) L 04/02/17 21:00 ABG Carboxyhemoglobin 3.7 % (0.5-1.5) H 04/02/17 21:00 POC ABG HHb (Measured) 1.2 % (0-5) 04/02/17 21:00 ABG Methemoglobin 0.0 % (0.0-3.0) 04/02/17 21:00 ABG O2 Capacity 10.6 mL/dl (16-24) L 04/02/17 21:00 Hgb O2 Saturation 95.1 % (95.0-98.0) 04/02/17 21:00 FiO2 21.0 % 04/02/17 21:00 Sodium 143 mmol/L (132-148) 04/03/17 06:00 Potassium 3.6 mmol/L (3.6-5.0) 04/03/17 06:00 Chloride 100 mmol/L (95-110) 04/03/17 06:00 Carbon Dioxide 32 mmol/L (21-33) 04/03/17 06:00 Anion Gap 15 (10-20) 04/03/17 06:00 BUN 11 mg/dL (7-21) 04/03/17 06:00 Creatinine 0.7 mg/dL (0.5-1.4) 04/03/17 06:00 Est GFR ( Amer) > 60 04/03/17 06:00 Est GFR (Non-Af Amer) > 60 04/03/17 06:00 POC Glucose (mg/dL) 108 mg/dL (65-110) 04/03/17 08:17 Random Glucose 74 mg/dL (70-110) 04/03/17 06:00 Calcium 8.6 mg/dL (8.4-10.5) 04/03/17 06:00 Total Bilirubin 16.7 mg/dL (0.2-1.3) H 04/03/17 06:00 AST 105 U/L (15-39) H 04/03/17 06:00 ALT 49 U/L (7-56) 04/03/17 06:00 Alkaline Phosphatase 84 U/L (38-133) 04/03/17 06:00 Ammonia 84 umol/L (9-33) H 04/03/17 07:05 Total Protein 6.9 g/dL (5.8-8.3) 04/03/17 06:00 Albumin 2.4 g/dL (3.0-4.8) L 04/03/17 06:00 Globulin 4.4 gm/dL 04/03/17 06:00 Albumin/Globulin Ratio 0.5 (1.1-1.8) L 04/03/17 06:00 Lipase < 10 U/L (23-300) L 04/02/17 19:30 Beta HCG, Quant < 2.39 mIU/mL (0-6.15) 04/03/17 08:50 Blood Type O POSITIVE 04/02/17 19:30 Antibody Screen Negative 04/02/17 19:30 BBK History Checked Patient has bt 04/02/17 19:30 Attending/Attestation - Attestation I have personally seen and examined this patient.: Yes I have fully participated in the care of the patient.: Yes I have reviewed all pertinent clinical information, including history, physical exam and plan: Yes Notes (Text): 04/21/17 19:01 Medical record note made by the resident after discussion with my direction and input after the patient was personally seen and examined by me. I have reviewed the chart and agree that the record accurately reflects by personal performance of the history, physical exam, data review, and medical decision-making, in the course for the patient. I have also personally directed the plan of care.
--- NOTE | 2017-04-05 12:06 | CP.PCM.PN ---
Subjective - Date & Time of Evaluation Date of Evaluation: 04/05/17 Time of Evaluation: 07:05 - Subjective Subjective: Medicine progress note for Dr Salcedo and Dr Damon Patient Objective - Vital Signs/Intake and Output Vital Signs (last 24 hours): Temp Pulse Resp BP Pulse Ox 98.4 F 108 H 20 93/51 L 94 L 04/03/17 12:00 04/03/17 14:24 04/03/17 14:24 04/03/17 14:24 04/03/17 14:24 - Labs Labs: 04/03/17 06:00 04/03/17 06:00 PT 22.8 Seconds (9.9-11.8) H 04/03/17 05:15 INR 2.11 (0.93-1.08) H 04/03/17 05:15 APTT 41.8 Seconds (23.7-30.8) H 04/02/17 19:30 Assessment and Plan (1) SIRS (systemic inflammatory response syndrome) Status: Acute (2) Hepatic encephalopathy Status: Acute (3) End stage liver disease Status: Chronic (4) Pancreatic cancer Status: Chronic
== END 2017-04-03 15:11 | disposition hospice, inpatient (51) | DRG 441 ==
LOC: ED 16:54 → ERH 23:22 → 2RNO 04-03 02:43 → CCU 04-03 09:36 → 3RSO 04-03 15:11
PROVIDERS: ADMIT Internal Medicine; ATTEND Internal Medicine
DX: K72.00 Acute and subacute hepatic failure without coma (principal); A41.9 Sepsis, unspecified organism; K74.60 Unspecified cirrhosis of liver; Z85.07 Personal history of malignant neoplasm of pancreas; D64.9 Anemia, unspecified; J45.909 Unspecified asthma, uncomplicated; F32.9 Major depressive disorder, single episode, unspecified; I25.10 Atherosclerotic heart disease of native coronary artery without angina pectoris; Z66 Do not resuscitate; Z51.5 Encounter for palliative care; Z90.411 Acquired partial absence of pancreas; Z92.21 Personal history of antineoplastic chemotherapy; Z87.891 Personal history of nicotine dependence; Z83.3 Family history of diabetes mellitus; Z82.49 Family history of ischemic heart disease and other diseases of the circulatory system

== ENCOUNTER 2017-04-03 16:48 | Inpatient (IN) | payer BC, OTHER ==
[2017-04-03] MEDS ORDERED: Morphine PCA 1 mg/ml (25ml) 25 ML IV PRN (16:53)
[2017-04-05] MEDS: Morphine PCA 1 mg/ml (25ml) 25 ML IV PRN ×2 (03:29→16:30)
--- NOTE | 2017-04-05 06:43 | CP.PCM.HP ---
<Claudia Snyder - Last Filed: 04/05/17 12:00> History of Present Illness - History of Present Illness History of Present Illness: Patient is a 46 y/o with pmh of pancreatic cancer s/p Whipple procedure, s/p chemotherapy, ESLD, CAD, gastric wall tear s/p repair, asthma, Hepatic encephalopathy presented with AMS secondary to hyperammonium. On admission patient's ammonia level was elevated. As per patient's family patient was recently discharged from [facility] and didn't pickle maker her medications from pharmacy. On admission, patient was minimally responsive. Patient was stabilized , and multiple services were consulted. Patient's family decided to follow patient's wish on Saturday, and made patient DNI/DNR/Hospice care only. Patient is currently a hospice patient inhouse, and will continue to follow patient. PMH: As stated above PSH: Whipple (06/02), , repair of gastric wall tear Family Hx: DM, CAD Social: former tobacco, no illicit drug or alcohol use as per family. Present on Admission - Present on Admission Any Indicators Present on Admission: No History of DVT/PE: No History of Uncontrolled Diabetes: No Urinary Catheter: No Decubitus Ulcer Present: No Review of Systems - Review of Systems Review of Systems: unable to assess due to mental status. Past Patient History - Infectious Disease Hx of Infectious Diseases: None - Tetanus Immunizations Tetanus Immunization: Unknown - Past Medical History & Family History Past Medical History?: Yes - Past Social History Smoking Status: Former Smoker Alcohol: None Drugs: Denies Home Situation {Lives}: With Family - CARDIAC Hx Cardiac Disorders: No - PULMONARY Hx Respiratory Disorders: Yes Hx Asthma: Yes - NEUROLOGICAL Hx Neurological Disorder: No - HEENT Hx HEENT Problems: No - RENAL Hx Chronic Kidney Disease: No - ENDOCRINE/METABOLIC Hx Endocrine Disorders: No - HEMATOLOGICAL/ONCOLOGICAL Hx Blood Disorders: Yes Hx Anemia: Yes (current) Hx Cancer: Yes - INTEGUMENTARY Hx Dermatological Problems: No - MUSCULOSKELETAL/RHEUMATOLOGICAL Hx Falls: No - GASTROINTESTINAL Hx Gastrointestinal Disorders: Yes Hx Gall Bladder Disease: Yes (biliary stent) Hx Pancreatitis: Yes (pancreatic cancer) - GENITOURINARY/GYNECOLOGICAL Hx Genitourinary Disorders: No - PSYCHIATRIC Hx Substance Use: No - SURGICAL HISTORY Hx Surgeries: Yes (whipple, x2, abd internal clamp) Hx Cholecystectomy: (biliary stent) - ANESTHESIA Hx Anesthesia: Yes Hx Anesthesia Reactions: No Hx Malignant Hyperthermia: No Meds Allergies/Adverse Reactions: Allergies Allergy/AdvReac Type Severity Reaction Status Date / Time No Known Allergies Allergy Verified 04/02/17 17:24 Physical Exam - Constitutional Appears: No Acute Distress, Older Than Stated Age, Cachectic, Chronically Ill - Head Exam Head Exam: ATRAUMATIC, NORMAL INSPECTION, NORMOCEPHALIC - Eye Exam Eye Exam: Scleral icterus - ENT Exam ENT Exam: Mucous Membranes Dry - Neck Exam Neck exam: Positive for: Normal Inspection - Respiratory Exam Respiratory Exam: Clear to Auscultation Bilateral, NORMAL BREATHING PATTERN. absent: Rales, Rhonchi, Wheezes, Respiratory Distress, Stridor - Cardiovascular Exam Cardiovascular Exam: Tachycardia, REGULAR RHYTHM, RRR - GI/Abdominal Exam GI & Abdominal Exam: Distended, Normal Bowel Sounds, Soft. absent: Guarding, Tenderness - Extremities Exam Extremities exam: Positive for: pedal edema - Back Exam Back exam: NORMAL INSPECTION - Neurological Exam Additional comments: Obtunded, doesn't respond to verbal command. respond to deep chest rub. - Skin Skin Exam: Dry, Warm Additional comments: + jaundice. Results - Vital Signs Recent Vital Signs: Last Vital Signs Temp 98.6 F 04/04/17 16:00 Pulse 111 H 04/04/17 16:00 Resp 22 04/04/17 16:00 BP 109/55 L 04/04/17 16:00 Pulse Ox 94 L 04/04/17 16:00 Assessment & Plan - Assessment and Plan (Free Text) Assessment: Patient is a 46 y/o with pmh of pancreatic cancer s/p Whipple procedure, s/p chemotherapy, ESLD, CAD, gastric wall tear s/p repair, asthma, Hepatic encephalopathy presented with worsening hepati encephalopathy. Plan: 1) Comfort care only 2) DNI/DNR/Hospice 3) Morphine pump in place 4) ativan and morphine prn 5) tylenol prn for pain Patient seen, examined, discussed with Dr Salcedo. - Date & Time Date: 04/04/17 Time: 07:55 <Mirza Salcedo - Last Filed: 04/19/17 08:31> Results - Vital Signs Recent Vital Signs: Last Vital Signs Temp 96.6 F L 04/13/17 06:00 Pulse 84 05/19/17 16:00 Resp 16 04/07/17 06:00 BP 106/64 04/07/17 06:00 Pulse Ox 100 04/05/17 16:00 Attending/Attestation - Attestation I have personally seen and examined this patient.: Yes I have fully participated in the care of the patient.: Yes I have reviewed all pertinent clinical information: Yes Notes (Text): 04/19/17 08:31 Medical record note made by the resident after discussion with my direction and input after the patient was personally seen and examined by me. I have reviewed the chart and agree that the record reflects my personal performance of history, physical, data review and course for the patient that I have planned.
--- NOTE | 2017-04-05 08:09 | CP.PCM.CON ---
History of Present Illness - History of Present Illness History of Present Illness: Palliative consult requested by Dr Damon Reason:Hospice/ End of life counseling HPI:46-year-old women admitted with hepatorenal failure, AMS, intractable pain. History of pancreatic cancer s/p chemotherapy, s/p Whipple procedure. PMH: pancreatic cancer s/p Whipple, s/p chemotherapy, liver cirrhosis, HTN, ascites. Social History: Nonsmoker, no alcohol or drug use. Patients daughter Saman Mckeon is decision maker Family History: Non-contributory Advance Care Planning: The patient did not have an Advance Directive, She is DNR /DNI as per Saman WHITLEY Review of Systems: Unconscious Past Patient History - Infectious Disease Hx of Infectious Diseases: None - Tetanus Immunizations Tetanus Immunization: Unknown - Past Social History Smoking Status: Never Smoked - CARDIAC Hx Cardiac Disorders: No - PULMONARY Hx Respiratory Disorders: Yes Hx Asthma: Yes - NEUROLOGICAL Hx Neurological Disorder: No - HEENT Hx HEENT Problems: No - RENAL Hx Chronic Kidney Disease: No - ENDOCRINE/METABOLIC Hx Endocrine Disorders: No - HEMATOLOGICAL/ONCOLOGICAL Hx Blood Disorders: Yes Hx Anemia: Yes (current) Hx Cancer: Yes - INTEGUMENTARY Hx Dermatological Problems: No - MUSCULOSKELETAL/RHEUMATOLOGICAL Hx Falls: No - GASTROINTESTINAL Hx Gastrointestinal Disorders: Yes Hx Gall Bladder Disease: Yes (biliary stent) Hx Pancreatitis: Yes (pancreatic cancer) - GENITOURINARY/GYNECOLOGICAL Hx Genitourinary Disorders: No - PSYCHIATRIC Hx Substance Use: No - SURGICAL HISTORY Hx Surgeries: Yes (whipple, x2, abd internal clamp) Hx Cholecystectomy: (biliary stent) - ANESTHESIA Hx Anesthesia: Yes Hx Anesthesia Reactions: No Hx Malignant Hyperthermia: No Meds Allergies/Adverse Reactions: Allergies Allergy/AdvReac Type Severity Reaction Status Date / Time No Known Allergies Allergy Verified 04/02/17 17:24 - Medications Medications: Current Medications Acetaminophen (Tylenol 650 Mg Supp) 650 mg RC Q4H PRN PRN Reason: Fever >100.4 F Morphine Sulfate (Morphine Die Sinking Machine Operator 1 Mg/Ml) 25 mls @ 2 mls/hr IV PRN PRN; Protocol ; 2 MG/HR PRN Reason: DIRECT SUPPORT PROFESSIONAL HOME HE[facility] PER MD ORDER Last Admin: 04/05/17 03:29 Dose: 2 mg/hr, 2 mls/hr Lorazepam (Ativan) 1 mg IVP Q6H PRN; Protocol PRN Reason: Anxiety/seizures Last Admin: 04/04/17 23:16 Dose: 1 mg Physical Exam - Constitutional Appears: Chronically Ill - Head Exam Head Exam: NORMAL INSPECTION - Eye Exam Eye Exam: Scleral icterus - ENT Exam ENT Exam: Normal Oropharynx - Neck Exam Neck exam: Positive for: Normal Inspection - Respiratory Exam Respiratory Exam: Decreased Breath Sounds, NORMAL BREATHING PATTERN - Cardiovascular Exam Cardiovascular Exam: Tachycardia, +S1, +S2 - GI/Abdominal Exam GI & Abdominal Exam: Diminished Bowel Sounds, Distended, Soft - Exam Additional comments: oliguria - Extremities Exam Extremities exam: Positive for: pedal pulses present Additional comments: 2 + bilateral lower extremity edema - Back Exam Back exam: NORMAL INSPECTION - Neurological Exam Neurological exam: Altered - Skin Skin Exam: Dry, Warm Additional comments: Jaundice - Additional Findings Additional findings: Palliative performance scale rating 20 % Results - Vital Signs Recent Vital Signs: Last Vital Signs Temp 98.6 F 04/04/17 16:00 Pulse 111 H 04/04/17 16:00 Resp 22 04/04/17 16:00 BP 109/55 L 04/04/17 16:00 Pulse Ox 94 L 04/04/17 16:00 Assessment & Plan - Assessment and Plan (Free Text) Assessment: 46-year-old female admitted to [facility] services for management of intractable pain,agitation. Patient appears to be in pain She is tachycardic, restless. Family at bedside. Signs of impending explained. Questions answered. End of life counseling and Spiritual counseling provided. Family appreciative of support Plan: Increase Morphine continuous infusion to 2 mg/hr Ativan 1 mg every 6 hours s needed for agitation Tylenol 65o mg every 4 hours for fever over 100F Suction as needed
--- NOTE | 2017-04-05 08:16 | CON ---
DATE: 04/04/2017 This is [facility] visit on hospice. For Dr. Patel. CHIEF COMPLAINT: Pancreatic cancer, end-stage, on hospice. HISTORY OF PRESENT ILLNESS: The patient is a 46-year-old female with multiple family members in the room being seen on the medical floor and now admitted to hospice after being diagnosed with worsening liver failure and pancreatic cancer. Being followed initially by Dr. Hilliard in [facility], status post Whipple procedure, with the patient's deterioration progressively with hospice now implemented as per family and patient's request. There was consideration for liver transplant; however, the over all prognosis is dismal. With this, the patient is resting comfortably in no acute distress with LEAD PRODUCER narcotic analgesics being given and comfort measures as per Peg , head start coordinator. PAST MEDICAL HISTORY: As above. Asthma, pancreatic cancer, status post Whipple procedure, depressio n. ALLERGIES: No known allergies. MEDICATIONS: At present include Ativan, morphine LEAD PRODUCER and Tylenol. FAMILY HISTORY AND SOCIAL HISTORY: The patient was a heavy smoker, but quit. Denies alcohol or drug use. Otherwise, noncontributory. REVIEW OF SYSTEMS: Essentially negative to questioning except as above. PHYSICAL EXAMINATION: VITAL SIGNS: At the computer system is down. Her vital signs are at a hard copy at the bedside. Ye day's vital signs include temperature 97.8, pulse 118, respirations 22, blood pressure 119/67, pu lse ox 99%. HEENT: Unremarkable. NECK: Supple. HEART: Tachy rate, regular rhythm. LUNGS: Occasional rhonchi. ABDOMEN: Soft. Minimally distended. EXTREMITIES: +1 edema. NEUROLOGIC: The patient was lethargic, but arousable to stimuli. SKIN: Mildly icteric. LABORATORY DATA: The patient's labs were not being done as per hospice and family's request. ASSESSMENT: End-stage pancreatic cancer, hepatic encephalopathy, with comfort measures to be impleme nted. PLAN: As above with LEAD PRODUCER narcotic analgesics and comfort measures as per Peg and patient's atte nding physician, Dr. Damon. We will adjust narcotic analgesics as indicated for comfort. Prognosi s for this patient is grave. Floyd Celena RODRIGUEZ cc: [phone] TT: 04/05/2017 00:22:10 Confirmation # [id number] Dictation # [id number] mn
--- NOTE | 2017-04-05 12:35 | CP.PCM.PN ---
Subjective - Date & Time of Evaluation Date of Evaluation: 04/05/17 Time of Evaluation: 09:00 - Subjective Subjective: Unresponsive, agonal breathing pattern Objective - Vital Signs/Intake and Output Vital Signs (last 24 hours): Temp Pulse Resp BP Pulse Ox 98.6 F 111 H 22 109/55 L 94 L 04/04/17 16:00 04/04/17 16:00 04/04/17 16:00 04/04/17 16:00 04/04/17 16:00 - Medications Medications: Current Medications Acetaminophen (Tylenol 650 Mg Supp) 650 mg RC Q4H PRN PRN Reason: Fever >100.4 F Morphine Sulfate (Morphine Rail Track Maintainer 1 Mg/Ml) 25 mls @ 2 mls/hr IV PRN PRN; Protocol ; 2 MG/HR PRN Reason: DEPUTY DIRECTOR PER MD ORDER Last Admin: 04/05/17 03:29 Dose: 2 mg/hr, 2 mls/hr Lorazepam (Ativan) 1 mg IVP Q6H PRN; Protocol PRN Reason: Anxiety/seizures Last Admin: 04/04/17 23:16 Dose: 1 mg - Constitutional Appears: No Acute Distress, Chronically Ill - Eye Exam Eye Exam: Scleral icterus - Respiratory Exam Respiratory Exam: Decreased Breath Sounds Additional comments: irregular breathing pattern - Cardiovascular Exam Cardiovascular Exam: Tachycardia, +S1, +S2 - GI/Abdominal Exam GI & Abdominal Exam: Distended, Soft, Diminished Bowel Sounds - Exam Additional comments: oliguria - Back Exam Back Exam: NORMAL INSPECTION - Neurological Exam Neurological Exam: Altered - Skin Additional comments: anasarca, jaundice Assessment and Plan - Assessment and Plan (Free Text) Assessment: 46 female with end stage pancreatic cancer. Patient under [facility] hospice services Plan: Morphine continuos infusion 2 mg/hr Ativan as needed for seizure/agitation Tylenol 650 mg suppository
--- NOTE | 2017-04-05 19:12 | CP.PCM.PN ---
<LillianClaudia - Last Filed: 04/05/17 19:09> Subjective - Date & Time of Evaluation Date of Evaluation: 04/05/17 Time of Evaluation: 07:35 - Subjective Subjective: Medicine progress note for Dr Salcedo and Dr Damon service. Patient is not responsive. Family at bedside , all questions were answered. Morphine pump at 2 mls/hr. Objective - Vital Signs/Intake and Output Vital Signs (last 24 hours): Temp Pulse Resp BP Pulse Ox 98.6 F 111 H 22 109/55 L 94 L 04/04/17 16:00 04/04/17 16:00 04/04/17 16:00 04/04/17 16:00 04/04/17 16:00 Intake and Output: 04/05/17 04/06/17 18:59 06:59 Intake Total 25 Balance 25 - Medications Medications: Current Medications Acetaminophen (Tylenol 650 Mg Supp) 650 mg RC Q4H PRN PRN Reason: Fever >100.4 F Morphine Sulfate (Morphine Senior Sales Consultant 1 Mg/Ml) 25 mls @ 2 mls/hr IV PRN PRN; Protocol ; 2 MG/HR PRN Reason: GLASS BLOCK INSTALLER PER MD ORDER Last Admin: 04/05/17 16:30 Dose: 2 mg/hr, 2 mls/hr Lorazepam (Ativan) 1 mg IVP Q6H PRN; Protocol PRN Reason: Anxiety/seizures Last Admin: 04/04/17 23:16 Dose: 1 mg - Constitutional Appears: No Acute Distress, Cachectic, Chronically Ill - Eye Exam Eye Exam: Scleral icterus - ENT Exam ENT Exam: Mucous Membranes Moist - Neck Exam Neck Exam: Normal Inspection - Respiratory Exam Respiratory Exam: Clear to Ausculation Bilateral, NORMAL BREATHING PATTERN. absent: Rales, Rhonchi, Wheezes, Respiratory Distress, Stridor - Cardiovascular Exam Cardiovascular Exam: REGULAR RHYTHM, +S1, +S2. absent: Bradycardia, Tachycardia - GI/Abdominal Exam GI & Abdominal Exam: Distended, Soft, Normal Bowel Sounds - Extremities Exam Extremities Exam: Normal Inspection - Neurological Exam Additional comments: unresponsive. - Skin Skin Exam: Dry, Warm Additional comments: + jaundice. Assessment and Plan - Assessment and Plan (Free Text) Assessment: Patient is a 46 y/o with pmh of pancreatic cancer s/p Whipple procedure, s/p chemotherapy, ESLD, CAD, gastric wall tear s/p repair, asthma, Hepatic encephalopathy presented with worsening hepatic encephalopathy. Currently unresponsive. Plan: 1) Comfort care only 2) DNI/DNR/Hospice 3) Morphine pump in place 4) ativan prn 5) tylenol prn for fever Patient seen, examined, discussed with Dr Damon. <Nagi Damon - Last Filed: 04/21/17 19:01> Objective - Vital Signs/Intake and Output Vital Signs (last 24 hours): Temp Pulse Resp BP Pulse Ox 96.6 F L 84 16 106/64 100 04/13/17 06:00 04/05/17 16:00 04/07/17 06:00 04/07/17 06:00 04/05/17 16:00 Attending/Attestation - Attestation I have personally seen and examined this patient.: Yes I have fully participated in the care of the patient.: Yes I have reviewed all pertinent clinical information, including history, physical exam and plan: Yes Notes (Text): 04/21/17 19:01 Medical record note made by the resident after discussion with my direction and input after the patient was personally seen and examined by me. I have reviewed the chart and agree that the record accurately reflects by personal performance of the history, physical exam, data review, and medical decision-making, in the course for the patient. I have also personally directed the plan of care.
[2017-04-05 19:21] VITALS: PULSE 84; O2SAT 100
[2017-04-06] MEDS: Morphine PCA 1 mg/ml (25ml) 25 ML IV PRN (05:21)
--- NOTE | 2017-04-06 13:21 | PN ---
DATE: 04/06/2017 I saw her resting comfortably with family present. She is in hospice care. She has a morphine pump 2 mL an hour. She is awake at this time, very jaundiced. She has pancreatic cancer, hepatic encephalopathy and definitely worsening. She is on comfort care, DNR/DNI, hospice, morphine pump, Ativan as needed. She is in no acute distress at this time, talking with family. PHYSICAL EXAMINATION: VITAL SIGNS: 98 temp, 84 pulse, 140/50 blood pressure, 18 respiratory rate, 100 % O2 sat. HEENT: She is very jaundiced. HEART: Regular rate. LUNGS: Decreased breath sounds. ABDOMEN: Decreased bowel sounds. EXTREMITIES: No edema. She is on hospice. To make sure she is pain free and comfortable as possible. Answered many questions from family. Tried to make them feel comfortable too. For Dr. Salcedo. Suman cMelroy DO cc: [id number] TT: 04/06/2017 13:19:58 Confirmation # [id number] Dictation # [id number] MTDD
[2017-04-06] MEDS ORDERED: HYDROmorphone 0.2 mg/ml (25ml) 25 ML IV PRN (17:43)
[2017-04-06] MEDS: HYDROmorphone 0.2 mg/ml (25ml) 25 ML IV PRN (18:08)
--- NOTE | 2017-04-07 10:46 | PN ---
DATE: 04/07/[address] and Dr[address] Damon, who are off this weekend. She is in hospice at this time. There was a problem last night with the pharmacy running out of marianne hatfield and we had to make a decision to change agent to Dilaudid in a PUBLIC AREA ATTENDANT pump. She is still resting ve ry quietly and not in any appreciative pain, as per the family. She is resting comfortably in bed, s till very jaundiced. She is talking a little bit and she is calm and no pain. PHYSICAL EXAMINATION: VITAL SIGNS: Temp 98, 84 pulse, 140/50 blood pressure, 18 respiratory rate, 100% O2 sat on nasal can nula. HEENT: Head is atraumatic, normocephalic. HEART: Regular rate. LUNGS: Decreased breath sounds. ABDOMEN: Soft. Positive bowel sounds. EXTREMITIES: No edema. NEUROLOGIC: Very lethargic, very medicated. She is here for pancreatic cancer, hepatic encephalopathy and pain, so we will continue keeping her a s comfortable and as pain free as possible. Made an adjustment in her medications to Dilaudid PUBLIC AREA ATTENDANT pu mp. Discussed with the pharmacist and the nurse last night, and hopefully she will continue to stay as comfortable and as pain free as possible on hospice in the hospital. Suman Mcelroy DO cc: [id number] TT: 04/07/2017 10:46:21 Confirmation # [id number] Dictation # [id number] en
[2017-04-07] MEDS: HYDROmorphone 0.2 mg/ml (25ml) 25 ML IV PRN (10:51)
[2017-04-07 19:42] VITALS: BP 106/64; RESP 16
[2017-04-08] MEDS: HYDROmorphone 0.2 mg/ml (25ml) 25 ML IV PRN ×2 (03:30→20:18)
--- NOTE | 2017-04-08 07:15 | CP.PCM.PN ---
<LillianClaudia - Last Filed: 04/08/17 16:23> Subjective - Date & Time of Evaluation Date of Evaluation: 04/08/17 Time of Evaluation: 07:40 - Subjective Subjective: Medicine progress note for Dr Salcedo and Dr Damon Patient responds to name and pain. As per patient's family patient was able to get up and sit at the edge of the bed yesterday, patient was also nodding when family asked if patient was in pain. Otherwise patient appears comfortable. Family worried patient's not eating, and worried patient may be constipated. 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 absent: Rales, Rhonchi, Wheezes, Respiratory Distress, Stridor - Cardiovascular Exam Cardiovascular Exam: REGULAR RHYTHM, +S1, +S2 - GI/Abdominal Exam GI & Abdominal Exam: Guarding, Soft, Tenderness, Normal Bowel Sounds. absent: Distended - Extremities Exam Extremities Exam: Normal Inspection - Neurological Exam Neurological Exam: Alert Additional comments: Obtunded, minimally responds to pain and name. - Skin Skin Exam: Dry, Warm Assessment and Plan - Assessment and Plan (Free Text) Assessment: Patient is a 46 y/o with pmh of pancreatic cancer s/p Whipple procedure, s/p chemotherapy, ESLD, CAD, gastric wall tear s/p repair, asthma, Hepatic encephalopathy presented with worsening hepatic encephalopathy. Plan: 1) Comfort care only 2) DNI/DNR/Hospice 3) Dilaudid pump in place 4) ativan prn 5) tylenol prn for fever Patient seen, examined, discussed with Dr Damon. <Nagi Damon - Last Filed: 04/21/17 19:07> Objective - Vital Signs/Intake and Output Vital Signs (last 24 hours): Temp Pulse Resp BP Pulse Ox 96.6 F L 84 16 106/64 100 04/13/17 06:00 04/05/17 16:00 04/07/17 06:00 04/07/17 06:00 04/05/17 16:00 Attending/Attestation - Attestation I have personally seen and examined this patient.: Yes I have fully participated in the care of the patient.: Yes I have reviewed all pertinent clinical information, including history, physical exam and plan: Yes Notes (Text): 04/21/17 19:07 Medical record note made by the resident after discussion with my direction and input after the patient was personally seen and examined by me. I have reviewed the chart and agree that the record accurately reflects by personal performance of the history, physical exam, data review, and medical decision-making, in the course for the patient. I have also personally directed the plan of care.
--- NOTE | 2017-04-08 09:07 | PN ---
DATE: 04/05/2017 The patient is in room 370, bed 2. This is a 46-year-old female with end-stage liver failure and a background history of having had resection with Whipple procedure for carcinoma of the pancreas. Received adjuvant chemotherapy post-surgery. Went into liver failure about 6 weeks ago, etiology of which is unclear. Was in the liver unit [facility] and the patient was being checked out for possible liver transplant, but the overwhelming issues medically, and especially with a history of having had pancreatic cancer less than 6 months ago, she was not deemed to be a good candidate. The patient was readmitted to [facility] as she was progressively worsening and went into hepatic coma and currently is on hospice. SUBJECTIVE: The patient is unresponsive and has an agonal breathing pattern on HEAD OF INSIGHT. The family is by the bedside. I had a detailed discussion with the patient's mom and her daughter as well who were at the bedside. Both of them had several questions for me, which were answered to the best of my ability. I also offered to the family that if she needs to have a Villavicencio catheter inserted so she does not have to feel uncomfortable when they had to change her, especially when she has to urinate and the family was under the impression right now that we should just try not to move her and keep her comfortable as best as is possible. I agreed with them and will continue the HEAD OF INSIGHT, which has been increased to 2 mL an hour or 2 mg an hour. The patient is also getting in addition to that Ativan q.6 hours along with Tylenol p.r.n. PHYSICAL EXAMINATION: GENERAL: The patient is agonal, deeply icteric. Her eyes are open now. LUNGS: Relatively clear. HEART: The patient is tachycardic. ABDOMEN: Distended with diminished bowel sounds. EXTREMITIES: Reveal bilateral leg edema. ASSESSMENT: As I mentioned, the patient is terminal at this point. Our goal is comfort measures only and continuing HEAD OF INSIGHT for pain control. Danilo Patel MD cc: [id number] TT: 04/05/2017 18:21:01 Confirmation # [id number] Dictation # [id number] gretchen OLIVAS
--- NOTE | 2017-04-08 11:09 | CP.PCM.PN ---
Subjective - Date & Time of Evaluation Date of Evaluation: 04/07/17 Time of Evaluation: 20:00 - Subjective Subjective: Patient able to respond to name. Denies any pain or acute problems. Family and fiance at bed side Objective - Vital Signs/Intake and Output Vital Signs (last 24 hours): Temp Pulse Resp BP Pulse Ox 98.7 F 84 16 106/64 100 04/07/17 06:00 04/05/17 16:00 04/07/17 06:00 04/07/17 06:00 04/05/17 16:00 Intake and Output: 04/08/17 04/08/17 06:59 18:59 Intake Total 100 Balance 100 - Medications Medications: Current Medications Acetaminophen (Tylenol 650 Mg Supp) 650 mg RC Q4H PRN PRN Reason: Fever >100.4 F Hydromorphone HCl (Dilaudid 0.2 Mg/Ml Building Certifier) 25 mls @ 0.3 mls/hr IV PRN PRN PRN Reason: BOSTON CUTTER PER MD ORDER Last Admin: 04/08/17 03:30 Dose: 0.3 mls/hr Lorazepam (Ativan) 1 mg IVP Q6H PRN; Protocol PRN Reason: Anxiety/seizures Last Admin: 04/08/17 01:43 Dose: 1 mg - Constitutional Appears: No Acute Distress - Eye Exam Eye Exam: Scleral icterus - GI/Abdominal Exam GI & Abdominal Exam: Soft. absent: Tenderness - Extremities Exam Extremities Exam: Full ROM, Normal Capillary Refill, Normal Inspection. absent : Joint Swelling, Pedal Edema Assessment and Plan - Assessment and Plan (Free Text) Assessment: Ms. Mckeon vicky 46 y/o female with hx of pancreatic CA s/p whipple who now has liver failure of unclear etiology and currently on hospice. Patient more responsive today. Able to sit up briefly at side of bed per nursing repots. pain controlled on dilaudid gtt. Appreciate palliaitve care recommendations. We will continue to follow
--- NOTE | 2017-04-08 11:12 | CP.PCM.PN ---
Subjective - Date & Time of Evaluation Date of Evaluation: 04/06/17 Time of Evaluation: 20:00 - Subjective Subjective: patiet minimally responsive. Appears comfortable and in no acute distress. Family at bedside. Objective - Vital Signs/Intake and Output Vital Signs (last 24 hours): Temp Pulse Resp BP Pulse Ox 98.7 F 84 16 106/64 100 04/07/17 06:00 04/05/17 16:00 04/07/17 06:00 04/07/17 06:00 04/05/17 16:00 Intake and Output: 04/08/17 04/08/17 06:59 18:59 Intake Total 100 Balance 100 - Medications Medications: Current Medications Acetaminophen (Tylenol 650 Mg Supp) 650 mg RC Q4H PRN PRN Reason: Fever >100.4 F Hydromorphone HCl (Dilaudid 0.2 Mg/Ml Surgical Coder) 25 mls @ 0.3 mls/hr IV PRN PRN PRN Reason: PHYSICAL CHEMISTRY TEACHER PER MD ORDER Last Admin: 04/08/17 03:30 Dose: 0.3 mls/hr Lorazepam (Ativan) 1 mg IVP Q6H PRN; Protocol PRN Reason: Anxiety/seizures Last Admin: 04/08/17 01:43 Dose: 1 mg - Constitutional Appears: No Acute Distress - Eye Exam Eye Exam: Scleral icterus - Respiratory Exam Respiratory Exam: absent: Accessory Muscle Use - GI/Abdominal Exam GI & Abdominal Exam: Soft - Extremities Exam Extremities Exam: Calf Tenderness Assessment and Plan - Assessment and Plan (Free Text) Assessment: Ms. Mckeon vicky 46 y/o female with hx of pancreatic CA s/p whipple who now has liver failure of unclear etiology and currently on hospice. Patient more responsive today. Able to sit up briefly at side of bed per nursing reports. pain controlled on dilaudid gtt. Appreciate palliative care recommendations. Patient gtt had to be changed from morphine due to hospital shortage. Spoke at length with patients family regarding prognosis, process of dying, and purpose of palliative treatment. Prognosis is likely days.
[2017-04-08] MEDS ORDERED: Lactulose 10 gm/15 ml (Rectal Use) PR ONE (11:16)
--- NOTE | 2017-04-09 09:40 | CP.PCM.PN ---
<Claudia Snyder - Last Filed: 04/09/17 13:04> Subjective - Date & Time of Evaluation Date of Evaluation: 04/09/17 Time of Evaluation: 09:35 - Subjective Subjective: Medicine progress ana for Dr Salcedo and Dr Damon No overnight events. Patient responds to deep chest rubs. Not oriented x3. Objective - Vital Signs/Intake and Output Vital Signs (last 24 hours): Temp Pulse Resp BP Pulse Ox 98.7 F 84 16 106/64 100 04/07/17 06:00 04/05/17 16:00 04/07/17 06:00 04/07/17 06:00 04/05/17 16:00 Intake and Output: 04/09/17 04/09/17 06:59 18:59 Intake Total 0 Balance 0 - Medications Medications: Current Medications Acetaminophen (Tylenol 650 Mg Supp) 650 mg RC Q4H PRN PRN Reason: Fever >100.4 F Hydromorphone HCl (Dilaudid 0.2 Mg/Ml Archival Records Clerk) 25 mls @ 0.3 mls/hr IV PRN PRN PRN Reason: TIE BUYER PER MD ORDER Last Admin: 04/08/17 20:18 Dose: 0.3 mls/hr Lorazepam (Ativan) 1 mg IVP Q6H PRN; Protocol PRN Reason: Anxiety/seizures Last Admin: 04/08/17 22:10 Dose: 1 mg - Constitutional Appears: No Acute Distress, Older Than Stated Age, Cachectic, Chronically Ill - Head Exam Head Exam: ATRAUMATIC, NORMAL INSPECTION, NORMOCEPHALIC - Eye Exam Eye Exam: Scleral icterus - ENT Exam ENT Exam: Mucous Membranes Dry - Neck Exam Neck Exam: Normal Inspection - Respiratory Exam Respiratory Exam: Clear to Ausculation Bilateral. absent: Rhonchi, Wheezes, Respiratory Distress - Cardiovascular Exam Cardiovascular Exam: Tachycardia, REGULAR RHYTHM, +S1, +S2 - GI/Abdominal Exam GI & Abdominal Exam: Soft, Normal Bowel Sounds. absent: Distended, Tenderness - Extremities Exam Extremities Exam: Pedal Edema - Neurological Exam Additional comments: responds to pain, and chest rubs. - Skin Skin Exam: Dry, Warm Assessment and Plan - Assessment and Plan (Free Text) Assessment: Patient is a 46 y/o with pmh of pancreatic cancer s/p Whipple procedure, s/p chemotherapy, ESLD, CAD, gastric wall tear s/p repair, asthma, Hepatic encephalopathy presented with worsening hepatic encephalopathy. Plan: 1) Comfort care only 2) DNI/DNR/Hospice 3) Dilaudid pump in place 4) ativan prn 5) tylenol prn for fever Patient seen, examined, discussed with Dr Damon. <Nagi Damon - Last Filed: 05/01/17 14:58> Objective - Vital Signs/Intake and Output Vital Signs (last 24 hours): Temp Pulse Resp BP Pulse Ox 96.6 F L 84 16 106/64 100 04/13/17 06:00 04/05/17 16:00 04/07/17 06:00 04/07/17 06:00 04/05/17 16:00 Attending/Attestation - Attestation I have personally seen and examined this patient.: Yes I have fully participated in the care of the patient.: Yes I have reviewed all pertinent clinical information, including history, physical exam and plan: Yes Notes (Text): 05/01/17 14:58 Medical record note made by the resident after discussion with my direction and input after the patient was personally seen and examined by me. I have reviewed the chart and agree that the record accurately reflects by personal performance of the history, physical exam, data review, and medical decision-making, in the course for the patient. I have also personally directed the plan of care.
[2017-04-09] MEDS: HYDROmorphone 0.2 mg/ml (25ml) 25 ML IV PRN (13:25)
--- NOTE | 2017-04-09 14:20 | CP.PCM.PN ---
Subjective - Date & Time of Evaluation Date of Evaluation: 04/09/17 Time of Evaluation: 11:00 - Subjective Subjective: Lethargic, responds to tactile stimuli. Tachycardia Objective - Vital Signs/Intake and Output Vital Signs (last 24 hours): Temp Pulse Resp BP Pulse Ox 98.7 F 84 16 106/64 100 04/07/17 06:00 04/05/17 16:00 04/07/17 06:00 04/07/17 06:00 04/05/17 16:00 Intake and Output: 04/09/17 04/09/17 06:59 18:59 Intake Total 0 Balance 0 - Medications Medications: Current Medications Acetaminophen (Tylenol 650 Mg Supp) 650 mg RC Q4H PRN PRN Reason: Fever >100.4 F Hydromorphone HCl (Dilaudid 0.2 Mg/Ml Dielectric Machine Operator) 25 mls @ 0.4 mls/hr IV PRN PRN PRN Reason: PHYSICAL THERAPIST TECHNICIAN PER MD ORDER Last Admin: 04/09/17 13:25 Dose: 0.4 mls/hr Lorazepam (Ativan) 1 mg IVP Q12H TK PRN Reason: Protocol Last Admin: 04/09/17 11:52 Dose: 1 mg - Constitutional Appears: Cachectic, Chronically Ill - Head Exam Head Exam: NORMAL INSPECTION - Eye Exam Eye Exam: Scleral icterus - ENT Exam ENT Exam: Mucous Membranes Dry, Normal Oropharynx - Neck Exam Neck Exam: Normal Inspection - Respiratory Exam Respiratory Exam: Decreased Breath Sounds, NORMAL BREATHING PATTERN - Cardiovascular Exam Cardiovascular Exam: Tachycardia, REGULAR RHYTHM - GI/Abdominal Exam GI & Abdominal Exam: Distended, Soft, Diminished Bowel Sounds - Extremities Exam Extremities Exam: Normal Capillary Refill Additional comments: 2 + edema of lower extremities - Back Exam Back Exam: NORMAL INSPECTION - Neurological Exam Neurological Exam: Altered - Skin Skin Exam: Dry Additional comments: jaundice Assessment and Plan - Assessment and Plan (Free Text) Assessment: 46 year old female with hsity of pancreatic cancer, hepatorenal failure. Patient is under [facility] for management of pain and restlessness. Family having hard time coping with patient situation Extensive discussion with family regarding goals of care and comfort measures. patiwent mother and cousins asking about artificial feeding. Reinforced the burdens of artificial feeding in dying patient Affirmed family's wish to allow a natural . Psychosocial support given. Plan: Increase Dilaudid continuos infusion to 0.4 mg/hr. Ativan 1 mg IV scheduled dosing twice daily.
[2017-04-09] MEDS ORDERED: HYDROmorphone 0.2 mg/ml (25ml) 25 ML IV PRN ×2 (18:05)
--- NOTE | 2017-04-10 00:10 | PN ---
DATE: 04/09/2017 SUBJECTIVE: The patient is lethargic, responds only to noxious stimuli, tachycardic. Family is at t he bedside. VITAL SIGNS: Reveals T-max of 98.4, pulse 84, respirations 16, blood pressure is 106/64, pulse ox is 100% on room air. MEDICATIONS: The patient's medications were reviewed. She is still on Tylenol p.r.n. suppository fo r temperature greater than 100.4, Dilaudid 0.2 mg per mL ONLINE MARKETING DIRECTOR at 0.4 mL an hour. The patient is also getting p.r.n. ONLINE MARKETING DIRECTOR dose as well to control the patient's agitation. She is on lorazepam 1 mg IV q. 1 2 hours p.r.n. OBJECTIVE: GENERAL: The patient is cachectic, icteric. HEENT: Head is normocephalic, atraumatic. Conjunctivae appears to be pale. Sclerae are icteric. M outh is dry. NECK: Supple. There is no adenopathy. LUNGS: Reveals decreased breath sounds bilaterally at the bases. CARDIOVASCULAR: Reveals tachycardia with regular rhythm. ABDOMEN: Distended, soft, with diminished bowel sounds. EXTREMITIES: Showed normal capillary refilling without any significant changes. The patient still h as lower extremity edema. NEUROLOGIC: The patient is only responsive to noxious stimuli. Otherwise, she is comatose. SKIN: Turgor is decreased. The patient has obviously icteric skin. ASSESSMENT NOTES AND PLAN: A 46-year-old female with end-stage liver failure and a background histor y of having carcinoma of the pancreas, status post Whipple, status post adjuvant chemotherapy. The p deni is under hospice services for the management of pain and restlessness. Family was having a cortez rd time coping with the patient's situation. I had a long discussion with the patient's daughter cameron loera and also had a family meeting. Apparently, if the patient continues to be in this situation , then they will have to make arrangements for patient to be cared for by hospice in a bala e situation. Psychosocial support was given to the family and I spoke at length to the daughter and counseled her at this time. The patient's Dilaudid infusion has been increased and she is continuing to get her Ativan. Danilo Patel MD cc: [phone] TT: 04/10/2017 00:09:20 Confirmation # [id number] Dictation # [id number] mn
[2017-04-10] MEDS: HYDROmorphone 0.2 mg/ml (25ml) 25 ML IV PRN ×4 (01:27→23:33)
[2017-04-10] MEDS ORDERED: Scopolamine 1.5 mg/24 hr Patch TD SCH (09:00)
--- NOTE | 2017-04-10 09:46 | CP.PCM.PN ---
Subjective - Date & Time of Evaluation Date of Evaluation: 04/10/17 Time of Evaluation: 09:00 - Subjective Subjective: Tayhpnea, tacycardia, restless. Increased upper airway secretions Objective - Vital Signs/Intake and Output Vital Signs (last 24 hours): Temp Pulse Resp BP Pulse Ox 98.7 F 84 16 106/64 100 04/07/17 06:00 04/05/17 16:00 04/07/17 06:00 04/07/17 06:00 04/05/17 16:00 - Medications Medications: Current Medications Acetaminophen (Tylenol 650 Mg Supp) 650 mg RC Q4H PRN PRN Reason: Fever >100.4 F Hydromorphone HCl (Dilaudid 0.2 Mg/Ml Dye Mixer) 25 mls @ 0.4 mls/hr IV PRN PRN PRN Reason: INTERNAL INVESTIGATOR PER MD ORDER Last Admin: 04/10/17 01:27 Dose: 0.4 mls/hr Lorazepam (Ativan) 1 mg IVP Q12H TK PRN Reason: Protocol Last Admin: 04/10/17 08:49 Dose: 1 mg Scopolamine (Transderm-Scop) 1 patch TD Q3D TK Last Admin: 04/10/17 09:09 Dose: 1 patch - Constitutional Appears: Cachectic, Chronically Ill - Eye Exam Eye Exam: Scleral icterus - Respiratory Exam Respiratory Exam: Decreased Breath Sounds Additional comments: tachypnea - Cardiovascular Exam Cardiovascular Exam: Tachycardia, +S1, +S2 - GI/Abdominal Exam GI & Abdominal Exam: Distended, Soft, Diminished Bowel Sounds - Exam Additional comments: oliguria - Neurological Exam Neurological Exam: Altered - Skin Skin Exam: Dry, Warm Additional comments: jaundice Assessment and Plan - Assessment and Plan (Free Text) Assessment: 46 year old female hepatorenal failure, history of pancreatic cancer. Family at bedside. Signs and symptoms of impending explained. Psychological support given Plan: Ativan 1 mg IV now Scopolamine transdermal patch. Gentle suctioning as needed
[2017-04-10] MEDS ORDERED: HYDROmorphone 0.5 mg/0.5 ml ISec IVP STA (11:23)
[2017-04-10] MEDS ORDERED: HYDROmorphone 0.2 mg/ml (25ml) 25 ML IV PRN (11:25)
--- NOTE | 2017-04-10 15:05 | CP.PCM.PN ---
<LillianClaudia - Last Filed: 04/11/17 06:56> Subjective - Date & Time of Evaluation Date of Evaluation: 04/10/17 Time of Evaluation: 10:30 - Subjective Subjective: Medicine progress note for Dr Salcedo and Dr Damon Family at bedside. Patient with agonal breathing. Withdraws lower extremities with pain. Objective - Vital Signs/Intake and Output Vital Signs (last 24 hours): Temp Pulse Resp BP Pulse Ox 98.7 F 84 16 106/64 100 04/07/17 06:00 04/05/17 16:00 04/07/17 06:00 04/07/17 06:00 04/05/17 16:00 - Medications Medications: Current Medications Acetaminophen (Tylenol 650 Mg Supp) 650 mg RC Q4H PRN PRN Reason: Fever >100.4 F Hydromorphone HCl (Dilaudid 0.2 Mg/Ml Drywall Stripper Helper) 25 mls @ 2.5 mls/hr IV PRN PRN PRN Reason: REFERRAL SPECIALIST PER MD ORDER Last Admin: 04/10/17 13:46 Dose: 2.5 mls/hr Lorazepam (Ativan) 1 mg IVP Q12H TK PRN Reason: Protocol Last Admin: 04/10/17 11:48 Dose: Not Given Scopolamine (Transderm-Scop) 1 patch TD Q3D [facility] Last Admin: 04/10/17 09:09 Dose: 1 patch - Constitutional Appears: No Acute Distress, Older Than Stated Age, Chronically Ill - Head Exam Head Exam: ATRAUMATIC, NORMAL INSPECTION, NORMOCEPHALIC - Eye Exam Eye Exam: Scleral icterus - ENT Exam ENT Exam: Mucous Membranes Dry - Neck Exam Neck Exam: Normal Inspection - Respiratory Exam Respiratory Exam: absent: NORMAL BREATHING PATTERN (agonal) - Cardiovascular Exam Cardiovascular Exam: +S1, +S2 - GI/Abdominal Exam GI & Abdominal Exam: Soft, Normal Bowel Sounds. absent: Distended - Extremities Exam Extremities Exam: Pedal Edema - Neurological Exam Additional comments: Obtunded and unresponsive. - Psychiatric Exam Additional comments: unable to assess. - Skin Additional comments: Jaundice. Assessment and Plan - Assessment and Plan (Free Text) Assessment: Patient is a 46 y/o with pmh of pancreatic cancer s/p Whipple procedure, s/p chemotherapy, ESLD, CAD, gastric wall tear s/p repair, asthma, Hepatic encephalopathy presented with worsening hepatic encephalopathy. Plan: 1) Comfort care only 2) DNI/DNR/Hospice 3) Dilaudid pump in place, dose increased to 0.5 mg continuous infusion 4) ativan prn 5) tylenol prn 6) scopolamine patch TID. Patient seen, examined, discussed with Dr Damon. <Nagi Damon - Last Filed: 05/02/17 18:43> Objective - Vital Signs/Intake and Output Vital Signs (last 24 hours): Temp Pulse Resp BP Pulse Ox 96.6 F L 84 16 106/64 100 04/13/17 06:00 04/05/17 16:00 04/07/17 06:00 04/07/17 06:00 04/05/17 16:00 Attending/Attestation - Attestation I have personally seen and examined this patient.: Yes I have fully participated in the care of the patient.: Yes I have reviewed all pertinent clinical information, including history, physical exam and plan: Yes Notes (Text): 05/01/17 15:13 Medical record note made by the resident after discussion with my direction and input after the patient was personally seen and examined by me. I have reviewed the chart and agree that the record accurately reflects by personal performance of the history, physical exam, data review, and medical decision-making, in the course for the patient. I have also personally directed the plan of care.
--- NOTE | 2017-04-10 23:17 | PN ---
DATE: 04/10/2017 This is the patient's hospital visit on hospice the medical floor. For Dr. Patle. SUBJECTIVE: The patient is a 46-year-old female lying lethargic, responds to noxious stimuli only, f amily at the bedside, in no acute distress with her analgesics increased as per Dr. Patel recently. She is resting comfortably. PHYSICAL EXAMINATION: GENERAL: The patient is on hospice with her physical examination showing: HEART: Tachy rate. LUNGS: Rare rhonchi. NEUROLOGIC: Arousable to painful stimuli earlier today reported. SKIN: Icteric. LABORATORY DATA: Her labs have not been drawn due to hospice protocols. ASSESSMENT: End-stage liver failure, history of carcinoma of the pancreas, status post Whipple proce dure with intractable pain of cancer, now relieved. Hospice to continue with comfort measures as per Peg Fuentes and Dr. Damon. Floyd Dallas MD cc: [phone] TT: 04/10/2017 23:15:48 Confirmation # [id number] Dictation # [id number] mn
[2017-04-11] MEDS: HYDROmorphone 0.2 mg/ml (25ml) 25 ML IV PRN ×2 (09:40→19:42)
--- NOTE | 2017-04-11 14:32 | CP.PCM.DIS ---
Provider - Provider Date of Admission: 04/03/17 16:48 Attending physician: Nagi Damon MD Primary care physician: Nagi Damon MD Discharge Exam - Head Exam Head Exam: ATRAUMATIC, NORMAL INSPECTION, NORMOCEPHALIC Discharge Plan - Follow Up Plan Condition: GOOD Disposition: HOME/ ROUTINE Referrals: Nagi Damon MD [Primary Care Provider] -
--- NOTE | 2017-04-11 14:54 | CP.PCM.PN ---
<LillianClaudia - Last Filed: 04/12/17 06:42> Subjective - Date & Time of Evaluation Date of Evaluation: 04/11/17 Time of Evaluation: 09:00 - Subjective Subjective: Medicine progress note for Dr Salcedo and Dr Damon service. Family at bed side. Agonal breathing, looks comfortable. Objective - Vital Signs/Intake and Output Vital Signs (last 24 hours): Temp Pulse Resp BP Pulse Ox 100 F H 84 16 106/64 100 04/11/17 04:23 04/05/17 16:00 04/07/17 06:00 04/07/17 06:00 04/05/17 16:00 Intake and Output: 04/11/17 04/11/17 06:59 18:59 Intake Total 0 0 Balance 0 0 - Medications Medications: Current Medications Acetaminophen (Tylenol 650 Mg Supp) 650 mg RC Q4H PRN PRN Reason: Fever >100.4 F Last Admin: 04/11/17 03:23 Dose: 650 mg Hydromorphone HCl (Dilaudid 0.2 Mg/Ml Unleavened Dough Mixer) 25 mls @ 2.5 mls/hr IV PRN PRN PRN Reason: GIZZARD SKIN REMOVER PER MD ORDER Last Admin: 04/11/17 09:40 Dose: 2.5 mls/hr Lorazepam (Ativan) 1 mg IVP Q12H TK PRN Reason: Protocol Last Admin: 04/10/17 23:33 Dose: 1 mg Scopolamine (Transderm-Scop) 1 patch TD Q3D [facility] Last Admin: 04/10/17 09:09 Dose: 1 patch - Constitutional Appears: No Acute Distress, Older Than Stated Age, Cachectic, Chronically Ill - Head Exam Head Exam: ATRAUMATIC, NORMAL INSPECTION, NORMOCEPHALIC - Eye Exam Eye Exam: Scleral icterus - ENT Exam ENT Exam: Mucous Membranes Dry - Neck Exam Neck Exam: Normal Inspection - Respiratory Exam Additional comments: + agonal breathing. - Cardiovascular Exam Cardiovascular Exam: Tachycardia, +S1, +S2 - GI/Abdominal Exam GI & Abdominal Exam: Soft, Normal Bowel Sounds. absent: Tenderness - Extremities Exam Extremities Exam: Pedal Edema - Neurological Exam Additional comments: Obtunded - Psychiatric Exam Additional comments: unable to assess due to mental status. - Skin Additional comments: + jaundice Assessment and Plan - Assessment and Plan (Free Text) Assessment: Patient is a 46 y/o with pmh of pancreatic cancer s/p Whipple procedure, s/p chemotherapy, ESLD, CAD, gastric wall tear s/p repair, asthma, Hepatic encephalopathy presented with worsening hepatic encephalopathy. Plan: 1) Comfort care only 2) DNI/DNR/Hospice 3) Dilaudid pump in place 4) ativan prn 5) tylenol prn 6) scopolamine patch TID. Patient seen, examined, discussed with Dr Damon. <Nagi Damon - Last Filed: 05/02/17 19:21> Objective - Vital Signs/Intake and Output Vital Signs (last 24 hours): Temp Pulse Resp BP Pulse Ox 96.6 F L 84 16 106/64 100 04/13/17 06:00 04/05/17 16:00 04/07/17 06:00 04/07/17 06:00 04/05/17 16:00 Attending/Attestation - Attestation I have personally seen and examined this patient.: Yes I have fully participated in the care of the patient.: Yes I have reviewed all pertinent clinical information, including history, physical exam and plan: Yes Notes (Text): 05/02/17 19:21 Medical record note made by the resident after discussion with my direction and input after the patient was personally seen and examined by me. I have reviewed the chart and agree that the record accurately reflects by personal performance of the history, physical exam, data review, and medical decision-making, in the course for the patient. I have also personally directed the plan of care.
--- NOTE | 2017-04-11 23:34 | PN ---
DATE: 04/11/[address] Patel. SUBJECTIVE: The patient is a hospice patient. The patient is a 46-year-old female lying lethargic, responsive only to noxious stimuli. Family at the bedside, in no acute distress with analgesics cont inuing and comfort measures implemented as per hospice protocols. She appears to be in no distress. OBJECTIVE: PHYSICAL EXAMINATION: VITAL SIGNS: Temperature 100 rectal. Vital signs were not done. HEENT: She is unresponsive to voice command. HEART: Tachy rate. LUNGS: Scattered rhonchi. SKIN: Icteric. LABORATORY DATA: Not done as per family's request with hospice protocols. ASSESSMENT: End-stage liver failure, cancer of the pancreas with Whipple procedure, intractable pain of cancer, now relieved with hospice measures. PLAN: To continue as per Ms. and Dr. Damon with prognosis for this patient grave. Floyd Dallas MD cc: [phone] TT: 04/11/2017 23:33:25 Confirmation # [id number] Dictation # [id number] mn
[2017-04-12] MEDS: HYDROmorphone 0.2 mg/ml (25ml) 25 ML IV PRN (05:54)
--- NOTE | 2017-04-12 08:20 | CP.PCM.PN ---
Subjective - Date & Time of Evaluation Date of Evaluation: 04/11/17 Time of Evaluation: 11:00 - Subjective Subjective: Altered, non verbal. Tahcycardia.Jaundice Objective - Vital Signs/Intake and Output Vital Signs (last 24 hours): Temp Pulse Resp BP Pulse Ox 101.6 F H 84 16 106/64 100 04/12/17 05:55 04/05/17 16:00 04/07/17 06:00 04/07/17 06:00 04/05/17 16:00 - Medications Medications: Current Medications Acetaminophen (Tylenol 650 Mg Supp) 650 mg RC Q4H PRN PRN Reason: Fever >100.4 F Last Admin: 04/12/17 05:55 Dose: 650 mg Hydromorphone HCl (Dilaudid 0.2 Mg/Ml Store Promoter) 25 mls @ 2.5 mls/hr IV PRN PRN PRN Reason: GATE TENDER PER MD ORDER Last Admin: 04/12/17 05:54 Dose: 2.5 mls/hr Lorazepam (Ativan) 1 mg IVP Q12H TK PRN Reason: Protocol Last Admin: 04/12/17 00:45 Dose: 1 mg Scopolamine (Transderm-Scop) 1 patch TD Q3D TK Last Admin: 04/10/17 09:09 Dose: 1 patch - Constitutional Appears: Cachectic, Chronically Ill - Eye Exam Eye Exam: Scleral icterus - ENT Exam ENT Exam: Mucous Membranes Dry, Normal Oropharynx - Respiratory Exam Respiratory Exam: Accessory Muscle Use, Decreased Breath Sounds - Cardiovascular Exam Cardiovascular Exam: Tachycardia, +S1, +S2 - GI/Abdominal Exam GI & Abdominal Exam: Distended, Soft, Diminished Bowel Sounds - Extremities Exam Additional comments: anasarca - Neurological Exam Neurological Exam: Altered Assessment and Plan - Assessment and Plan (Free Text) Assessment: 46 year old female admitted to [facility] with intractable pain, restlessness secondary to hepatorenal failure. Lengthy discussion with family regarding end of life care. Psychosocial support , end of life counseling provided Plan: No new recommendations. Continue current medical regimen as ordered
--- NOTE | 2017-04-12 12:02 | CP.PCM.PN ---
Subjective - Date & Time of Evaluation Date of Evaluation: 04/12/17 Time of Evaluation: 12:00 - Subjective Subjective: Tachypnea, tachycardia, febrile, moaning Objective - Vital Signs/Intake and Output Vital Signs (last 24 hours): Temp Pulse Resp BP Pulse Ox 103.5 F H 84 16 106/64 100 04/12/17 11:32 04/05/17 16:00 04/07/17 06:00 04/07/17 06:00 04/05/17 16:00 - Medications Medications: Current Medications Acetaminophen (Tylenol 650 Mg Supp) 650 mg RC Q4H TK Hydromorphone HCl (Dilaudid 0.2 Mg/Ml Dark Room Attendant) 25 mls @ 2.5 mls/hr IV PRN PRN PRN Reason: RN ONCOLOGY PER MD ORDER Last Admin: 04/12/17 05:54 Dose: 2.5 mls/hr Lorazepam (Ativan) 1 mg IVP Q12H TK PRN Reason: Protocol Last Admin: 04/12/17 11:33 Dose: 1 mg Scopolamine (Transderm-Scop) 1 patch TD Q3D TK Last Admin: 04/10/17 09:09 Dose: 1 patch - Constitutional Appears: Cachectic - Eye Exam Eye Exam: Scleral icterus - Respiratory Exam Respiratory Exam: Accessory Muscle Use Additional comments: irregular breathing - Cardiovascular Exam Cardiovascular Exam: Tachycardia - GI/Abdominal Exam GI & Abdominal Exam: Distended, Diminished Bowel Sounds - Exam Additional comments: oliguria - Neurological Exam Neurological Exam: Altered - Skin Additional comments: jaundice, Assessment and Plan - Assessment and Plan (Free Text) Assessment: 46 year old female under hospice services for management of intractable pain, fever, dyspnea. History of hepatorenal failure. Temperature 102.8 Moaning. Tahcypnea, tachycardia. Counseled family regarding signs and symptoms of impending . Psychosocial support given Plan: As discussed with Dr Je Damon; Would recommend holding discharge to home hospice. Tylenol 650 mg RC scheduled every 4 hours.Cooling blanket prn. Increase Dilaudid to 1 mg/hr continuous dosing
[2017-04-12] MEDS ORDERED: HYDROmorphone 0.2 mg/ml (25ml) 25 ML IV PRN ×2 (12:08→12:22)
--- NOTE | 2017-04-12 13:00 | CP.PCM.PN ---
<Claudia Snyder - Last Filed: 04/12/17 17:35> Subjective - Date & Time of Evaluation Date of Evaluation: 04/12/17 Time of Evaluation: 08:20 - Subjective Subjective: Medicine progress note for Dr Damon and Dr Salcedo. Family at bed side. Patient with agonal breathing, febrile. Objective - Vital Signs/Intake and Output Vital Signs (last 24 hours): Temp Pulse Resp BP Pulse Ox 103.5 F H 84 16 106/64 100 04/12/17 11:32 04/05/17 16:00 04/07/17 06:00 04/07/17 06:00 04/05/17 16:00 - Medications Medications: Current Medications Acetaminophen (Tylenol 650 Mg Supp) 650 mg RC Q4H TK Hydromorphone HCl (Dilaudid 0.2 Mg/Ml Is Support Analyst) 25 mls @ 5 mls/hr IV PRN PRN PRN Reason: LAN/WAN ENGINEER PER MD ORDER Stop: 04/12/17 14:00 Last Admin: 04/12/17 12:57 Dose: 5 mls/hr Hydromorphone HCl (Dilaudid-Hp 1 Mg/Ml Is Support Analyst) 25 mls @ 1 mls/hr IV PRN PRN; Protocol PRN Reason: LAN/WAN ENGINEER PER MD ORDER Lorazepam (Ativan) 1 mg IVP Q12H TK PRN Reason: Protocol Last Admin: 04/12/17 11:33 Dose: 1 mg Scopolamine (Transderm-Scop) 1 patch TD Q3D [facility] Last Admin: 04/10/17 09:09 Dose: 1 patch - Constitutional Appears: No Acute Distress, Older Than Stated Age, Cachectic, Chronically Ill - Head Exam Head Exam: ATRAUMATIC, NORMAL INSPECTION, NORMOCEPHALIC - Eye Exam Eye Exam: absent: Scleral icterus - ENT Exam ENT Exam: Mucous Membranes Dry - Neck Exam Neck Exam: Normal Inspection - Respiratory Exam Respiratory Exam: Clear to Ausculation Bilateral. absent: Rhonchi, Wheezes, Respiratory Distress, Stridor, NORMAL BREATHING PATTERN (slow deep agonal breathings) - Cardiovascular Exam Cardiovascular Exam: Tachycardia, REGULAR RHYTHM, +S1, +S2 - GI/Abdominal Exam GI & Abdominal Exam: Soft, Normal Bowel Sounds. absent: Tenderness - Neurological Exam Neurological Exam: Altered. absent: Alert, Awake, Oriented x3 - Skin Skin Exam: Dry, Warm Assessment and Plan - Assessment and Plan (Free Text) Assessment: Patient is a 46 y/o with pmh of pancreatic cancer s/p Whipple procedure, s/p chemotherapy, ESLD, CAD, gastric wall tear s/p repair, asthma, Hepatic encephalopathy presented with worsening hepatic encephalopathy. Plan: 1) Comfort care only 2) DNI/DNR/Hospice 3) Dilaudid pump in place 4) ativan prn 5) tylenol prn josefina fever. 6) scopolamine patch TID. Patient seen, examined, discussed with Dr Damon. <Nagi Damon - Last Filed: 05/02/17 19:25> Objective - Vital Signs/Intake and Output Vital Signs (last 24 hours): Temp Pulse Resp BP Pulse Ox 96.6 F L 84 16 106/64 100 04/13/17 06:00 04/05/17 16:00 04/07/17 06:00 04/07/17 06:00 04/05/17 16:00 Attending/Attestation - Attestation I have personally seen and examined this patient.: Yes I have fully participated in the care of the patient.: Yes I have reviewed all pertinent clinical information, including history, physical exam and plan: Yes Notes (Text): 05/02/17 19:25 Medical record note made by the resident after discussion with my direction and input after the patient was personally seen and examined by me. I have reviewed the chart and agree that the record accurately reflects by personal performance of the history, physical exam, data review, and medical decision-making, in the course for the patient. I have also personally directed the plan of care.
[2017-04-12] MEDS ORDERED: HYDROmorphone 1 mg/ml PCA 25 ML IV PRN (14:00)
[2017-04-13 06:57] VITALS: TEMP 96.6
--- NOTE | 2017-04-13 08:34 | CP.PCM.PRO ---
Pronouncement of Note - Clinical Findings Physical Exam: No Response Verbal/Painful Stimuli (Time spent on pt:20 mins.), Absent Peripheral Pulses{Carotid & Femoral}, Absent Heart & Breath Sounds, No Pupillary Light Reflex, No Corneal Reflex, Pupils Fixed & Dilated, Absence of Vital Signs - Pronouncement Time Time of Pronouncement of : 08:15 (Pt at 8:10 AM) - Notifications Pronouncement Notifications: Family Notified (They are at bedside), Atending Notified Saw Feeder Notified: No - Autopsy Autopsy Requested: No [place] [id number] Additional Comments: Time spent on this pt is 20 mins.
--- NOTE | 2017-04-13 14:26 | CP.PCM.CON ---
Past Patient History - Infectious Disease Hx of Infectious Diseases: None - Tetanus Immunizations Tetanus Immunization: Unknown - Past Medical History & Family History Past Medical History?: Yes - Past Social History Smoking Status: Former Smoker Alcohol: None Drugs: Denies Home Situation {Lives}: With Family - CARDIAC Hx Cardiac Disorders: No - PULMONARY Hx Respiratory Disorders: Yes Hx Asthma: Yes - NEUROLOGICAL Hx Neurological Disorder: No - HEENT Hx HEENT Problems: No - RENAL Hx Chronic Kidney Disease: No - ENDOCRINE/METABOLIC Hx Endocrine Disorders: No - HEMATOLOGICAL/ONCOLOGICAL Hx Blood Disorders: Yes Hx Anemia: Yes (current) Hx Cancer: Yes - INTEGUMENTARY Hx Dermatological Problems: No - MUSCULOSKELETAL/RHEUMATOLOGICAL Hx Falls: No - GASTROINTESTINAL Hx Gastrointestinal Disorders: Yes Hx Gall Bladder Disease: Yes (biliary stent) Hx Pancreatitis: Yes (pancreatic cancer) - GENITOURINARY/GYNECOLOGICAL Hx Genitourinary Disorders: No - PSYCHIATRIC Hx Substance Use: No - SURGICAL HISTORY Hx Surgeries: Yes (whipple, x2, abd internal clamp) Hx Cholecystectomy: (biliary stent) - ANESTHESIA Hx Anesthesia: Yes Hx Anesthesia Reactions: No Hx Malignant Hyperthermia: No Meds Allergies/Adverse Reactions: Allergies Allergy/AdvReac Type Severity Reaction Status Date / Time No Known Allergies Allergy Verified 04/02/17 17:24 Results - Vital Signs Recent Vital Signs: Last Vital Signs Temp 96.6 F L 04/13/17 06:00 Pulse 84 04/05/17 16:00 Resp 16 04/07/17 06:00 BP 106/64 04/07/17 06:00 Pulse Ox 100 04/05/17 16:00
--- NOTE | 2017-04-13 18:43 | CP.PCM.DIS ---
<Claudia Snyder - Last Filed: 04/20/17 11:32> Provider - Provider Date of Admission: 04/03/17 16:48 Attending physician: Nagi Damon MD Primary care physician: Nagi Damon MD Consults: Palliative care nurse. Time Spent in preparation of Discharge (in minutes): 45 Diagnosis - Discharge Diagnosis (1) in hospice Status: Acute (2) Hepatic encephalopathy Status: Acute (3) SIRS (systemic inflammatory response syndrome) Status: Acute (4) Serum ammonia increased Status: Acute (5) End stage liver disease Status: Chronic (6) Pancreatic cancer Status: Chronic Hospital Course - Hospital Course Hospital Course: Patient is a 46 y/o with pmh of pancreatic cancer s/p Whipple procedure, s/p chemotherapy, ESLD, CAD, gastric wall tear s/p repair, asthma, Hepatic encephalopathy presented with AMS secondary to hyperammonium. On admission patient's ammonia level was elevated. As per patient's family patient was recently discharged from [facility] and didn't bean picker her medications from pharmacy. On admission, patient appeared obtunded, and was only responsive to deep chest rub. Patient was stabilized, was transferred to ICU due to mental status. Multiple services were consulted including Gi. Patient's family decided to follow patient's wish on Saturday04/03/17, and made patient DNI/DNR/ Hospice care only. Patient was admitted to inpatient hospice where she was made comfortable, pain controlled with morphine/Dilaudid LPN MEDICAL ASSISTANT pump, ativan prn, and Tylenol for fevers. Patient's family were at the bed side at all time. On @ 8:10 AM, patient , with the family at the bed side. was pronounced at 08:15 AM. - Date & Time of H&P Date of H&P: 04/04/17 Time of H&P: 22:42 Discharge Exam - Head Exam Head Exam: ATRAUMATIC, NORMAL INSPECTION, NORMOCEPHALIC - Eye Exam Pupil Exam: Fixed, Mydriatic Additional comments: No pupillary light reflex, no cornea l light reflex. - Respiratory Exam Additional comments: No respiration. - Cardiovascular Exam Cardiovascular Exam: absent: REGULAR RHYTHM Additional comments: No HR. No s1 or s2. - Neurological Exam Additional comments: No Response Verbal/Painful Stimuli, Absent Peripheral Pulses (Carotid & Femoral) . Discharge Plan - Follow Up Plan Condition: GOOD Disposition: WITH WITHOUT AUTOPSY Referrals: Nagi Damon MD [Primary Care Provider] - <Nagi Damon - Last Filed: 04/20/17 16:37> Provider - Provider Date of Admission: 04/03/17 16:48 Attending physician: Nagi Damon MD Primary care physician: Nagi Damon MD Attending/Attestation - Attestation I have personally seen and examined this patient.: Yes I have fully participated in the care of the patient.: Yes I have reviewed all pertinent clinical information, including history, physical exam and plan: Yes Notes (Text): 04/20/17 16:37 Medical record note made by the resident after discussion with my direction and input after the patient was personally seen and examined by me. I have reviewed the chart and agree that the record accurately reflects by personal performance of the history, physical exam, data review, and medical decision-making, in the course for the patient. I have also personally directed the plan of care.
== END 2017-04-13 08:15 | DRG 441 ==
LOC: 3RSO 16:48
PROVIDERS: ADMIT Internal Medicine; ATTEND Internal Medicine
DX: K72.91 Hepatic failure, unspecified with coma (principal); K76.7 Hepatorenal syndrome; R34 Anuria and oliguria; C25.9 Malignant neoplasm of pancreas, unspecified; D64.9 Anemia, unspecified; I10 Essential (primary) hypertension; K74.60 Unspecified cirrhosis of liver; I25.10 Atherosclerotic heart disease of native coronary artery without angina pectoris; J45.909 Unspecified asthma, uncomplicated; Z87.891 Personal history of nicotine dependence; Z66 Do not resuscitate; Z90.411 Acquired partial absence of pancreas; Z92.21 Personal history of antineoplastic chemotherapy; Z51.5 Encounter for palliative care; Z82.49 Family history of ischemic heart disease and other diseases of the circulatory system; Z83.3 Family history of diabetes mellitus; Z90.49 Acquired absence of other specified parts of digestive tract; G89.3 Neoplasm related pain (acute) (chronic); R00.0 Tachycardia, unspecified; R60.1 Generalized edema; R45.1 Restlessness and agitation; R10.32 Left lower quadrant pain